=== PATIENT | female | born 1975 | race Hispanic/Latino ===

== ENCOUNTER 2017-10-28 12:42 | Emergency (ER) | payer OTHER ==
--- NOTE | 2017-10-28 13:47 | RAD REPORT ---
EXAM DESCRIPTION: Katya Danielle (2 Views)10/28/2017 1:35 pm CLINICAL HISTORY: Cough COMPARISON: February 2017 FINDINGS: The lungs appear clear of acute infiltrate. The heart is normal size IMPRESSION: No acute abnormalities displayed
[2017-10-28] MEDS ORDERED: NA CHLORIDE 0.9% 1,000 ML ONE (13:53)
[2017-10-28 13:59] LABS: Absolute Lymphocytes (CBC) 1.3 K/uL (0.7-4.9); Absolute Monocytes 0.3 K/uL (0.1-1.3); Absolute Neutrophil 7.4 K/uL (1.8-8.0); Basophils % 0.4 % (0-1.3); Eosinophils % 0.4 % (0-4.4); Hematocrit 40.1 % (36.0-45.0); Lymphocytes % 14.2 % (15.3-44.8); MCH 31.2 pg (27.0-35.0); MCV 94.2 fL (80-100); Monocytes % 2.8 % (3.3-12.3); RBC Red Blood Cell Count 4.25 M/uL (3.86-4.86)
[2017-10-28 14:06] LABS: BUN Blood Urea Nitrogen 22 mg/dL (6-20); Bicarbonate 28 mEq/L (21-31); Glucose Level 122 mg/dL (65-120); Potassium 3.5 mEq/L (3.6-5.0); Sodium Level 135 mEq/L (135-145)
--- NOTE | 2017-10-28 16:41 | ER ---
Nurse's Notes [facility] Name: Gale Villalpando Age: 42 yrs Sex: Female : 1975 Arrival Date: 10/28/2017 Time: 12:45 Bed 25 Private MD: Diagnosis: Dehydration;Viral infection, unspecified Presentation: 10/28 12:49 Presenting complaint: Patient states: Sore throat, cough, congestion since Thursday. Seen aj by PCP and tested negative for flu and strep on Thursday. Started on ABX. Not feeling better. Transition of care: patient was not received from another setting of care. Onset of symptoms was October 25, 2017. Care prior to arrival: None. 12:49 Method Of Arrival: Ambulatory aj 12:49 Acuity: KAR 4 aj 13:57 Initial Sepsis Screen: Does the patient meet any 2 criteria? No. Patient's initial tl3 sepsis screen is negative. Does the patient have a suspected source of infection? No. Patient's initial sepsis screen is negative. Triage Assessment: 12:51 General: Appears in no apparent distress. ill, Behavior is calm, cooperative, aj appropriate for age. Pain: Complains of pain in back. EENT: Reports nasal congestion nasal discharge. Neuro: Level of Consciousness is awake, alert, obeys commands, Oriented to person, place, time, situation. Respiratory: Reports cough that is Airway is patent Respiratory effort is even, unlabored, Respiratory pattern is regular, symmetrical. Derm: Skin is intact, is healthy with good turgor, Skin is pink, warm \T\ dry. normal. 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 aj Historical: - Allergies: 12:51 Dilaudid; aj 12:51 Tramadol HCl; aj - Home Meds: 12:51 Cosentyx 300 mg subcutaneous once a month [Active]; hydrocodone-acetaminophen 10-325 mg aj Oral tab 1 tab PRN [Active]; Fentanyl Patch Topical 1 patch every 72 hours [Active]; Methotrexate (Anti-Rheumatic) Oral 25 mg WEEKLY [Active]; tizanidine oral oral [Active]; Celebrex Oral [Active]; 13:09 doxycycline hyclate 100 mg Oral cap [Active]; tl3 - PMHx: 12:51 Arthritis; spondylosis; aj - PSHx: 12:51 Cholecystectomy; Appendectomy; Hysterectomy; left knee; left foot; aj - Immunization history:: Adult Immunizations up to date. - Social history:: Smoking status: Patient/guardian denies using tobacco. Screenin:55 Abuse screen: Denies threats or abuse. Nutritional screening: No deficits noted. tl3 Tuberculosis screening: No symptoms or risk factors identified. Fall Risk None identified. Assessment: 13:05 General: Appears uncomfortable, well groomed, well developed, well nourished, Behavior tl3 is calm, cooperative, appropriate for age. Pain: Complains of pain in throat, back. Neuro: Level of Consciousness is awake, alert, obeys commands, Oriented to person, place, time, situation, Appropriate for age. Cardiovascular: Heart tones S1 S2 Patient's skin is warm and dry. Respiratory: Airway is patent Trachea midline Respiratory effort is even, unlabored, Respiratory pattern is regular, symmetrical, Breath sounds are clear bilaterally. GI: Bowel sounds present X 4 quads. GI: Reports anorexia. : No signs and/or symptoms were reported regarding the genitourinary system. EENT: Throat is reddened. Derm: No signs and/or symptoms reported regarding the dermatologic system. Musculoskeletal: No signs and/or symptoms reported regarding the musculoskeletal system. 13:09 Reassessment: seen by PCP and put of Doxycycline 100mg tabs to prevent pneumonia, strep tl3 and flu negative on Thursday. 13:57 Reassessment: Patient appears in no apparent distress at this time. No changes from tl3 previously documented assessment. Patient and/or family updated on plan of care and expected duration. Pain level reassessed. Patient is alert, oriented x 3, equal unlabored respirations, skin warm/dry/pink. pt resting, CT complete. 15:06 Reassessment: Patient appears in no apparent distress at this time. No changes from tl3 previously documented assessment. Patient and/or family updated on plan of care and expected duration. Pain level reassessed. Patient is alert, oriented x 3, equal unlabored respirations, skin warm/dry/pink. sleeping. 16:39 Reassessment: Patient appears in no apparent distress at this time. No changes from tl3 previously documented assessment. Patient and/or family updated on plan of care and expected duration. Pain level reassessed. Patient is alert, oriented x 3, equal unlabored respirations, skin warm/dry/pink. Jhoan at bedside discussing POC with pt and family. Vital Signs: 12:51 BP 117 / 88; Pulse 88; Resp 17; Temp 97.4; Pulse Ox 98% on R/A; Weight 72.57 kg; Height aj 5 ft. 4 in. (162.56 cm); 13:07 BP 124 / 91; Pulse 56; Resp 18; Pulse Ox 96% on R/A; tl3 15:06 BP 140 / 78; Pulse 56; Resp 18; Pulse Ox 100% on R/A; tl3 16:39 BP 123 / 77; Pulse 78; Resp 16; Temp 98.6; Pulse Ox 98% on R/A; tl3 12:51 Body Mass Index 27.46 (72.57 kg, 162.56 cm) ED Course: 12:45 Patient arrived in ED. mr 12:50 Triage completed. aj 12:51 Arm band placed on left wrist. Patient placed in an exam room. aj 13:00 Dianne Todd RN is Primary Nurse. tl3 13:01 Jhoan Coyle PA is PHCP. jr8 13:01 Florentin Bush MD is Attending Physician. jr8 13:25 Patient moved to radiology via wheelchair. sw 13:32 X-ray completed. Patient tolerated procedure well. sw 13:33 Patient moved back from radiology. sw 13:34 XRAY Chest Pa And Lat (2 Views) In Process Unspecified. EDMS 13:55 Patient has correct armband on for positive identification. Bed in low position. Call tl3 light in reach. Side rails up X2. Pulse ox on. NIBP on. Door closed. Lights dimmed. Warm blanket given. 13:55 Basic Metabolic Panel Sent. tl3 13:55 CBC with Diff Sent. tl3 13:55 No provider procedures requiring assistance completed. Inserted saline lock: 18 gauge tl3 in left antecubital area, using aseptic technique. Blood collected. 10/29 14:31 IV discontinued, intact, bleeding controlled, No redness/swelling at site. Pressure tl3 dressing applied. Administered Medications: 10/28 13:55 Drug: NS 0.9% 1000 ml Route: IV; Rate: 1000 ml; Site: left antecubital; Delivery: tl3 Primary tubing; 15:07 Follow up: IV Status: Completed infusion; IV Intake: 1000ml tl3 Intake: 15:07 IV: 1000ml; Total: 1000ml. tl3 Outcome: 16:40 Discharge ordered by MD. kim 17:17 Patient left the ED. 10/29 14:30 Discharged to home ambulatory. tl3 Condition: good Discharge instructions given to patient, Instructed on discharge instructions, follow up and referral plans. Demonstrated understanding of instructions, follow-up care. Signatures: Dispatcher [employer] Rere Kent, RN Nenita Sears Irene, RN RN iw Roszak, Josh, PA PA jr8 Warren, Shannon sw Lowrey, Tammy, RN RN tl3
--- NOTE | 2017-10-28 16:41 | EDPHYS ---
Physician Documentation [facility] Name: Gale Villalpando Age: 42 yrs Sex: Female : 1975 Arrival Date: 10/28/2017 Time: 12:45 Bed 25 Private MD: ED Physician Florentin Bush HPI: 10/28 13:34 This 42 yrs old Female presents to ER via Ambulatory with complaints of Sore jr8 Throat, Fever. 13:34 The patient presents with sore throat. The patient describes throat pain as constant. jr8 Onset: The symptoms/episode began/occurred acutely, 3 day(s) ago. Severity of symptoms: At their worst the symptoms were moderate, in the emergency department the symptoms are unchanged. Modifying factors: The symptoms are alleviated by nothing, the symptoms are aggravated by nothing, Patient's oral intake status: good. Associated signs and symptoms: Pertinent positives: cough, fever. The patient has not experienced similar symptoms in the past. The patient has been recently seen by a physician:. Patient seen by PCP. Given doxycycline for fevers and URI symptoms because she is on biologic for psoriatic arthritis. Still not getting better. 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 aj Historical: - Allergies: 12:51 Dilaudid; aj 12:51 Tramadol HCl; aj - Home Meds: 12:51 Cosentyx 300 mg subcutaneous once a month [Active]; hydrocodone-acetaminophen 10-325 mg aj Oral tab 1 tab PRN [Active]; Fentanyl Patch Topical 1 patch every 72 hours [Active]; Methotrexate (Anti-Rheumatic) Oral 25 mg WEEKLY [Active]; tizanidine oral oral [Active]; Celebrex Oral [Active]; 13:09 doxycycline hyclate 100 mg Oral cap [Active]; tl3 - PMHx: 12:51 Arthritis; spondylosis; aj - PSHx: 12:51 Cholecystectomy; Appendectomy; Hysterectomy; left knee; left foot; aj - Immunization history:: Adult Immunizations up to date. - Social history:: Smoking status: Patient/guardian denies using tobacco. ROS: 13:34 Eyes: Negative for injury, pain, redness, and discharge, Neck: Negative for injury, jr8 pain, and swelling, Abdomen/GI: Negative for abdominal pain, nausea, vomiting, diarrhea, and constipation, Back: Negative for injury and pain, MS/Extremity: Negative for injury and deformity, Skin: Negative for injury, rash, and discoloration, Neuro: Negative for headache, weakness, numbness, tingling, and seizure. 13:34 Constitutional: Positive for body aches, chills, fever, malaise. 13:34 ENT: Positive for rhinorrhea, sinus congestion, sore throat, Negative for drainage from ear(s), ear pain, sinus congestion, difficulty swallowing, difficulty handling secretions, hoarseness. 13:34 Respiratory: Positive for cough, brown and green, shortness of breath, Negative for dyspnea on exertion, wheezing. Exam: 13:34 Eyes: Pupils equal round and reactive to light, extra-ocular motions intact. Lids and jr8 lashes normal. Conjunctiva and sclera are non-icteric and not injected. Cornea within normal limits. Periorbital areas with no swelling, redness, or edema. ENT: Nares patent. No nasal discharge, no septal abnormalities noted. Tympanic membranes are normal and external auditory canals are clear. Oropharynx with no redness, swelling, or masses, exudates, or evidence of obstruction, uvula midline. Mucous membranes moist. Neck: Trachea midline, no thyromegaly or masses palpated, and no cervical lymphadenopathy. Supple, full range of motion without nuchal rigidity, or vertebral point tenderness. No Meningismus. Cardiovascular: Regular rate and rhythm with a normal S1 and S2. No gallops, murmurs, or rubs. Normal PMI, no JVD. No pulse deficits. Respiratory: Lungs have equal breath sounds bilaterally, clear to auscultation and percussion. No rales, rhonchi or wheezes noted. No increased work of breathing, no retractions or nasal flaring. Abdomen/GI: Soft, non-tender, with normal bowel sounds. No distension or tympany. No guarding or rebound. No evidence of tenderness throughout. Back: No spinal tenderness. No costovertebral tenderness. Full range of motion. Skin: Warm, dry with normal turgor. Normal color with no rashes, no lesions, and no evidence of cellulitis. MS/ Extremity: Pulses equal, no cyanosis. Neurovascular intact. Full, normal range of motion. Neuro: Awake and alert, GCS 15, oriented to person, place, time, and situation. Cranial nerves II-XII grossly intact. Motor strength 5/5 in all extremities. Sensory grossly intact. Cerebellar exam normal. Normal gait. Vital Signs: 12:51 BP 117 / 88; Pulse 88; Resp 17; Temp 97.4; Pulse Ox 98% on R/A; Weight 72.57 kg; Height aj 5 ft. 4 in. (162.56 cm); 13:07 BP 124 / 91; Pulse 56; Resp 18; Pulse Ox 96% on R/A; tl3 15:06 BP 140 / 78; Pulse 56; Resp 18; Pulse Ox 100% on R/A; tl3 16:39 BP 123 / 77; Pulse 78; Resp 16; Temp 98.6; Pulse Ox 98% on R/A; tl3 12:51 Body Mass Index 27.46 (72.57 kg, 162.56 cm) aj MDM: 13:01 Patient medically screened. [facility] 16:39 Data reviewed: vital signs, nurses notes, lab test result(s), radiologic studies, plain jr8 films, and as a result, I will discharge patient. Data interpreted: Pulse oximetry: on room air is 100 %. Interpretation: normal. Counseling: I had a detailed discussion with the patient and/or guardian regarding: the historical points, exam findings, and any diagnostic results supporting the discharge/admit diagnosis, lab results, radiology results, the need for outpatient follow up, a family practitioner, to return to the emergency department if symptoms worsen or persist or if there are any questions or concerns that arise at home. Response to treatment: the patient's symptoms have mildly improved after treatment, patient is well hydrated. 10/28 13:17 Order name: CBC with Diff [facility] 10/28 13:17 Order name: Basic Metabolic Panel [facility] 10/28 13:17 Order name: XRAY Chest Pa And Lat (2 Views); Complete Time: 13:50 [facility] 10/28 13:18 Order name: CBC with Automated Diff; Complete Time: 14:07 [facility] 10/28 13:18 Order name: Basic Metabolic Panel; Complete Time: 14:07 [facility] 10/28 16:07 Order name: Urine Dipstick--Ancillary (enter results); Complete Time: 16:49 [facility] 10/28 13:17 Order name: IV; Complete Time: 13:55 [facility] 10/28 13:17 Order name: Urine Dipstick-Ancillary (obtain specimen); Complete Time: 16:06 jr8 Administered Medications: 13:55 Drug: NS 0.9% 1000 ml Route: IV; Rate: 1000 ml; Site: left antecubital; Delivery: tl3 Primary tubing; 15:07 Follow up: IV Status: Completed infusion; IV Intake: 1000ml tl3 Disposition: 18:05 Co-signature as Attending Physician, Florentin Bush MD I agree with the assessment and kdr plan of care. Disposition: 10/28/17 16:40 Discharged to Home. Impression: Dehydration, Viral infection, unspecified. - Condition is Stable. - Discharge Instructions: Dehydration, Adult, Viral Infections. - Medication Reconciliation Form, Thank You Letter, Antibiotic Education, Prescription Opioid Use form. - Follow up: Private Physician; When: 2 - 3 days; Reason: Recheck today's complaints, Continuance of care, Re-evaluation by your physician. - Problem is new. - Symptoms have improved. Signatures: Dispatcher [employer] EDRere Talley RN Florentin Claudio MD MD [facility] Emelia Nj RN RN iw Jhoan Coyle, RICHARD PA jr8 Dianne Todd RN RN tl3 Corrections: (The following items were deleted from the chart) 17:17 16:40 10/28/2017 16:40 Discharged to Home. Impression: Dehydration; Viral infection, iw unspecified. Condition is Stable. Forms are Medication Reconciliation Form, Thank You Letter, Antibiotic Education, Prescription Opioid Use. Follow up: Private Physician; When: 2 - 3 days; Reason: Recheck today's complaints, Continuance of care, Re-evaluation by your physician. Problem is new. Symptoms have improved. jr8
[2017-10-28 16:44] LABS: Urine Blood 2+ (NEG); Urine Glucose NEGATIVE (NEG); Urine Protein NEGATIVE (NEG); Urine Specific Gravity 1.015 (1.005-1.030)
[2017-10-28 17:28] VITALS: BP 123/77; TEMP 98.6; O2SAT 98
== END 2017-10-28 17:17 | disposition home or self-care (01) ==
LOC: ER 12:42
DX: B34.9 Viral infection, unspecified (principal); E86.0 Dehydration; M19.90 Unspecified osteoarthritis, unspecified site; Z88.6 Allergy status to analgesic agent
CPT/HCPCS: 36415; 71046; 80048; 81003; 85025; 96360; 99284; J7030

== ENCOUNTER 2020-03-09 12:51 | Observation (INO) | payer OTHER ==
--- OUTSIDE RECORDS SUMMARY | 2020-03-09 12:53 | XMS REPORT | Clinical Summary ---
:1975 Author Organization [facility] Address [address] [place] [id number] Care Team Providers Name Role Phone Alberkanu Delia Primary Care Provider Allergies Active Allergy Reactions Severity Noted Date Comments Hydromorphone GI Intolerance Medium 12/02/2018 Methotrexate Rash Low 12/02/2018 Medications Medication Sig Dispensed Refills Start Date End Date Status celecoxib (CeleBREX) 0 11/07/2018 Active 200 MG capsule gabapentin (NEURONTIN) Take 300 mg by 0 11/15/2018 Active 300 mg capsule mouth 4 (four) times a day. estradiol (VIVELLE-DOT) 0 11/18/2018 Active 0.1 mg/24 hr secukinumab (COSENTYX) Inject 300 mg 0 Active 150 mg/mL syringe under the skin every 14 (fourteen) days. trazodone HCl Take 1 tablet by 0 Active (TRAZODONE ORAL) mouth nightly. dexlansoprazole Take 60 mg by 0 Active (DEXILANT) 60 mg mouth daily. capsule HYDROcodone-acetaminoph 0 05/08/2015 Active en (NORCO) 10-325 mg per tablet hydrOXYzine (ATARAX) 50 Take 50 mg by 0 04/19/2019 Active MG tablet mouth Every 6 hours while awake as needed (RT). ipratropium (ATROVENT) ipratropium 0 Active 0.03 % nasal spray bromide 0.03 % nasal spray methocarbamol (ROBAXIN) methocarbamol 500 0 Active 500 MG tablet mg tablet lubiprostone (AMITIZA) AMITIZA 24 MCG 0 01/28/2019 Active 24 MCG capsule CAPS LORAZepam (ATIVAN) 1 MG lorazepam 1 mg 0 Active tablet tablet methotrexate 2.5 MG methotrexate 0 Active tablet sodium 2.5 mg tablet naloxegol (MOVANTIK) 25 Movantik 25 mg 0 Active mg tablet tablet tablet omeprazole (PriLOSEC) omeprazole 40 mg 0 Active 40 MG capsule capsule,delayed release predniSONE (DELTASONE) prednisone 10 mg 0 Active 10 mg tablet tablet promethazine promethazine 25 mg 0 Active (PHENERGAN) 25 MG tablet tablet temazepam (RESTORIL) 15 temazepam 15 mg 0 Active mg capsule capsule triazolam (HALCION) triazolam 0.25 mg 0 Active 0.25 MG tablet tablet morphine (MORPHABOND every 12 (twelve) 0 02/10/2019 Active ER) 15 mg tablet,oral hours. only,ext.rel.12 hr leflunomide (ARAVA) 20 1 (one) time each 0 9 Active MG tablet day at the same time. methylPREDNISolone follow package 1 tablet 0 05/04/201905/09 (MEDROL, NILSA,) 4 mg directions 19 tablet Active Problems No known active problems Encounters Date Type Specialty Care Team Description 05/26/2019 Hospital Encounter Radiology Jason Curtis Cervica l radiculopathy 05/04/2019 Office Visit Orthopedic Surgery Jason Curtis Cervмарина l radiculopathy (Primary Dx); Tear of left ro tator cuff, unspecified tear extent, unspecified whether traumatic 05/04/2019 Abstract Orthopedic Surgery Jason Curtis MD 04/26/2019 Telephone Radiology Jason Curtis MD 04/20/2019 Office Visit Orthopedic Surgery Jason Curtis, Tear of left rotator cuff, unspecified tear extent, unspecified whether traumatic (Primary Dx); Cervical radicu lopathy 04/19/2019 Abstract Orthopedic Surgery Jason Cutris MD after 03/09/2019 Social History Tobacco Use Types Packs/Day Years Used Date Never Smoker Smokeless Tobacco: Never Used Alcohol Use Drinks/Week oz/Week Comments Not Currently Sex Assigned at Date Recorded Not on file Last Filed Vital Signs Not on file Plan of Treatment Health Maintenance Due Date Last Done Comments CERVICAL CANCER SCREENING 1995 INFLUENZA VACCINE 01/14/2020 Implants Implanted Type Area Zone Manager Device Shelf Model / Identifier Expiration Serial / Date Lot Bipolar Forceps [id number] Accessories N/A: N/A 05/14/2023 [id number] / Implanted: Qty: 1 on 12/09/2018 by Rashi Cardona MD at [facility] / [id number] Procedures Procedure Name Priority Date/Time Associated Diagnosis Comme nts MRI CERVICAL SPINE Routine 05/26/2019 2:28 Cervical radiculop athy Results for this WO CONTRAST PM NEUROLOGY TEACHER procedure are i n the results section. MRI SHOULDER WO Routine 04/27/2019 2:14 Tear of left rotator Results for this CONTRAST LEFT PM NEUROLOGY TEACHER cuff, unspecified tear proc edure are in extent, unspecified the resu lts whether traumatic section. XR SHOULDER 2+ VW Routine 04/20/2019 1:22 Acute pain of left Results for this LEFT PM NEUROLOGY TEACHER shoulder procedure are i n the results section. after 03/09/2019 Results MRI Cervical Spine Wo Contrast (05/26/2019 2:28 PM NEUROLOGY TEACHER) Specimen Narrative Performed At This result has an attachment that is no t available. EXAMINATION: MRI CERVICAL SPINE WO CONTRAST [facility] CLINICAL HISTORY: M54.12 Radiculopathy cervical region, Neck pain chronic normal neuro exam neg xray COMPARISON: None TECHNIQUE: Multiplanar multisequence non contrast enhanced examination was performed of the cervical spine. FINDINGS: Vertebral body heights are maintained. The cervicomedullary junction is unremarkable. No cord signal abnormality identified. No focal marrow lesions. No masses are present in the visualized prevertebral soft tissues. Cervical alignment is preserved with nor mal lordosis. There is no significant spondylolisthesis. Axial images through the disc spaces demonstrate the f ollowing: C1-C2: There is narrowing of the atlanto axial interval with spurring. There is no significant stenosis. C2-C3: No significant posterior disc dis ease, spinal canal or neural foraminal stenosis. C3-C4: No significant posterior disc dis ease, spinal canal or neural foraminal stenosis. C4-C5: There is minimal posterior spondy losis. There is no stenosis. There is mild disc desiccation. C5-C6: There is mild disc desiccation an d posterior spondylosis without stenosis. The foramina are patent. C6-C7: No significant posterior disc dis ease, spinal canal or neural foraminal stenosis. C7-T1: No significant posterior disc dis ease, spinal canal or neural foraminal stenosis. No significant posterior disc disease, s chandler canal or neural foraminal stenosis at other visualized levels. IMPRESSION: There is minimal spondylosis at C4-5 and C5-6 with disc desiccation and minimal bulges without stenosis. [facility]-[id number] Procedure Note Hm Interface, Radiology Results - 05/26/2019 2:50 PM NEUROLOGY TEACHER EXAMINATION: MRI CERVICAL SPINE WO CONTRAST CLINICAL HISTORY: M54.12 Radiculopathy cervical region, Neck pain chronic normal neuro exam neg xray COMPARISON: None TECHNIQUE: Multiplanar multisequence non contrast enhanced examination was performed of the cervical spine. FINDINGS: Vertebral body heights are maintained. The cervicomedullary junction is unremarkable. No cord signal abnormality identified. No focal marrow lesions. No masses are present in the visualized prevertebral soft tissues. Cervical alignment is preserved with nor mal lordosis. There is no significant spondylolisthesis. Axial images through the disc spaces dem onstrate the following: C1-C2: There is narrowing of the atlanto axial interval with spurring. There is no significant stenosis. C2-C3: No significant posterior disc dis ease, spinal canal or neural foraminal stenosis. C3-C4: No significant posterior disc dis ease, spinal canal or neural foraminal stenosis. C4-C5: There is minimal posterior spondy losis. There is no stenosis. There is mild disc desiccation. C5-C6: There is mild disc desiccation an d posterior spondylosis without stenosis. The foramina are patent. C6-C7: No significant posterior disc dis ease, spinal canal or neural foraminal stenosis. C7-T1: No significant posterior disc dis ease, spinal canal or neural foraminal stenosis. No significant posterior disc disease, s chandler canal or neural foraminal stenosis at other visualized levels. IMPRESSION: There is minimal spondylosis at C4-5 and C5-6 with disc desiccation and minimal bulges without stenosis. [facility]-[id number] Performing Organization Address City/State/ZIP Code Phon e Number [facility] [id number] [place] [address] MRI Shoulder Wo Contrast Left (04/27/2019 2:14 PM NEUROLOGY TEACHER) Specimen Narrative Performed At This result has an attachment that is no t available. MRI SHOULDER WO CONTRAST LEFT [facility] CLINICAL INDICATION: M75.102 Unspecifi ed rotator cuff tear or rupture of left shoulder not specified as traumatic, Shoulder pain rotator cuff tear impingement suspected TECHNIQUE: Multiplanar multisequence M R imaging of the left shoulder was performed without gadolinium contrast. COMPARISON: None. FINDINGS: ROTATOR CUFF: Tendinopathy and low-grade partial insertional tearing is present in the anterior supraspinatus at its insertion, the tear about 6 mm in greatest anterior posterior extent and less than 3 mm in length. This appears less than 50% of tendon fibers reflecting a low-grade partial te ar. No high-grade component tear is identified. LABRUM: Intact. AC JOINT: Mild arthrosis. Type 2 acrom ion noted. Lateral downsloping acromion is present with mild encroachment upon the acromiohumeral interval at 7 mm. BONES: No focal osseous abnormality. GLENOHUMERAL JOINT: No effusion or significant osteoar thritis. BICEPS TENDONS: Long and short head tend ons are intact. No subluxation of the long head from the bicipital groove. SOFT TISSUES: No muscle strain, atrophy or findings fo r bursitis. IMPRESSION: Low-grade partial insertional tear of the anterior sup raspinatus as described. No high-grade rotator cuff tear. *[id number] Procedure Note Hm Interface, Radiology Results Incoming - 04/27/2019 2:29 PM NEUROLOGY TEACHER MRI SHOULDER WO CONTRAST LEFT CLINICAL INDICATION: M75.102 Unspecifie d rotator cuff tear or rupture of left shoulder not specified as traumatic, Shoulder pain rotator cuff tear impingement suspected TECHNIQUE: Multiplanar multisequence MR imaging of the left shoulder was performed without gadolinium contrast. COMPARISON: None. FINDINGS: ROTATOR CUFF: Tendinopathy and low-grade partial insertional tearing is present in the anterior supraspinatus at its insertion, the tear about 6 mm in greatest anterior posterior extent and less than 3 mm in length. This appears less than 50% of tendon fibers reflecting a low-grade partial te ar. No high-grade component tear is identified. LABRUM: Intact. AC JOINT: Mild arthrosis. Type 2 acromi on noted. Lateral downsloping acromion is present with mild encroachment upon the acromiohumeral interval at 7 mm. BONES: No focal osseous abnormality. GLENOHUMERAL JOINT: No effusion or signi ficant osteoarthritis. BICEPS TENDONS: Long and short head tend ons are intact. No subluxation of the long head from the bicipital groove. SOFT TISSUES: No muscle strain, atrophy or findings for bursitis. IMPRESSION: Low-grade partial insertional tear of th e anterior supraspinatus as described. No high-grade rotator cuff tear. *[id number] Performing Organization Address City/[facility]/ZIP Code Phon e Number [facility] [address] [place] [address] XR Shoulder 2+ Vw Left (04/20/2019 1:22 PM NEUROLOGY TEACHER) Specimen Narrative Performed At This result has an attachment that is no t available. 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
--- OUTSIDE RECORDS SUMMARY | 2020-03-09 12:54 | XMS REPORT | Continuity of Care Document ---
:1975 Author Organization Player [employer] Care Team Providers Name Role Phone [employer] Unavailable Un available Problems Problem Status Onset Classification Date Comments Sourc e Date Reported L40.50 - Active 05/29/20 OP[facility] "ARTHROPATHIC [address] [place] PSORIASIS, UNSPEC Bradycardia Active 07/14/19 Problem 02/08/2019 Data Medi glenn (disorder) 15 migrated Group,2.1 6. from GE 840.1.1138 8 Centricity 3.3.615.1 35 on 11/11/14. , MARSHALL Meneses, [facility] [place] Carpal tunnel Active 07/14/19 Problem 02/08/2019 Data Me dical syndrome 15 migrated Group,2.16 . (disorder) from GE 840.1.113 88 Cent[facility] 3.3.615.1 35 on 11/11/14. , MARSHALL Meneses, [facility] [place] Discharge 02/22/20 02/24/2014 Diagnosis: Cyst, 14 Sirena theast ovarian LEFT LOWER Active 02/22/20 ABDOMINAL PAIN 14 [place] 616.0 - Active 01/28/20 [facility] CERVICITIS 723.4 14 [place] - BRACHIAL NEUR Allergic rhinitis Active 12/16/19 Problem 02/08/2019 Data [facility] (disorder) 14 migrated Group,2.1 6. from GE [id number] 8 [place] 3.3.615.1 35 on 11/11/14. , MARSHALL Meneses, [facility] [place] Elevated Active 12/16/19 Problem 02/08/2019 Data Medica l blood-pressure 14 migrated Group ,2.16. reading without from GE 840. [id number] diagnosis of Centricity 3.3.61 5.135 hypertension on 11/11/14. , O PID (finding) Gideon [facility] [place] PSORIATIC Active 11/10/19 ARTHRITIS FLARE 14 [place] CHEST PAIN Active 11/10/19 14 [place] ATYPICAL CHEST Active 11/10/19 PAIN 14 [place] Muscle pain Active 05/16/20 Problem 02/08/2019 Data Medi glenn (finding) 13 migrated Group,2.16 . from GE [id number] 8 [place] 3.3.615.1 35 on 11/11/14. , MARSHALL Meneses, [facility] [place] Hyperlipidemia Active 02/10/20 Problem 02/08/2019 Data M edical (disorder) 13 migrated Group,2.1 6. from GE [id number] 8 [place] 3.3.615.1 35 on 11/11/14. , MARSHALL Meneses, [facility] [place] Peripheral edema Active 11/19/19 Problem 02/08/2019 Data Medical (disorder) 13 migrated Group,2.1 6. from GE [id number] 8 [place] 3.3.615.1 35 on 11/11/14. , MARSHALL Meneses, [facility] [place] Cobalamin Active 10/28/19 Problem 02/08/2019 Data Medica l deficiency 13 migrated Group,2.1 6. (disorder) from GE 840.1.113 88 Cent[facility] 3.3.615.1 35 on 11/11/14. , MARSHALL Meneses, [facility] [place] Vitamin D Active 10/28/19 Problem 02/08/2019 Data Medica l deficiency 13 migrated Group,2.1 6. (disorder) from GE 840.1.113 88 Cent[facility] 3.3.615.1 35 on 11/11/14. , MARSHALL Meneses, [facility] [place] Anxiety disorder Active 10/27/19 Problem 02/08/2019 Data Medical (disorder) 13 migrated Group,2.1 6. from GE 840.1.1138 8 [place] 3.3.615.1 35 on 11/11/14. , MARSHALL Meneses, [facility] [place] Chronic pain Active 10/27/19 Problem 02/08/2019 Data Med ical syndrome 13 migrated Group,2.16 . (disorder) from GE 840.1.113 88 Cent[place] 3.3.615.1 35 on 11/11/14. , MARSHALL Meneses, [facility] [place] Elevated levels Active 10/27/19 Problem 02/08/2019 Data [facility] of transaminase & 13 migrated Gr oup,2.16. lactic acid from GE 840.1.11 388 dehydrogenase Centricity 3.3.6 15.135 (finding) on 11/11/14. , MARSHALL Meneses, [facility] [place] Fatigue (finding) Active 10/27/19 Problem 02/08/2019 Data H Medical 13 migrated Group,2.16 . from GE 840.1.1138 8 Cent[place] 3.3.615.1 35 on 11/11/14. , MARSHALL Meneses, [facility] [place] Insomnia Active 10/27/19 Problem 02/08/2019 Data Medica l (disorder) 13 migrated Group,2.1 6. from GE 840.1.1138 8 [place] 3.3.615.1 35 on 11/11/14. , MARSHALL Meneses, [facility] [place] Migraine Active 10/27/19 Problem 02/08/2019 Data Medica l (disorder) 13 migrated Group,2.1 6. from GE 840.1.1138 8 Cent[place] 3.3.615.1 35 on 11/11/14. , MARSHALL Meneses, [facility] [place] Psoriasis with Active 10/27/19 Problem 02/08/2019 Data [facility] edical arthropathy 13 migrated Group,2. 16. (disorder) from GE 840.1.113 88 [place] 3.3.615.1 35 on 11/11/14. 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 16. (disorder) 840.1.113 88 3.3.615.13 5 , MARSHALL Meneses, [place], M H [facility] [place] Cyst of ovary Resolved Problem 02/08/2019 MH Me dical (disorder) Group,2.1 6. 840.1.1138 8 3.3.615.13 5 , MARSHALL Meneses, [place], M H MARSHALL [place] Rheumatoid Active Problem 11/13/2013 arthritis [place] (disorder) PSORIATIC Active ARTHROPATHY [place] CHEST PAIN NOS Active [facility] Medications Medication Details Route Status Patient Ordering Order Source Instructions Provider Date Acetaminophen 300 MG 1 - 2 tab, Active / Codeine Phosphate PO, Q4H, 2013 Sirena theast 30 MG Oral Tablet Pain, # 20 [Tylenol with tab, 0 Codeine #3] Refill(s) Ondansetron 8 MG 8 mg = 1 Active Oral Tablet [Zofran] tab, PO, 2013 [place] TID, # 10 tab, 0 Refill(s) Ondansetron 4 mg, Route: Inactive IVP, Drug 2013 [facility] form: INJ, ONCE, Dosing Weight 75, kg, Priority: STAT, Start date: 02/21/14 11:45:00, Stop date: 02/21/14 11:45:00 Acetaminophen 325 MG 1 tab, Inactive / Hydrocodone Route: PO, [address] [facility] [address] Bitartrate 5 MG Oral Dosing Tablet Weight 75, kg, ONCE, STAT, Start date: 02/21/14 11:45:00, Stop date: 02/21/14 11:45:00 Morphine 4 mg, Route: Inactive IVP, Drug 2013 [facility] form: INJ, ONCE, Dosing Weight 75, kg, Priority: STAT, Start date: 02/21/14 10:11:00, Stop date: 02/21/14 10:11:00 Morphine 4 mg, Route: Inactive IVP, Drug 2013 [facility] form: INJ, ONCE, Dosing Weight 75, kg, Priority: STAT, Start date: 02/21/14 9:00:00, Stop date: 02/21/14 9:00:00 Zofran 4 mg, Route: Inactive IVP, Drug 2013 [facility] form: INJ, ONCE, Dosing Weight 75, kg, Priority: STAT, Start date: 02/21/14 8:52:00, Stop date: 02/21/14 8:52:00 Sodium Chloride 1,000 mL, Inactive 0.154 MEQ/ML 1,000 ml/hr, 2013 [facility] Injectable Solution Infuse Over: 1 hr, Route: IV, ONCE, Priority: STAT, Dosing Weight 75 kg, Start date: 02/21/14 8:52:00, Duration: 1 doses or times, Stop date: 02/21/14 8:52:00 Lyrica Notes: (Same No Longer as: Lyrica) Active 2013 [facility] Methylprednisolone Notes: (Same Inactive as:Solu-MEDR 2013 [facility] OL, A-Methapred) Demerol HCl Notes: (Same No Longer As: Demerol) Active 2013 [facility] Flexeril Notes: (Same No Longer As: Active 2013 [facility] Flexeril) Zanaflex Notes: (Same Inactive As: 2013 [facility] Zanaflex) Celebrex Notes: No Longer NSAID. Active 2013 [facility] Please check indication. Not for seizure. (Same As: CeleBREX) Enoxaparin Notes: (Same No Longer as: Lovenox) Active 2013 [facility] Demerol HCl Notes: (Same No Longer As: Demerol) Active 2013 [facility] Acetaminophen 325 MG Notes: Do No Longer / Hydrocodone not exceed Active 2013 [facility] Bitartrate 10 MG 4gm/day of Oral Tablet acetaminophe n. (Same as: [place] 325/10) Zanaflex 4 mg, PO, On Hold BID, 0 2013 [facility] Refill(s) Celebrex Daily, 0 On Hold Refill(s) 2013 [facility] Acetaminophen 325 MG 1 tab, PO, On Hold / Hydrocodone Q6H, as 2013 [facility] Bitartrate 10 MG needed for Oral Tablet pain, 0 Refill(s) Methotrexate 17.5 mg, PO, On Hold qWeek, 0 2013 [facility] Refill(s) nitroglycerin 0.4 mg Notes: (Same No Longer 10/14 sublingual tablet as:Nitroquic Active 2013 [place], Nitrostat) "Do Not Crush" Sublingual tablet atropine 0.5 mg, 5 No Longer mL, Route: Active 2013 [facility] IVP, Drug form: INJ, PRN, PRN Bradycardia, Start date: 11/09/13 20:46:00, Duration: 30 day, Stop date: 12/09/13 20:45:00 Cirpiano Notes: (Same No Longer As: Ambien) Active 2013 [facility] Morphine Notes: (Same No Longer as:MORPhine Active 2013 [facility] Sulfate) Allergies, Adverse Reactions, Alerts Substance Category Reaction Severity Reaction Status Date Comments S ource type Reported HYDROmorpho Assertion Drug Active Data 2.16.84 ne<sup>1</s allergy 3 migrated 0.1 .113 up> from [employer] 883.3.6 [place] 15.13 5 on 10/12/14. Originally documented as DILAUDID. severe headache, vomiting Toradol Assertion Drug Active 2.16.8 4 allergy 0.1.113 883.3.6 15.135 Dilaudid Assertion Drug Active 2.16. 84 allergy 0.1.113 883.3.6 15.135 Immunizations Immunization Date Given Site Status Last Comments Source Updated Hx influenza 03/02/2013 completed GE Result Med ica vaccine-unspecifi Comment: Gr oup,2.16. ed<sup>1</sup> received. 840.1 .35966 Migrated from 3.3.61 5.135 OBS ; Data , OPI D migrated from Jac n [employer] Centricity on 07/17/2015. Results Order Name Results Value Reference Date Interpretation Comments Sirena rce Range CHEM PANEL Lipase Lvl 50 73 - 393 02/21 [facility] CHEM PANEL A/G Ratio 1.2 0.7 - 1.6 02/21 [facility] CHEM PANEL Globulin 3.5 2.0 - 4.0 02/21 [facility] CHEM PANEL B/C Ratio 16 6 - 25 02/21 [facility] CHEM PANEL AGAP 13.4 10.0 - 02/21 MH 20.0 /2013 [facility] CHEM PANEL eGFR 108 02/21 <sup>1</sup>R esult [place] Comment: The eGFR is calculated using the CKD-EPI formula. In most young, healthy individuals the eGFR will be >90 mL/min/1.73m2 . The eGFR declines with age. An eGFR of 60-89 may be normal in some populations, particularly the elderly, for whom the CKD-EPI formula has not been extensively validated. Use of the eGFR is not recommended in the following populations:& lt;br/>
I ndividuals with unstable creatinine concentration s, including patients and those with serious co-morbid conditions.<b r/>
Patie nts with extremes in muscle mass or diet.

The data above are obtained from the National Kidney Disease Education Program (NKDEP) which additionally recommends that when the eGFR is used in patients with extremes of body mass index for purposes of drug dosing, the eGFR should be multiplied by the estimated BMI. CHEM PANEL Total 7.8 6.4 - 8.4 02/21 [facility] CHEM PANEL Bili Total 0.3 0.2 - 1.3 02/21 [facility] CHEM PANEL AST 15 0 - 37 02/21 [facility] CHEM PANEL Calcium Lvl 8.8 8.5 - 10.5 02/21 [facility] CHEM PANEL Sodium Lvl 137 135 - 145 02/21 [facility] CHEM PANEL Chloride Lvl 103 95 - 109 02/21 [facility] CHEM PANEL Potassium 3.4 3.5 - 5.1 02/21 Lvl [facility] CHEM PANEL CO2 24 24 - 32 02/21 [facility] CHEM PANEL Creatinine 0.7 0.5 - 1.4 02/21 [facility] CHEM PANEL Glucose Lvl 107 70 - 99 02/21 <sup>2</sup>I nterpretive [facility] Data: Adult reference range values reflect the clinical guidelines
of the [place] [employer]. CHEM PANEL Alk Phos 85 39 - 136 02/21 [facility] CHEM PANEL BUN 11 7 - 22 02/21 [facility] CHEM PANEL Albumin Lvl 4.3 3.5 - 5.0 02/21 [facility] CHEM PANEL ALT 15 0 - 65 02/21 [facility] HEMATOLOGY PT 12.9 12.0 - 02/21 14.7 /2013 [facility] HEMATOLOGY PTT 38.8 22.9 - 02/21 <sup>4</sup>I 35.8 /2013 nterpretive [facility] Data: Heparin Therapeutic Range: 57 - 92 Seconds HEMATOLOGY INR 0.97 0.85 - 02/21 <sup>3</sup>I MH 1.17 nterpretive [facility] Data: RECOMMENDED RANGES FOR PROTIME INR:
2.0-3.0 for most medical and surgical thromboemboli c states.
2.5-3.5 for artificial heart valves and recurrent embolism.<br/ >
INR SHOULD BE USED ONLY FOR PATIENTS ON STABLE ANTICOAGULANT THERAPY. HEMATOLOGY MPV 8.8 7.4 - 10.4 02/21 [facility] HEMATOLOGY MCHC 33.0 32.0 - 02/21 MH 36.0 /2013 [facility] HEMATOLOGY RDW 13.6 11.5 - 02/21 14.5 /2013 [facility] HEMATOLOGY Platelet 216 133 - 450 02/21 [facility] HEMATOLOGY MCH 29.8 27.0 - 02/21 31.0 /2013 [facility] HEMATOLOGY MCV 90.1 80.0 - 02/21 98.0 /2013 [facility] HEMATOLOGY Hgb 13.0 12.0 - 02/21 16.0 /2013 [facility] HEMATOLOGY Hct 39.4 36.0 - 02/21 48.0 /2013 [facility] HEMATOLOGY RBC 4.37 4.20 - 02/21 MH 5.40 /2013 [facility] HEMATOLOGY WBC 6.5 3.7 - 10.4 02/21 [facility] HEMATOLOGY Lymphocytes 1.4 1.0 - 5.5 02/21 # /2013 [facility] HEMATOLOGY Segs-Bands # 4.5 1.5 - 8.1 02/21 [facility] HEMATOLOGY Monocytes 7.9 2.0 - 12.0 02/21 [facility] HEMATOLOGY Eosinophils 0.7 0.0 - 4.0 02/21 [facility] HEMATOLOGY Segs 69.3 45.0 - 02/21 MH 75.0 /2013 [facility] HEMATOLOGY Lymphocytes 21.4 20.0 - 02/21 MH 40.0 /2013 [facility] HEMATOLOGY Basophils 0.7 0.0 - 1.0 02/21 [facility] HEMATOLOGY Monocytes # 0.5 0.0 - 0.8 02/21 [facility] URINE AND UA WBC 0-2 /HPF None Seen 02/21 STOOL /HPF /2013 [facility] URINE AND UA RBC 3-5 /HPF 0 - 2 02/21 STOOL /2013 [place] URINE AND UA Bacteria Few /HPF None Seen 02/21 STOOL /HPF /2013 [facility] URINE AND UA Mucus None Seen None Seen 02/21 STOOL (02/21/14 8:50 AM) [facility] st URINE AND UA Sq Epi Occasional Few /LPF 02/21 STOOL /LPF /2013 [facility] URINE AND Micro? Performed 02/21 STOOL (02/21/14 8:50 AM) [facility] st URINE AND UA Leuk Est Negative Negative 02/21 STOOL (02/21/14 8:50 AM) [facility] st URINE AND UA Nitrite Negative Negative 02/21 STOOL (02/21/14 8:50 AM) [facility] st URINE AND UA Ketones Negative Negative 02/21 STOOL *NA* /2013 [facility] (02/21/14 8:50 AM) URINE AND UA Color Yellow Yellow 02/21 STOOL *NA* /2013 [facility] (02/21/14 8:50 AM) URINE AND UA Spec Grav 1.010 <=1.030 02/21 STOOL [facility] URINE AND UA pH 6.0 5.0 - 8.0 02/21 STOOL [facility] URINE AND UA Glucose Negative Negative 02/21 STOOL (02/21/14 8:50 AM) [facility] URINE AND UA Protein Negative Negative 02/21 STOOL (02/21/14 8:50 AM) [facility] URINE AND UA Bili Negative Negative 02/21 STOOL *NA* /2013 [facility] (02/21/14 8:50 AM) URINE AND UA Blood Trace Negative 02/21 STOOL *ABN* /2013 [facility] (02/21/14 8:50 AM) URINE AND UA 0.2 0.1 - 1.0 02/21 STOOL Urobilinogen [facility] URINE AND UA Turbidity Clear Clear 02/21 STOOL (02/21/14 8:50 AM) [facility] URINE CHEM U Preg Negative Negative 02/21 (02/21/14 8:50 AM) [facility] CHEM PANEL eGFR 109 11/10 <sup>1</sup>R esult [facility] Comment: The eGFR is calculated using the CKD-EPI formula. In most young, healthy individuals the eGFR will be >90 mL/min/1.73m2 . The eGFR declines with age. An eGFR of 60-89 may be normal in some populations, particularly the elderly, for whom the CKD-EPI formula has not been extensively validated. Use of the eGFR is not recommended in the following populations:& lt;br/>
I ndividuals with unstable creatinine concentration s, including patients and those with serious co-morbid conditions.<b r/>
Patie nts with extremes in muscle mass or diet.

The data above are obtained from the National Kidney Disease Education Program (NKDEP) which additionally recommends that when the eGFR is used in patients with extremes of body mass index for purposes of drug dosing, the eGFR should be multiplied by the estimated BMI. CHEM PANEL Creatinine 0.7 0.5 - 1.4 11/10 Lvl [facility] HEMATOLOGY Sed Rate 13 0 - 20 11/10 [facility] HEMATOLOGY Platelet 231 133 - 450 11/10 [facility] HEMATOLOGY PTT 38.9 22.9 - 11/10 <sup>3</sup>I 35.8 nterpretive [facility] Data: Heparin Therapeutic Range: 57 - 92 Seconds HEMATOLOGY D-Dimer 0.22 11/10 <sup>2</sup>I nterpretive [facility] Data: In DIC, quantitative D-Dimer is generally greater than
0.66 ug/mL FEU. Values of quantitative D-Dimer less than
0.40 ug/mL FEU have been reported to be associated with a low
proba bility of deep vein thrombosis/pu lmonary embolism.<br/ >This test alone should not be used to rule out DVT/PE. CARDIAC CK MB 0.6 0.5 - 3.6 11/10 ENZYMES /2013 [facility] CARDIAC Troponin-I 0.02 0.00 - 11/10 ENZYMES 0.40 /2013 [facility] Pathology Reports No Data Provided for This Section Diagnostic Reports Report Value Date Source Spine cervical comp w EXAM: XR CERVICAL SPINE 7 VIEWS 09/12/2016 MARSHALL [place] obl-flx/ext DX DATE: 09/12/2016 12:37 PM CDT INDICATION: M54.12 Radiculopathy, cervical reg ion COMPARISON: None TECHNIQUE: AP, lateral, ope n-mouth odontoid, RPO and LPO, flexion, extension radiographs of the cervical spine show from the skull base through T1. FINDINGS: Vertebral body hei ghts and alignment are preserved. There is no disk height loss or neuroforaminal narrowing. There is no abnormal motion upon flexion or extension. No prevertebral or paraspinous soft tissue abnormality is identified. IMPRESSION: Normal cervical spine. No instability on the dyn amic views. Hand 2 views EXAM: XR BILATERAL HAND 2 VIEWS 09/12/2016 OPID [place] Bilateral DX DATE: 09/12/2016 12:38 PM CDT INDICATION: L40.50 Arthropathic psoriasis, uns pecified COMPARISON: 05/30/2015 TECHNIQUE: PA and lateral radiographs of the gareth ateral hands. FINDINGS: No fracture or dislocation. No osseous lesions. No significant joint abnormality. No soft tissue abnormality is identified. IMPRESSION: No significant osseous or joint abn ormality. Spine lumbar 2 or 3 EXAM: XR LUMBAR SPINE 2 VIEWS 09/12/2016 OPID [place] views DX DATE: 09/12/2016 12:37 PM CDT INDICATION: M54.16 Radiculopathy, lumbar regio n COMPARISON: CT dated 02/21/2014 and radiograph d ated 05/30/2015 TECHNIQUE: AP and lateral radiographs of the lum bar spine FINDINGS: 5 lumbar type, non-rib bearing vertebr al bodies are present. Redemonstration of the conge nital partial fusion of L1 and L2 posterior elements and narrowing of L1-L2 disc space. Disc spaces are otherwise unremarkable. Alignment and vertebral body heights are raquel l. No osseous lesions. No fr acture. Note is made of spina bifida occulta T11 and L5. No soft tissue abnormality is identified. IMPRESSION: 1. No significant change compared to lynette or study. 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 Shoulder 2+ Views Bilateral shoulder, 3 views. 05/30/2015 H OPID [place] Bilateral DX HISTORY: Arthritis. COMPARISON: Right shoulder radiography dated . RIGHT SHOULDER: No fracture or dislocation. No arthritic change is seen. Osseous and soft tissue structures appear normal. LEFT SHOULDER: No fracture or dislocation. No arthritic change is seen. Osseous and soft tissue structures appear normal. SL: 15 Spine lumbar 2 or 3 Lumbar spine, 3 views. 05/30/2015 OP ID [place] views DX HISTORY: Arthritis. COMPARISON: CT abdomen/pelvis dated 02/21/2014. FINDINGS: No fracture is seen. Vertebr al body heights are grossly maintained. No spondylolisthesis. 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 Congenital spina bifida occulta is noted at T11 and L5. SL: 15 Hand 3 views Bilateral hands, 3 views. 05/30/2015 [facility] D [place] Bilateral DX HISTORY: Arthritis. COMPARISON: Bilateral wrist radiography dated . RIGHT HAND: Normal bone mineral density. No soft tissue swelling. No joint space narrowing. No arthritic change is seen. LEFT HAND: Osseous and soft tissue stru ctures appear normal. No arthritic change or joint space narrowing. No soft tissue swelling. Normal alignment. SL: 15 Spine cervical 2 or 3 CERVICAL SPINE, 3 VIEWS 05/30/[facility] [place] [facility] DX HISTORY: Arthritis. COMPARISON: None available. FINDINGS: No fracture is seen. Vertebral body and disc spa ce heights maintained. Normal alignment. No prevertebral soft tissue sw elling. SL: 15 Pelvis w pelvis PELVIC ULTRASOUND: 02/21/2014 [facility] doppler US Transabdominal evaluation of the pelvis was done. The patient declined the transvaginal exam. The uterus is not visualized consistent with interval hysterectomy since the previous pelvic ultrasound on 08/03/2007. No significant abnormality of the bladder is demonstrated. The right ovary is 3.6 x 2.0 x 1.3 cm in size. The left ovary is 5.4 x 4.2 x 2.6 cm in size. There is satisfactory color flow and arterial Doppler signal demonstrated in both ovaries, with a decrease in venous congestion in both a dnexal regions since the previous ultrasound. A 1.7 cm cyst in the right ovary is seen. There is no evidence of other cysts, masses or free fluid. IMPRESSION: 1. No evidence of ovarian torsion. 2. Small right ovarian cyst. 3. No other significant ultrasound abnormalities in the pelvis. SL:13 Abdomen/Pelvis w IV CT ABDOMEN PELVIS WITH CONTRAST: 02/21/2014 [facility] contrast CT TECHNIQUE: Helical images were done with IV cont rast only. FINDINGS: The sigmoid colon is redundant. There is no significant diverticulosis or evidence of diverticulitis. The appendix is not visualized. The remainder of the GI tract is unremarkable. The uterus is absent. There is dilatation of the b oth ureters to the UVJs, left greater than right, without evidence of urinary tract calculus. This appears pre-existing, but slightly more prominent compared to the previous noncontrast CT on 02/01/2013 . There is normal enhancement of the kidneys and normal excretion of contrast into the collecting systems and ureters suggesting no significant obstruction. There is moderate urine in the bladder which is otherwise unremar kable. The liver, spleen, pancreas and adrenal glands show no significant abnormalities the gallbladder has been removed. There is no evidence of biliary dilatation. There is no other significant change from the pr evious exam. IMPRESSION: 1. No evidence of significant diverticular disea se. 2. Bilateral hydroureter, probably physiologic. 3. No other acute CT abnormalities in the abdome n or pelvis. SL:13 Shoulder series Examination: Right shoulder, 3 views 11/10/2013 [facility] History: Pain of unknown origin Comparison: None. Findings: Multiple views of the right shoulder show no acute bony fracture, joint dislocation, or suspicious osseous lesion. The soft tissues are unremarkable. IMPRESSION: No significant abnormality of the ri t shoulder. SL: 16 Chest 2 views Examination: Chest x-ray, 2 views 11/10/2013 [facility] History: Chest pain Comparison: None. Findings: The lungs are flex r and without focal consolidation. The cardiomediastinal silhouette is within normal limits. No pleural effusion or pneumothorax is seen. The osseous structures are without focal abnormality. IMPRESSION: No acute cardiopulmonary disease. SL: 16 Ext Upper Venous Right upper extremity venous Doppler ultrasound, November 09, 2013 09:02:00 PM 11/09/2013 [facility] [facility] Un[facility] US CLINICAL HISTORY: r/o DVT ; Pain, Limb TECHNIQUE: Real-time, graysc lorene and color Doppler sonographic examination was performed of the right upper extremity deep venous system. No previous study is available for comparison. FINDINGS: The interrogated right jugul ar, subclavian, axillary, brachial, and basilic veins, demonstrate normal compressibility and color-flow consistent with patency. Cephalic vein is not visualized. IMPRESSION: Negative for deep venous thrombosis of the right upper extremity. SL: 14 Abdomen/Pelvis wo 02/09/2013 [address] nd contrast CT REASON FOR EXAM: 724.5. COMPARISON: Reports of an ab domen ultrasound 09/24/2012 and pelvic ultrasound 08/03/2007 were reviewed. TECHNIQUE: Unenhanced axial helical CT images of the abdomen and pelvis were reviewed at 5 mm intervals. Reformatted coronal and sagittal images were also reviewed. Please note that lack of IV contrast limits evaluation of the solid organs and vasculature. Lack of oral contrast limits evaluation of the bowel. ABDOMEN / PELVIC CT FINDINGS: The visualized sussy g bases are remarkable for dependent subsegmental atelectasis. Normal heart size. The gallbladder is surgically absent. The kidneys are unremarkable . There is mild segmental dilatation of both ureters. There is no demonstrable renal or ureteral calculus. No hydronephrosis. The liver, pancreas, spleen and adrenal glands a re unremarkable. There is a nonobstructive randi wel gas pattern. Fluid is noted in nondistended segments of the small and large intestine in a nonspecific pattern. A small diverticulum is suspected involving the splenic fl exure without demonstrable a cute diverticulitis. The appendix is not seen. No free intraperitoneal air or ascites. The uterus is surgically abs ent. The partially distended urinary bladder is unremarkable. No demonstrable pelvic mass. The caliber of the abdominal aorta is within normal limits. There is no pathologic retroperitoneal lymphadenopathy. There is no significant abnormality of the subcu taneous soft tissues. There are incomplete fusion of the mid posterior bony elements at T12-L1, right posterior bony elements at L2 and the left posterior bony elements at L5-S1. There is likely partial bony fusion at L1-L2. The L1-L2 disc is hypoplast ic. The left iliac wing demonstrates a more AP orientation than noted on the right likely a developmental variation. IMPRESSION: 1. Post cholecystectomy and hysterectomy. 2. There is bilateral segmental ureterectasis. 3. No demonstrable urinary tract calculus. No hy dronephrosis. 4. Nonspecific nonobstructive bowel gas pattern. 5. Colonic diverticulum. 6. Osseous findings as described above. Please correlate clinically and consider follow- up imaging as indicated. Dictation code: 15 Consultation Notes No Data Provided for This Section Discharge Summaries No Data Provided for This Section History and Physicals No Data Provided for This Section Vital Signs Vital Sign Value Date Comments Source Diastolic (mm Hg) 125 02/21/[address] Systolic (mm Hg) 158 02/21/2014 [facility] Temperature Oral (F) 98.2 F 02/21/2014 [place] [facility] [facility] Rate 16 02/21/2014 [place] Systolic (mm Hg) 136 02/21/[place] [facility] Diastolic (mm Hg) 101 02/21/[address] Temperature Oral (F) 98.3 F 02/21/2014 [place] [facility] [facility] Rate 16 02/21/2014 [facility] Temperature Oral (F) 98.5 F 02/21/2014 [place] [facility] [facility] Rate 20 02/21/2014 [facility] Systolic (mm Hg) 151 02/21/2014 [place] Diastolic (mm Hg) 95 02/21/[address] Heart Rate 75 02/21/2014 [facility] Height 162.56 cm 02/21/2014 [facility] BMI Calculated 28.38 02/21/2014 [facility] Weight 75 02/21/2014 [facility] Heart Rate 87 11/11/2013 [facility] Temperature Oral (F) 98.1 F 11/11/2013 [place] [facility] [facility] Rate 21 11/11/2013 [facility] Systolic (mm Hg) 130 11/11/2013 [place] [facility] Diastolic (mm Hg) 94 11/11/[address] Systolic (mm Hg) 129 11/10/2013 [place] Diastolic (mm Hg) 86 11/10/[address] Heart Rate 74 11/10/2013 [facility] Respitory Rate 18 11/10/2013 [facility] Temperature Oral (F) 98.3 F 11/10/2013 [facility] [facility] Rate 18 11/10/2013 [facility] Diastolic (mm Hg) 86 11/10/[address] Systolic (mm Hg) 124 11/10/2013 [place] [facility] Heart Rate 76 11/10/2013 [facility] Temperature Oral (F) 98.0 F 11/10/2013 [facility] BMI Calculated 29.24 11/10/2013 [facility] Height 162.56 cm 11/10/2013 [facility] Weight 77.273 11/10/2013 [facility] Encounters Location Location Encounter Encounter Reason Attending ADM NH Stat us Source Details Type Number For Provider Date Date Visit OD [id number] 714.9 - JORY 10/21 Active O PID 0 INFLAMM MURO [place] [facility] [id number] SYMMETRI JORY 11/23 Active [place] 0 C MURO /2012 [facility] Inpatient [id number] Mendez 11/10 11/11 Gideon 8 Grant /2013 [facility] [place] [id number] [place] 02/21 02/21 [facility] 2 [facility] /2013 [facility] Outpatient [id number] YONY 02/20 [facility] Outpt Diag [id number] Chen 05/30 05/31 [facility] Out[facility] 4 [facility] [place] Outpatient [id number] AKUVI 05/27 Active [facility] 1 [place] [facility] Outpatient [id number] AKUVI 05/27 Active [facility] 2 EL Gideon [facility] Outpatient [id number] SAV 06/18 Active [facility] 3 RICHARD [facility] Outpt Diag [id number] Chen 09/12 09/13 [facility] 5 [facility] [place] Outpatient [id number] SAV 06/21 Active [facility] 4 RICHARD [facility] Ambulatory [id number] Sav 06/21 06/21 [facility] Primary Pre-Reg 4 [facility] Specialty [id number] 07/21 07/22 2.16.840 [place] [facility] .1.1138 8 Specialty 3.3.615 . Pharmacy [address] [facility] Outpatient [id number] HIGH JORY Cancel [place] [address] LIVER [facility] [place] [place] Procedures Procedure Code Date Perfomer Comments Source Appendectomy [id number] Medical Group,07.31.83 0.1..3. 615.135, MARSAHLL Meneses,[facility] [place] Cholecystectomy [id number] Medica l Group,07.31.83 [id number] 615.135, MARSHALL Meneses,[facility], [facility] [place] Hysterectomy [id number] Medical Group,07.31.83 [id number] 615.135, MARSHALL Meneses,[facility], MARSHALL Lina[place] Operative procedure [id number] [facility] dical on knee Group,2.16.84 [id number]. 615.135, MARSHALL Meneses,[facility], MARSHALL Linares Assessment and Plan No Data Provided for This Section Plan of Care No Data Provided for This Section Social History Social History Date Source Social History TypeResponse 11/10/2013 [id number] Alcohol Past Smoking Status Former smoker; Exposure to Tobacco Smoke None; Cigarette Smoking Last 365 Days No; Reg Smoking Cessation Counseling Yes entered on: 05/27/16 Social History TypeResponse 11/10/2013 [place] Fofana rougold Alcohol Past Smoking Status Former smoker; Exposure to Tobacco Smoke None; Cigarette Smoking Last 365 Days No; Reg Smoking Cessation Counseling Yes entered on: 05/27/16 Social History TypeResponse 11/10/2013 [facility] Alcohol Use: Past Smoking Status Former smoker, Exposure to Tobacco Smoke None, Cigarette Smoking Last 365 Days No, Reg Smoking Cessation Counseling Yes Social History TypeResponse 11/10/2013 MARSHALL sanchez Alcohol Past Smoking Status Former smoker; Exposure to Tobacco Smoke None; Cigarette Smoking Last 365 Days No; Reg Smoking Cessation Counseling Yes Social History TypeResponse 11/10/2013 [facility] romero Alcohol Past Smoking Status Former smoker; Exposure to Tobacco Smoke None; Cigarette Smoking Last 365 Days No; Reg Smoking Cessation Counseling Yes Family History No Data Provided for This Section Advance Directives No Data Provided for This Section Functional Status No Data Provided for This Section
--- OUTSIDE RECORDS SUMMARY | 2020-03-09 12:56 | XMS REPORT | Continuity of Care Document ---
:1975 Author Organization [facility] t Address [address] [place] [address] Care Team Providers Name Role Phone Kerrie Primary Care Physician Ever LUNDY Attending Clinician TAIWO Attending Clinician Unavailable HAROON Attending Clinician Unavailable Karen Aquino Attending Clinician EH Attending Clinician Unavailable Daja Hoang Attending Clinician JOSE Attending Clinician Unavailable ISI Attending Clinician Unavailable Kaleb Attending Clinician Narayan Burns Attending Clinician Narayan Burns Admitting Clinician Payers Payer Name Policy Type Policy Effective Date Expiration Date Sour ce Number AETNAAETNA [id number] [facility] Lissa CISNEROS/[id number] /16/2006-Present O Problems Condition Condition Condition Status Onset Resolution Last Treating Co mments Source Name Details Category Date Date Treatment Clinician Date L40.50 - Diagnosis Active 2014-062015-05-30 M emoria "ARTHROPAT 2-15 09:59:00 l HIC L40.50 - 00:01: Jac garcia PSORIASIS, "ARTHROPAT 00 UNSPEC HIC PSORIASIS, UNSPEC Active 05/29/2015 OPID Milagros Bradycardi Problem Active 2019-02-08 M emoria a 07-14 14:45:28 l (disorder) 00:00: Jac garcia Bradycardi 00 a (disorder) Active 07/14/2014 Problem 02/08/2019 Data migrated from [facility] on 11/11/14. Medical Group,[id number], MARSHALL Meneses, ADYAmy Linares Carpal Problem Active 2019-02-08 Memor ia tunnel - 14:45:28 l syndrome Carpal 00:00: Jac garcia (disorder) tunnel 00 syndrome (disorder) Active 07/14/2014 Problem 02/08/2019 Data migrated from [employer] on 11/11/14. Medical Group,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 Medical Group,[id number], MARSHALL Meneses, ADYAmy [place] Elevated Problem Active 2019-02-08 Mem oria blood-pres 7-03 14:45:28 l sure Elevated 00:00: Jac garcia reading blood-pres 00 without sure diagnosis reading of without hypertensi diagnosis on of (finding) hypertensi on (finding) Active 12/15/2013 Problem 02/08/2019 Data migrated from [employer] on 11/11/14. Medical Group,[id number], MARSHALL Meneses, MARSHALL Linares PSORIATIC Diagnosis Active 2013-11-14 Memoria ARTHRITIS 11-09 21:48:00 l FLARE 00:00: [place] PSORIATIC 00 ARTHRITIS FLARE Active 11/09/2013 [facility] CHEST PAIN Diagnosis Active 2013-11-10 Memoria 11-09 07:19:00 l CHEST 00:00: Gideon PAIN 00 Active 11/09/2013 [facility] ATYPICAL Diagnosis Active 2013-11-09 M emoria CHEST PAIN 11-09 19:48:00 l ATYPICAL 00:00: Jac n CHEST PAIN 00 Active 11/09/2013 [facility] Muscle Problem Active 2012-062019-02-08 Memor ia pain 07-17 14:45:28 l (finding) Muscle 00:00: Abigail nn pain 00 (finding) Active 05/16/2013 Problem 02/08/2019 Data migrated from [employer] on 11/11/14. Medical Group,[id number], MARSHALL Meneses,[facility] Hyperlipid Problem Active 2019-02-08 M emoria emia 02-09 14:45:28 l (disorder) 00:00: Jac n Hyperlipid 00 emia (disorder) Active 02/09/2013 Problem 02/08/2019 Data migrated from [employer] on 11/11/14. Medical Group,[id number], MAR[facility]ALL Meneses,[facility] [place] Peripheral Problem Active 2019-02-08 M emoria edema 6-06 14:45:28 l (disorder) 00:00: Jac n Peripheral 00 edema (disorder) Active 11/18/2012 Problem 02/08/2019 Data migrated from [employer] on 11/11/14. Medical Group,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 Medical Group,[id number], MARSHALL Meneses, ADYD [place] Anxiety Problem Active 2019-02-08 Michael shelli disorder 5-14 14:45:28 l (disorder) Anxiety 00:00: Her esparza disorder 00 (disorder) Active 10/26/2012 Problem 02/08/2019 Data migrated from [employer] on 11/11/14. Medical Group,[id number], MARSHALL Meneses, OPIAmy [place] Chronic Problem Active 2019-02-08 Michael shelli pain -14 14:45:28 l syndrome Chronic 00:00: Abigail nn (disorder) pain 00 syndrome (disorder) Active 10/26/2012 Problem 02/08/2019 Data migrated from [employer] on 11/11/14. Medical Group,[id number], MARSHALL Meneses, MARSHALL [place] Fatigue Problem Active 2019-02-08 Michael shelli (finding) - 14:45:28 l Fatigue 00:00: Gideon (finding) 00 Active 10/26/2012 Problem 02/08/2019 Data migrated from [employer] on 11/11/14. Medical Group,[id number], MARSHALL Meneses,[facility] [place] HIGH LIVER Diagnosis Active 2013-01-08 Memoria ENZYMES 10-04 15:38:00 l HIGH 00:00: Gideon LIVER 00 ENZYMES Active 10/04/2012 [facility] SYMMETRIC Diagnosis Active 2011-11-24 Memoria POLYARTICU 11-16 07:10:00 l LAR 00:00: Gideon INFLAMMATI SYMMETRIC 00 ON POLYARTICU LAR INFLAMMATI ON Active 2 [place] 714.9 - Diagnosis Active 2011-10-22 Me moria INFLAMM 10-19 09:45:00 l POLYART 714.9 - 00:01: Jac n INFLAMM 00 POLYART Active 10/20/2011 [facility] MARSHALL Linares History of History of Problem Resolve Univers Inflammato Inflammato d it y of ry ry [place] polyarthro polyarthro Ph ysici gloria gloria ans History of History of Problem Resolve Univers Rheumatoid Rheumatoid d it y of arthritis [place] Phys[place] Abnormal Abnormal Problem Active Unive rs levels of levels of ity of other other [place] serum serum Physici enzymes enzymes ans Cervicalgi Cervicalgi Problem Active U nivers a a ity of [place] Physici ans Lumbosacra Lumbosacra Problem Active U nivers l neuritis l neuritis it y of [place] Physici ans Elevation Elevation Problem Active Uni vers of level of level ity of of of [place] transamina transamina Ph ysici se and se and ans lactic lactic acid acid dehydrogen dehydrogen ase (LDH) ase (LDH) Vitamin D Vitamin D Problem Active Uni vers deficiency deficiency it y of [place] Physici ans Tear of Tear of Problem Active Univers medial medial ity of meniscus meniscus [place] of left of left Physici knee knee ans Lumbar Lumbar Problem Active Univers radiculopa radiculopa it y of thy thy [place] Physici ans Cervical Cervical Problem Active Unive rs radiculopa radiculopa it y of thy thy [place] Physici ans Insomnia Insomnia Problem Active Unive rs ity of [place] Physici ans Muscle Muscle Problem Active Univers spasm spasm ity of [place] Physici ans Nausea Nausea Problem Active Univers ity of [place] [facility]ici ans Acute Acute Problem Active Univers medial medial ity of meniscal meniscal [place] tear, tear, Physici left, left, ans initial initial encounter encounter Psoriasis Psoriasis Problem Active Uni vers ity of [place] Physici ans Psoriatic Psoriatic Problem Active Uni vers arthropath arthropath it y of y y [place] Physici ans Encounter Encounter Problem Active Uni vers for for ity of long[place]term [place]term [place] (current) (current) Phys ici use of use of ans medication medication s s Rash Rash Problem Active Univers ity of [place] Physici ans Migraines Migraines Problem Active Uni vers ity of [place] Physici ans Intractabl Intractabl Problem Active U nivers e chronic e chronic ity of migraine migraine [place] without without Physici aura and aura and ans without without status status migrainosu migrainosu s s Chronic Chronic Problem Active Univers bilateral bilateral ity of low back low back [place] pain with pain with Phys ici bilateral bilateral ans sciatica sciatica Numbness Numbness Problem Active Unive rs and and ity of tingling tingling [place] Physici ans Cyst of Problem Resolve 2019-02-08 Mem oria ovary d 14:45:28 l (disorder) Cyst of Her esparza ovary (disorder) Resolved Problem 02/08/2019 Medical Group,[id number], MARSHALL Meneses,[facility], OP[facility] [place] Ankylosing Problem Active 2019-02-08 M emoria spondyliti 14:45:28 l s Gideon (disorder) Ankylosing spondyliti s (disorder) Active Problem 02/08/2019 Medical Group,[id number], MARSHALL Meneses,[facility], [facility] PSORIATIC Diagnosis Active 2013-11-14 Memoria ARTHROPATH 21:48:00 l Y Gideon PSORIATIC ARTHROPATH Y Active [facility] CHEST PAIN Diagnosis Active 2013-11-10 Memoria NOS 07:19:00 l CHEST Gideon PAIN NOS Active [facility] Discharge Problem 2014-02-24 2014-02-24 Memoria Diagnosis: 02-21 02:44:22 02:44:22 l Cyst, 05:00: [place] ovarian Discharge 00 Diagnosis: Cyst, ovarian 02/21/2014 02/24/2014 [facility] Allergies, Adverse Reactions, Alerts Allergy Allergy Status Severity Reaction(s) Onset Inactive Treating Comm ents Source Name Type Date Date Clinician Hydromor Propensi Active GI 2018-0 [place] phone ty to Intolerance 6-20 Metho di adverse 00:00: st reaction 00 s to drug Methotre Propensi Active Rash [place] xate ty to 6-20 Methodi adverse 00:00: st reaction 00 s to drug Dilantin drug Active Univers CAPS allergy ity of [place] Physici ans Ultram drug Active Univers TABS allergy [place]y of [place] [facility]ici ans methotre drug Active Univers xate allergy ity of [place] [facility]ici ans Toradol Toradol Active Memoria l [place] Dilaudid Dilaudid Active Memori a florentino [place] Family History Family Member Diagnosis Comments Start Date Stop Date Source Mother Family history of Univers [facility] of [place] malignant neoplasm Physic ians of thyroid Father Family history of Univers [facility] [place] Graves' disease Physician s Social History Social Habit Start Date Stop Date Quantity Comments Source Sex Assigned At [facility] ethodist Tobacco use and 2019-05-04 2019-05-04 Never used [facility] ethodist exposure 00:00:00 00:00:00 Alcohol intake 2019-05-04 2019-05-04 Ex-drinker [facility] thodist 00:00:00 00:00:00 (finding) Social History 2013-11-10 2013-11-10 Lolita prado 04:07:22 04:07:22 Smoking Status Start Date Stop Date Source Current every day smoker [facility] Never smoker [place] [facility] t Medications Ordered Filled Start Stop Current Ordering Indication Dosage Frequency Signature Comments Components Source Medication Medication Date Date Medication? Clinician (SIG) Name Name secukinumab 2018-06 Yes 300mg Q14D Inject 300 [place] (COSENTYX) 1-20 mg under Metho di 150 mg/mL 14:22: the skin st syringe 44 every 14 (fourteen) days. trazodone 2018-06 Yes 1{tbl} QD Take 1 [place] HCl 1-20 tablet by Methodi (TRAZODONE 14:22: mouth st ORAL) 44 nightly. dexlansopra 2018-06 Yes 60mg QD Take 60 mg Wilson zole 1-20 by mouth Methodi (DEXILANT) 14:22: daily. st 60 mg 44 capsule ipratropium 2018-06 Yes ipratropiu [place] (ATROVENT) 1-20 m bromide Meth edgar 0.03 % 14:22: 0.03 % st nasal spray 44 nasal spray methocarbam 2018-06 Yes methocarba [place] ol 1-20 mol 500 mg Methodi (ROBAXIN) 14:22: tablet st 500 MG 44 tablet LORAZepam 2018-06 Yes lorazepam Adelina ston (ATIVAN) 1 1-20 1 mg Methodi MG tablet 14:22: tablet st 44 methotrexat 2018-06 Yes methotrexa [place]andy e 2.5 MG 1-20 te sodium Method i tablet 14:22: 2.[address] 44 tablet naloxegol 2018-06 Yes Movantik [place] (MOVANTIK) 1-20 25 mg Methodi 25 mg 14:22: tablet st tablet 44 tablet omeprazole 2018-06 Yes omeprazole [place] (PriLOSEC) 1-20 40 mg Methodi 40 MG 14:22: capsule,de st capsule 44 layed release predniSONE 2018-06 Yes prednisone [place] (DELTASONE) 1-20 10 mg Methodi 10 mg 14:22: tablet st tablet 44 promethazin 2018-06 Yes promethazi Wilson e 1-20 ne 25 mg Methodi (PHENERGAN) 14:22: tablet st 25 MG 44 tablet temazepam 2018-06 Yes temazepam Adelina ston (RESTORIL) 1-20 15 mg Methodi 15 mg 14:22: capsule st capsule 44 triazolam 2018-06 Yes triazolam Adelina ston (HALCION) 1-20 0.25 mg Methodi 0.25 MG 14:22: tablet st tablet 44 methylPREDN 2018-06 2019- No follow Adelina ston ISolone 1-20 11-25 package Methodi (MEDROL, 00:00: 23:[address] NILSA,) 4 mg 00 :00 tablet hydrOXYzine 2018-06 Yes 50mg Q6H Take 50 mg Wilson (ATARAX) 50 1-05 by mouth Meth edgar MG tablet 00:00: Every 6 st 00 hours while awake as needed (RT). morphine 2018- Yes Q12H every 12 [place] (MORPHABOND 8-29 (twelve) Meth edgar ER) 15 mg 00:00: hours. st tablet,oral 00 only,ext.re l.12 hr lubiproston 2018- Yes AMITIZA 24 Wilson e (AMITIZA) 8-16 MCG CAPS Meth edgar 24 MCG 00:00: st capsule 00 leflunomide 2018- Yes 1 (one) Adelina ston (ARAVA) 20 8-16 time each Meth edgar MG tablet 00:00: day at the st 00 same time. estradiol 2019- Yes Steve (VIVELLE-DO 6-06 Methodi T) 0.1 00:00: st mg/24 hr 00 gabapentin 2018- Yes 300mg Q.25D Take 300 [place] (NEURONTIN) 6-03 mg by Methodi 300 mg 00:00: mouth 4 st capsule 00 (four) times a day. celecoxib 2018- Yes Steve (CeleBREX) 5-26 Methodi 200 MG 00:00: st capsule 00 Magnesium Magnesium 2018- Yes ENRRIQUE 1 QD TAKE 1 Univers Gluconate Gluconate 5-15 BROWN M.D. TABLET ity of 500 MG Oral 500 MG Oral 00:00: DAILY. [place] Tablet Tablet 00 Physici ans Leflunomide Leflunomide Yes CHEN 1 QD TAKE 1 Univers 20 MG Oral 20 MG Oral 2-28 HOANG TABLET ity of Tablet Tablet 00:00: M.D. DAILY [place] 00 Physici ans predniSONE predniSONE Yes CHEN TAKE 1 Univers 10 MG Oral 10 MG Oral 2-28 HOANG TABLET BY ity of Tablet Tablet 00:00: M.D. MOUTH [place] 00 DAILY Physici ans Gabapentin Gabapentin 2016-06 Yes CHEN TAKE 1 Univers 300 MG Oral 300 MG Oral 0-11 HOANG CAPSULE AT ity of Capsule Capsule 00:00: M.D. BEDTIME. [place] as 00 Physici ans Promethazin Promethazin Yes CHEN Q6H TAKE ONE Univers e HCl - 25 e HCl - 25 4-27 HOANG TABLET BY ity of MG Oral MG Oral 00:00: M.D. MOUTH [place] Tablet Tablet 00 EVERY 6 Physici HOURS ans NEEDED FOR NAUSEA Cane Cane Yes CHEN Please Univers 3-07 HOANG give a 4 ity of 00:00: M.D. point cane [place] 00 and to use Physici as ans directed. Cosentyx Cosentyx Yes CHEN 300 mg SC Univers Sensoready Sensoready 3-17 HOANG q4 weeks. ity of 300 Dose 300 Dose 00:00: M.D. [place] 150 MG/ML 150 MG/ML 00 Physi ci Subcutaneou Subcutaneou a ns s Solution s Solution Auto-inject Auto-inject or or HYDROcodone 2014-06 Yes [place] -acetaminop 1-24 Methodi hen (NORCO) 00:00: st 10-325 mg 00 per tablet Celecoxib Celecoxib Yes CHEN TAKE ONE Univers 200 MG Oral 200 MG Oral 1-13 HOANG CAPSULE BY ity of Capsule Capsule 00:00: M.D. MOUTH [place] 00 TWICE A Physici DAY ans NEEDED Acetaminoph Yes 1 - 2 tab, Memoria en 300 MG / 9-09 PO, Q4H, l Codeine 17:09: Pain, # 20 Herm nick Phosphate 00 tab, 0 30 MG Oral Refill(s) Tablet [Tylenol with Codeine #3] Ondansetron 2014-0 Yes 8 mg = 1 Me moria 8 MG Oral 02-21 tab, PO, l Tablet 17:09: TID, # 10 Jac n [Zofran] 00 tab, 0 Refill(s) Ondansetron 2013-0 No 4 mg, Memor ia 02-21 Route: l 16:45: IVP, Drug Gideon 00 form: INJ, ONCE, Dosing Weight 75, kg, Priority: STAT, Start date: 02/21/14 11:45:00, Stop date: 02/21/14 11:45:00 Acetaminoph 2013-0 No 1 tab, Michael shelli en 325 MG / 02-21 Route: PO, l Hydrocodone 16:45: Dosing Herm nick Bitartrate 00 Weight 75, 5 MG Oral kg, ONCE, Tablet STAT, Start date: 02/21/14 11:45:00, Stop date: 02/21/14 11:45:00 Morphine 2013-0 No 4 mg, Memoria 02-21 Route: l 15:11: IVP, Drug [place] 00 form: INJ, ONCE, Dosing Weight 75, kg, Priority: STAT, Start date: 02/21/14 10:11:00, Stop date: 02/21/14 10:11:00 Morphine 2013-0 No 4 mg, Memoria 02-21 Route: l 14:00: IVP, Drug Gideon 00 form: INJ, ONCE, Dosing Weight 75, kg, Priority: STAT, Start date: 02/21/14 9:00:00, Stop date: 02/21/14 9:00:00 Zofran 2013-0 No 4 mg, Memoria 02-21 Route: l 13:52: IVP, Drug Gideon 00 form: INJ, ONCE, Dosing Weight 75, kg, Priority: STAT, Start date: 02/21/14 8:52:00, Stop date: 02/21/14 8:52:00 Sodium 2013-0 No 1,000 mL, Memori a Chloride 02-21 1,000 l 0.154 13:52: ml/hr, Gideon MEQ/ML 00 Infuse Injectable Over: 1 Solution hr, Route: IV, ONCE, Priority: STAT, Dosing Weight 75 kg, Start date: 02/21/14 8:52:00, Duration: 1 doses or times, Stop date: 02/21/14 8:52:00 Lyrica No Notes: Memoria 5-30 (Same as: l 02:00: Lyrica) traZODone traZODone Yes CHEN 1 TAKE 1 Univers HCl - 150 HCl - 150 5-30 HOANG TABLET AT ity of MG Oral MG Oral 00:00: M.D. BEDTIME. [place] as Tablet Tablet 00 Physici ans Methylpredn No Notes: Michael shelli isolone 5-29 (Same l 21:00: as:Solu-ME DROL, A-Methapre d) Demerol HCl No Notes: Michael shelli 5-29 (Same As: l 19:36: Demerol) Flexeril No Notes: Memoria 5-29 (Same As: l 18:54: Flexeril) Zanaflex No Notes: Memoria 5-29 (Same As: l 14:00: Zanaflex) Celebrex No Notes: Memoria 5-29 NSAID. l 14:00: Please check indication . Not for seizure. (Same As: CeleBREX) Enoxaparin No Notes: Memor ia 5-29 (Same as: l 14:00: Lovenox) Demerol HCl No Notes: Michael shelli 5-29 (Same As: l 13:25: Demerol) Acetaminoph No Notes: Do M emoria en 325 MG / 5-29 not exceed l Hydrocodone 13:24: 4gm/day of artrate acetaminop 10 MG Oral hen. Tablet (Same as: Lewis 325/10) Zanaflex Yes 4 mg, PO, Michael shelli 5-29 BID, 0 l 05:46: Refill(s) Celebrex Yes Daily, 0 Memor ia 5-29 Refill(s) l 05:46: Acetaminoph Yes 1 tab, PO, Memoria en 325 MG / 5-29 Q6H, as l Hydrocodone 05:46: needed for [place] Bitartrate 00 pain, 0 10 MG Oral Refill(s) Tablet Methotrexat Yes 17.5 mg, Me moria e 5-29 PO, qWeek, l 05:46: 0 Gideon 00 Refill(s) nitroglycer No Notes: Michael shelli in 0.4 mg 5-29 (Same l sublingual 01:46: as:Nitroqu H ermann tablet 00 ick, Nitrostat) "Do Not Crush" Sublingual tablet atropine No 0.5 mg, 5 Michael shelli 5-29 mL, Route: l 01:46: IVP, Drug form: INJ, PRN, PRN Bradycardi a, Start date: 11/09/13 20:46:00, Duration: 30 day, Stop date: 12/09/13 20:45:00 Ambien No Notes: Memoria 5-29 (Same As: l 01:31: Ambien) [place] 00 Morphine No Notes: Memoria 5-29 (Same l 01:31: as:MORPhin [place] 00 e Sulfate) tiZANidine tiZANidine Yes CHEN 1 Q0.3333D TAKE 1 Univers HCl - 4 MG HCl - 4 MG 7-18 HOANG TABLET 3 ity of Oral Tablet Oral Tablet 00:00: M.D. TIMES [place] 00 DAILY Physici ans [place] TABS [place] TABS Yes Uni vers ity of [place] Physici ans Dexilant 30 Dexilant 30 Yes QD TAKE 1 Univers MG Oral MG Oral CAPSULE ity of Capsule Capsule DAILY [place] Delayed Delayed EVERY Physici Release Release MORNING ans BEFORE BREAKFAST. Topiramate Topiramate Yes ENRRIQUE Take 1 Univers 25 MG Oral 25 MG Oral BROWN M.D. 25mg ity of Tablet Tablet tablet po [place] qhs x1 wk, Physici then 25mg ans BID x1 wk, then take 1 25 mg tablet po QAM & 50 mg QPM, then 50 mg BID Immunizations Ordered Filled Immunization Date Status Comments Sourc e Immunization Name Name PPD 2014-04-11 Completed [facility] 00:00:00 [place] [facility] PPD 2013-03-31 Completed [facility] 00:00:00 [place] [facility] ns PPD 2012-02-25 Completed [facility] 00:00:00 [place] Physicia ns Vital Signs Vital Name Observation Time Observation Value Comments Source BP Systolic 2018-08-12 129 mm[Hg] Location: [facility] 10:54:00 Position: [place] Physician s Sitting BP Diastolic 2018-08-12 97 mm[Hg] Location: [facility] 10:54:00 Position: [place] Physician s Sitting Height 2018-08-12 64 [in_us] [facility] 10:54:00 [place] Physician s Weight 2018-08-12 161.125 [lb_av] University o 10:54:00 [place] Physician s Body Mass Index 2018-08-12 27.66 kg/m2 University o Calculated 10:54:00 [place] Physician s Heart Rate 2018-08-12 99 /min Location: R [facility] 10:54:00 Radial; [place] Physician s BP Systolic 2017-11-25 135 mm[Hg] Location: [facility]; [facility] 11:34:00 Position: [place] Physician s Sitting BP Diastolic 2017-11-25 94 mm[Hg] Location: [facility] 11:34:00 Position: [place] Physician s Sitting Height 2017-11-25 64 [in_us] [facility] 11:34:00 [place] Physician s Weight 2017-11-25 161.4 [lb_av] [facility] 11:34:00 [place] Physician s Body Mass Index 2017-11-25 27.7 kg/m2 University o Calculated 11:34:00 [place] Physician s Heart Rate 2017-11-25 86 /min Location: R [facility] 11:34:00 Carotid; [place] Physician s Diastolic (mm Hg) 2014-02-21 [facility] Alanna ermann 17:21:00 Systolic (mm Hg) 2014-02-21 [facility] Jaleel rmann 17:21:00 Temperature Oral 2014-02-21 98.2 F [facility] Jaleel rmann (F) 17:21:00 Respitory Rate 2014-02-21 [facility] 17:21:00 Systolic (mm Hg) 2014-02-21 [facility] Jaleel rmann 15:50:00 Diastolic (mm Hg) 2014-02-21 [facility] H ermann 15:50:00 Temperature Oral 2014-02-21 98.3 F [facility] Jaleel rmann (F) 15:50:00 Respitory Rate 2014-02-21 [facility] Herm nick 15:50:00 Temperature Oral 2014-02-21 98.5 F [facility] Jaleel rmann (F) 13:44:00 Respitory Rate 2014-02-21 [facility] 13:44:00 Systolic (mm Hg) 2014-02-21 [facility] r[facility] 13:44:00 Diastolic (mm Hg) 2014-02-21 [facility] H ermann 13:44:00 Heart Rate 2014-02-21 [facility] n 13:44:00 Height 2014-02-21 162.56 cm [facility] n 13:44:00 BMI Calculated 2014-02-21 [facility] 13:44:00 Weight 2014-02-21 [facility] n 13:44:00 Heart Rate 2013-11-11 [facility] Jac n 00:48:00 Temperature Oral 2013-11-11 98.1 F [facility] (F) 00:48:00 Respitory Rate 2013-11-11 [facility] 00:48:00 Systolic (mm Hg) 2013-11-11 [facility] 00:48:00 Diastolic (mm Hg) 2013-11-11 [facility] H ermann 00:48:00 Systolic (mm Hg) 2013-11-10 [facility] 21:00:00 Diastolic (mm Hg) 2013-11-10 [facility] ermann 21:00:00 Heart Rate 2013-11-10 [facility] Jac n 21:00:00 Respitory Rate 2013-11-10 [facility] 21:00:00 Temperature Oral 2013-11-10 98.3 F [facility] rmann (F) 21:00:00 Respitory Rate 2013-11-10 [facility] 17:00:00 Diastolic (mm Hg) 2013-11-10 [facility] H ermann 17:00:00 Systolic (mm Hg) 2013-11-10 [facility] r[facility] 17:00:00 Heart Rate 2013-11-10 Memorial Jac n 17:00:00 Temperature Oral 2013-11-10 98.0 F [facility] He rmann (F) 17:00:00 BMI Calculated 2013-11-10 [facility] 01:17:00 Height 2013-11-10 162.56 cm [facility] Jac n 01:17:00 Weight 2013-11-10 [facility] 01:17:00 Procedures Procedure Date / Time Performing Clinician Source Performed MRI CERVICAL SPINE WO 2019-05-26 14:28:33 [facility] CONTRAST MRI SHOULDER WO CONTRAST 2019-04-27 14:14:49 [facility] LEFT XR SHOULDER 2+ VW LEFT 2019-04-20 13:22:06 Jason Curtis on [facility] [[facility]] EMG 2018-10-27 00:00:00 [facility] Physicians [QLH] CBC (INCLUDES 2018-06-17 00:00:00 Universi ty [facility] DIFF/PLT) Physicians [QLH] CMP W/EGFR 2018-06-17 00:00:00 [facility] Physicians [QL] C-REACTIVE PROTEIN 2018-06-17 00:00:00 [facility] Physicians [QLH] SED RATE BY MODIFIED 2018-06-17 00:00[facility] QUANTIFERON(R)-TB 2018-06-17 00:00[facility]QLH[facility] CBC (INCLUDES 2017-11-25 00:00:00 Universi ty [facility] DIFF/PLT) Physicians [QLH] CMP W/EGFR 2017-11-25 00:00:00 [facility] Physicians [QL] C-REACTIVE PROTEIN 2017-11-25 00:00:00 [facility] [[facility]] SED RATE BY MODIFIED 2017-11-25 00:00:00 [facility] C-REACTIVE PROTEIN 2017-10-27 00:00:00 Uni [facility]icians [[facility]] CBC (INCLUDES 2017-10-27 00:00:00 [facility] ty [facility] DIFF/PLT) Physicians [QLH] CMP W/EGFR 2017-10-27 00:00:00 [facility]icians [[facility]] SED RATE BY MODIFIED 2017-10-27 00:00:00 [facility] [facility] Hysterectomy [facility] Physicians History of Gallbladder [facility] surgery Physicians History of Appendectomy [facility] Physicians History of Knee Surgery [facility] Physicians History of Ankle surgery [facility] Physicians Appendectomy [facility] Hysterectomy [facility] Operative procedure on [facility] knee Plan of Care Planned Activity Planned Date Details Comments Source Future Scheduled 2020-01-14 INFLUENZA VACCINE [employer] Test 00:00:00 [code = INFLUENZA VACCINE] Diagnostic Test 2018-10-27 [UTP] EMG [code = [facility] [place] Pending 00:00:00 [UTP] EMG] Physicians Diagnostic Test 2018-10-27 [UTP] EMG [code = [facility] Pending 00:00:00 [UTP] EMG] Physicians Future Scheduled 1995 Screening for [facility] Test 00:00:00 malignant neoplasm of cervix (procedure) [code = 457156391] Encounters Start End Encounter Admission Attending Care Care Encounter Source Date/Time Date/Time Type Type Clinicians Facility Department ID 2018-10-27 2018-10-27 BEAU Keyes Neurology [id number] Univers 13:00:00 13:00:00 t; ENRRIQUE MARAVILLA [facility] of [place], M.D. [place] M.D. Physici ans 2018-08-12 2018-08-12 BEAU Castro Rheumatolog [id number] Univers 10:30:00 10:30:00 t; CHEN HOANG y ity of [place], M.D. [place] M.D. Physici ans 2018-08-12 2018-08-12 BEAU Castro [id number] Univers 09:30:00 09:30:00 t; CHEN HOANG [facility]y of [place], M.D. [place] M.D. Physici ans 2018-07-21 2018-07-22 Outpatient [id number] 09:16:00 09:16:00 [id number] 2018-06-21 2018-06-21 Outpatient Miles [facility] [id number] 11:30:00 11:30:00 Sav 04 Karen 2017-11-25 2017-11-25 BEAU Castro Rheumatolog [id number] Univers 10:30:00 10:30:00 t; CHEN HOANG y ity of [place], M.D. [place] M.D. Physici ans 2017-10-28 2017-10-28 BEAU Luna Rheumatolog [id number] Univers 15:00:00 15:00:00 t; AUTUMN STAUFFER y ity o f FILEMON, M.D. [place] M.D. Physici ans 2017-10-28 2017-10-28 Appointbill HOANG, BEAU UTP [id number] Univers 11:00:00 11:00:00 t; HOANGCHEN BARBA, ity of [facility].D. Physici ans 2017-06-24 2017-06-24 Appointbill HOANG, BEAU UTP [id number] Univers 09:00:00 09:00:00 t; HOANGCHEN BARBA ity of [facility].D. Physici ans 2017-03-25 2017-03-25 Appointbill HOANG, BEAU UTP [id number] Univers 09:30:00 09:30:00 t; HOANGCHEN BARBA, ity of [facility].D. Physici ans 2016-12-10 2016-12-10 Alicia HOANG, BEAU UTP [id number] Univers 09:30:00 09:30:00 t; HOANGCHEN BARBA, ity of [facility].D. Physici ans 2016-11-19 2016-11-19 Alicia HOANG, BEAU UTP [id number] Univers 15:30:00 15:30:00 t; HOANGCHEN BARBA, ity of [facility].D. Physici ans 2016-09-12 2016-09-12 [facility] [id number] 12:22:00 23:59:00 Chen Daja 05 2016-08-19 2016-08-19 Alicia HOANG, BEAU UTP [id number] Univers 09:30:00 09:30:00 t; HOANGCHEN BARBA ity of [facility].D. Physici ans 2016-08-04 2016-08-04 Alicia GARCIA, BEAU UTP [id number] Univers 08:00:00 08:00:00 t; MAIA GARCIA ity chai CARVALHO M.D. [facility].D. Physici ans 2016-04-22 2016-04-22 Appointbill HOANG, BEAU UTP [id number] Univers 08:30:00 08:30:00 t; CHEN HOANG ity of [place], M.D. [place] M.D. Physici ans 2016-01-10 2016-01-10 Appointmen ISIBEAU AHN UTP [id number] Univers 11:30:00 11:30:00 t; Jh LO [place], [place] Jh LO Physi ci ans 2015-12-20 2015-12-20 Appointmen BEAU SNOWDEN UTP [id number] Univers 14:00:00 14:00:00 t; Jh LO [place], [place] Jh LO Physi ci ans 2015-11-28 2015-11-28 Appointmen BEAU HOANG [facility] [id number] Univers 09:30:00 09:30:00 t; CHEN OHANG ity of [place], M.D. [place] M.D. Physici ans 2015-05-30 2015-05-30 Outpatient NINA Hoang [facility] [id number] 09:50:00 23:59:00 Chen Farnsworth 04 2014-02-21 2014-02-21 Outpatient AMOR Manuel [facility] [id number] 08:42:00 12:39:00 Mayura 02 2013-11-10 2013-11-10 Outpatient AMOR Burns [id number] 08:27:00 23:35:[address] [place] [address] Results Test Description Test Time Test Comments Results Result [facility] e Comments MRI Cervical 2019-05-15 [facility] Spine Wo [address] Contrast 14:47:33 05/26/2019 2:50 PM CSTEXAMINATION: MRI CERVICAL SPINE WO CONTRASTCLINICAL HISTORY: M54.12 Radiculopathy cervical region, Neck pain chronic normal neuro exam neg xrayCOMPARISON: NoneTECHNIQUE: Multiplanar multisequence noncontrast enhanced examination was performed of the cervical spine.FINDINGS: Vertebral body heights are maintained. The cervicomedullary junction is unremarkable. No cord signal abnormality identified. No focal marrow lesions. No masses are present in the visualized prevertebral soft tissues.Cervical alignment is preserved with normal lordosis. There is no significant spondylolisthesis. Axial images through the disc spaces demonstrate the following:C1-C2: There is narrowing of the atlantoaxial interval with spurring. There is no significant stenosis.C2-C3: No significant posterior disc disease, spinal canal or neural foraminal stenosis.C3-C4: No significant posterior disc disease, spinal canal or neural foraminal stenosis.C4-C5: There is minimal posterior spondylosis. There is no stenosis. There is mild disc desiccation.C5-C6: There is mild disc desiccation and posterior spondylosis without stenosis. The foramina are patent.C6-C7: No significant posterior disc disease, spinal canal or neural foraminal stenosis.C7-T1: No significant posterior disc disease, spinal canal or neural foraminal stenosis.No significant posterior disc disease, spinal canal or neural foraminal stenosis at other visualized levels.IMPRESSION: There is minimal spondylosis at C4-5 and C5-6 with disc desiccation and minimal bulges without stenosis.[facility]-[id number] YZB [[facility]] CMP W/EGFR 2018-07-06 15:39:00 Test Item Value Reference Range Interpretation Comme nts GLUCOSE; Normal (test code = 124 mg/dl 65-139 N Non-fasting reference 1547-9) interval UREA NITROGEN (BUN) (test 14 mg/dl 7-25 N code = UREA NITROGEN (BUN)) CREATININE (test code = 0.67 mg/dl 0.50-1.10 N CREATININE) eGFR NON- 107 {ML/MIN/1.7} > OR = 60 N (test code = eGFR NON-) eGFR (test 124 {ML/MIN/1.7} > OR = 60 N code = eGFR ) BUN/CREATININE RATIO (test NOT APPLICABLE 12-04 code = BUN/CREATININE RATIO) SODIUM (test code = SODIUM) 138 mmol/L 135-146 N POTASSIUM (test code = 3.7 mmol/L 3.5-5.3 N POTASSIUM) CHLORIDE (test code = 104 mmol/L 98-110 N CHLORIDE) CARBON DIOXIDE (test code = 26 mmol/L 20-32 N CARBON DIOXIDE) CALCIUM (test code = 8.3 mg/dl 8.6-10.2 CALCIUM) PROTEIN, TOTAL (test code = 6.1 g/dl 6.1-8.1 N PROTEIN, TOTAL) ALBUMIN (test code = 3.9 g/dl 3.6-5.1 N ALBUMIN) GLOBULIN (test code = 2.2 {G/DL CALC} 1.9-3.7 N GLOBULIN) ALBUMIN/GLOBULIN RATIO (test 1.8 {CALC} 1.0-2.5 N code = ALBUMIN/GLOBULIN RATIO) BILIRUBIN, TOTAL; Normal 0.2 mg/dl 0.2-1.2 N (test code = 54134-7) ALKALINE PHSPHATASE (test 94 u/l 33-115 N code = ALKALINE PHSPHATASE) AST; Normal (test code = 11 u/l 10-30 N 1916-6) ALT; Normal (test code = 8 u/l 6-29 N 1742-6) [facility]] SED RATE BY MODIFIED [id number] 15:39:00 Test Item Value Reference Range Interpretation Comments SED RATE BY MODIFIED WESTERGREN (test 6 mm/h < OR = 20 N code = SED RATE BY MODIFIED WESTERGREN) [facility]] CBC (INCLUDES DIFF/PLT)2018-07-06 15:39:00 Test Item Value Reference Range Interpretation Comments WHITE BLOOD CELL COUNT 5.1 {Thousand/u} 3.8-10.8 N (test code = WHITE BLOOD CELL COUNT) RED BLOOD CELL COUNT (test 3.37 {Million/uL} 3.80-5.10 code = RED BLOOD CELL COUNT) HEMAGLOBIN; Below Low 10.8 g/dl 11.7-15.5 Threshold (test code = 27509-1) HEMATOCRIT; Below Low 31.4 % 35.0-45.0 Threshold (test code = 4544-3) MCV; Normal (test code = 93.2 fL 80.0-100.0 N 787-2) MCHC; Normal (test code = 34.4 g/dl 32.0-36.0 N 62139-8) RDW; Normal (test code = 13.9 % 11.0-15.0 N 788-0) PLATELET COUNT; Below Low 109 {Thousand/u} 140-400 Threshold (test code = 777-3) MPV; Normal (test code = 11.5 fL 7.5-12.5 N 22376-9) ABSOLUTE NEUTROPHILS (test 3203 {cells/uL} 0445-9096 N code = ABSOLUTE NEUTROPHILS) ABSOLUTE LYMPHOCYTES (test 1535 {cells/uL} 850-3900 N code = ABSOLUTE LYMPHOCYTES) ABSOLUTE MONOCYTES (test 291 {cells/uL} 200-950 N code = ABSOLUTE MONOCYTES) ABSOLUTE EOSINOPHILS (test 61 {cells/uL} 15-500 N code = ABSOLUTE EOSINOPHILS) ABSOLUTE BASOPHILS (test 10 {cells/uL} 0-200 N code = ABSOLUTE BASOPHILS) NEUTROPHILS (test code = 62.8 % N NEUTROPHILS) LYMPHOCYTES (test code = 30.1 % N LYMPHOCYTES) MONOCYTES; Normal (test 5.7 % N code = 81445-2) EOSINOPHILS; Normal (test 1.2 % N code = 06999-6) BASOPHILS; Normal (test 0.2 % N code = 03944-7) [facility]] C-REACTIVE [id number] 15:39:00 Test Item Value Reference Range Interpretation Comments C-REACTIVE PROTEIN (test code = 5.4 mg/L <8.0 N C-REACTIVE PROTEIN) [facility][Q] QUANTIFERON( R)-TB GOLD PLUS, 1 [id number] 15:39:00 Test Item Value Reference Range Interpretation Comments QUANTIFERON( NEGATIVE NEGATIVE N Negative test r esult. M. R)-TB GOLD tuberculosis co mplex PLUS, 1 TUBE infection unlik nick. (test code = QUANTIFERON( R)-TB GOLD PLUS, 1 TUBE) NIL (test code 0.07 {IU/ml} N = NIL) MITOGEN-NIL >10.00 N (test code = MITOGEN-NIL) TB1-NIL (test <0.00 N code = TB1-NIL) TB2-NIL (test 0.01 {IU/ml} N The Nil tube v alue reflects code = the background TB2-NIL) interferongamma immune response of the patient's blood sample.Th is value has been subtracted from the patient'sdispla yed TB and Mitogen results . Lower than expected result s with the Mitogen tubepre vent false-negative Quantiferon readings bydete cting a patient with a potential immunesuppressi ve condition and/or suboptim al pre-analyticals pecimen handling. The T B1 Antigen tube is coated with theM. tuberculosis-sp ecific antigens design ed to elicitresponses from TB antigen primed CD4+ helperT-lymphoc ytes. The TB2 Antigen tub e is coated with theM. tuberculosis-sp ecific antigens design ed to elicitresponses from TB antigen primed CD4+ helper and CD8+cytotox ic T-lymphocytes. For additional info rmation, please refer [email or web address] ion.[employer]/fa q/204(This link is being p rovided for informational/e ducational purposes only.) [facility]] CMP [id number] 11:59:00 Test Item Value Reference Range Interpretation Comments GLUCOSE; Normal 97 mg/dl 65-139 N Non-fasting (test code = reference inter quita 1547-9) UREA NITROGEN (BUN) 19 mg/dl 7-25 N (test code = UREA NITROGEN (BUN)) CREATININE (test 0.63 mg/dl 0.50-1.10 N code = CREATININE) eGFR NON- 110 {ML/MIN/1.7} > OR = 60 N FAROESE (test code = eGFR NON-) eGFR 127 {ML/MIN/1.7} > OR = 60 N FAROESE (test code = eGFR ) BUN/CREATININE NOT APPLICABLE 6-22 RATIO (test code = BUN/CREATININE RATIO) SODIUM (test code = 136 mmol/L 135-146 N SODIUM) POTASSIUM (test 3.8 mmol/L 3.5-5.3 N code = POTASSIUM) CHLORIDE (test code 102 mmol/L 98-110 N = CHLORIDE) CARBON DIOXIDE 28 mmol/L 20-31 N (test code = CARBON DIOXIDE) CALCIUM (test code 8.9 mg/dl 8.6-10.2 N = CALCIUM) PROTEIN, TOTAL 7.2 g/dl 6.1-8.1 N (test code = PROTEIN, TOTAL) ALBUMIN (test code 4.2 g/dl 3.6-5.1 N = ALBUMIN) GLOBULIN (test code 3.0 {G/DL CALC} 1.9-3.7 N = GLOBULIN) ALBUMIN/GLOBULIN 1.4 {CALC} 1.0-2.5 N RATIO (test code = ALBUMIN/GLOBULIN RATIO) BILIRUBIN, TOTAL; 0.5 mg/dl 0.2-1.2 N Normal (test code = 33355-7) ALKALINE PHSPHATASE 79 u/l 33-115 N (test code = ALKALINE PHSPHATASE) AST; Normal (test 19 u/l 10-30 N code = 1916-6) ALT; Normal (test 18 u/l 6-29 N code = 1742-6) [facility]] SED RATE BY MODIFIED [id number] 11:59:00 Test Item Value Reference Range Interpretation Comments SED RATE BY MODIFIED WESTERGREN (test 19 mm/h < OR = 20 N code = SED RATE BY MODIFIED WESTERGREN) [facility]] CBC (INCLUDES DIFF/PLT)2017-11-25 11:59:00 Test Item Value Reference Range Interpretation Comments WHITE BLOOD CELL COUNT 5.8 {Thousand/u} 3.8-10.8 N (test code = WHITE BLOOD CELL COUNT) RED BLOOD CELL COUNT (test 3.90 {Million/uL} 3.80-5.10 N code = RED BLOOD CELL COUNT) HEMOGLOBIN; Normal (test 12.0 g/dl 11.7-15.5 N code = 54618-1) HEMATOCRIT; Normal (test 35.4 % 35.0-45.0 N code = 4544-3) MCV; Normal (test code = 90.8 fL 80.0-100.0 N 787-2) MCHC; Normal (test code = 33.9 g/dl 32.0-36.0 N 35228-3) RDW; Normal (test code = 14.5 % 11.0-15.0 N 788-0) PLATELET COUNT; Normal 250 {Thousand/u} 140-400 N (test code = 777-3) MPV; Normal (test code = 10.7 fL 7.5-12.5 N 52075-6) ABSOLUTE NEUTROPHILS (test 3747 {cells/uL} 9877-8705 N code = ABSOLUTE NEUTROPHILS) ABSOLUTE LYMPHOCYTES (test 1479 {cells/uL} 850-3900 N code = ABSOLUTE LYMPHOCYTES) ABSOLUTE MONOCYTES (test 476 {cells/uL} 200-950 N code = ABSOLUTE MONOCYTES) ABSOLUTE EOSINOPHILS (test 41 {cells/uL} 15-500 N code = ABSOLUTE EOSINOPHILS) ABSOLUTE BASOPHILS (test 58 {cells/uL} 0-200 N code = ABSOLUTE BASOPHILS) NEUTROPHILS (test code = 64.6 % N NEUTROPHILS) LYMPHOCYTES (test code = 25.5 % N LYMPHOCYTES) MONOCYTES; Normal (test 8.2 % N code = 07103-2) EOSINOPHILS; Normal (test 0.7 % N code = 72511-6) BASOPHILS; Normal (test 1.0 % N code = 48126-4) [facility]] C-REACTIVE [id number] 11:59:00 Test Item Value Reference Range Interpretation Comments C-REACTIVE PROTEIN (test code = 5.7 mg/L <8.0 N C-REACTIVE PROTEIN) [facility]icians[facility] [id number] 14:00:0050[facility] CHEM [id number] 14:00:001.2[facility]ann[facility] [id number] 14:00:003.5 [facility] [id number] 14:00:0016[facility]annCHEM PANEL 2014-02-21 14:00:0013.4[facility]annCHEM KBXNG8533-90-41 14:00:52597Yuqainlx HermannCHEM KXHEY6937-82-84 14:00:007.8[facility]annCHEM ARWHO7510-00-59 14:00:000.3[facility]annCHE[facility] NWLAI1180-15-63 14:00:0015[facility]annCHE[facility] NZYQF3366-23-72 14:00:008.8[facility]annCHE[facility] [id number] 14:00:05949 [facility] [id number] 14:00:48275Jsbiiblx HermannCHEM PANEL 2014-02-21 14:00:003.4[facility]annCHEM WIRYI5567-94-23 14:00:0024[facility]annCHEM YTWFJ9788-35-37 14:00:000.7[facility]annCHEM XTMKM4389-07-44 14:00:93441Oejkisuu HermannCHEM NOEKO8254-69-84 14:00:0085[facility]annCHEM ZDIAN3550-19-88 14:00:0011[facility]annCHEM CHQAM7495-10-85 14:00:004.3 [facility]annCHE[facility] [id number] 14:00:0015[facility]annHEMATOLOGY 2014-02-21 14:00:00 Test Item Value Reference Range Interpretation Comments PT (test code = PT) 12.9 s 12.0-14.7 Memorial TjgqznjGQUFPQIVLV9388-75-95 14:00:00 Test Item Value Reference Range Interpretation Comments PTT (test code = PTT) 38.8 s 22.9-35.8 Memorial IyikmkyEOUEOORJTU7285-19-03 14:00:000.97[facility]annHEMATOLOGY 2014-02-21 14:00:008.8[facility] UibhjrhCUMMAEWQTV6179-17-16 14:00:0033.0[facility]orial SxsuxbzIERCFPWZMF2804-93-35 14:00:0013.6[facility] MyajfseIFRRCCATKO8930-92-92 14:00:98065Ziaqmxdy ZvyrbcnCPPKQNAJEA3975-98-93 14:00:00 Test Item Value Reference Range Interpretation Comments MCH (test code = MCH) 29.8 pg 27.0-31.0 Memorial FxnquprNDQHATNXGX4893-23-04 14:00:0090.1[facility]annHEMATOLOGY 2014-02-21 14:00:0013.0[facility] IbdncszZSCSTICGGV9621-15-05 14:00:0039.4[facility] PvkatfbESLSGLKMCR7961-02-36 14:00:004.37[facility] KycsuipVRHYYHUIBW3943-61-36 14:00:006.5[facility]orial KtkxcozOYQWTZYCYQ8405-08-03 14:00:001.4[facility] VCGGKQLWSK7245-18-33 14:00:004.5[facility] PivrkstPGGUARPKWI1256-77-35 14:00:007.9 Memorial RwzseseWMQXNGRDAW6049-60-26 14:00:000.7[facility]annHEMATOLOGY 2014-02-21 14:00:0069.3[facility] TzylmgtIPLDELINHX9503-80-18 14:00:0021.4[facility]orial QtoalsrYRSMPQRXHB5441-66-76 14:00:000.7[facility]orial JbjrydpFMCRWSGQIK1561-60-87 14:00:000.5[facility]annURINE AND PFGEZ1242-61-24 13:50:00None Seen (02/21/14 8:50 AM)[facility] WTKXK6262-31-19 13:50:00Performed (02/21/14 8:50 AM)[facility] ONOLH6720-17-51 13:50:00Negative (02/21/14 8:50 AM) [facility] LSGCG8431-21-43 13:50:00Negative (02/21/14 8:50 AM) [facility] TAYQP1642-14-00 13:50:00Negative *NA*(02/21/14 8:50 AM) [facility] PTHWM6100-38-88 13:50:00Yellow *NA*(02/21/14 8:50 AM) [facility] [id number] 13:50:00 Test Item Value Reference Range Interpretation Comments UA Spec Grav (test code = UA Spec 1.010 1 Grav) [facility] [id number] 13:50:00 Test Item Value Reference Range Interpretation Comments UA pH (test code = UA pH) 6.0 1 5.0-8.0 [facility] [id number] 13:50:00Negative (02/21/14 8:50 AM) [facility] [id number] 13:50:00Negative (02/21/14 8:50 AM) [facility] AQZEK9520-82-38 13:50:00Negative *NA*(02/21/14 8:50 AM) [facility] ICWBC4339-21-77 13:50:00Trace *ABN*(02/21/14 8:50 AM) [facility] CLWVO1018-63-53 13:50:000.2[facility] AND QRFOU3257-98-89 13:50:00Clear (02/21/14 8:50 AM)[facility] CHEM 2014-02-21 13:50:00Negative (02/21/14 8:50 AM)[facility] HermannCHEM HBERL9242-13-18 15:22:96748Cryhaodz HermannCHEM SOTXB3561-62-03 15:22:000.7[facility] SXDTEGNWYU3788-33-02 15:22:0013[facility] TdqlhxeQPQQZZTBGO9464-97-37 15:22:93895 [facility]pCOGPQDFZWM7620-88-09 15:22:00 Test Item Value Reference Range Interpretation Comments PTT (test code = PTT) 38.9 s 22.9-35.8 [facility]ZnrbxmxLWLPPMNIAD5246-36-79 02:37:000.22[facility] HermannCARDIAC ENZYMES 2013-11-10 01:49:000.6[facility] HermannCARDIAC QPDWZVI1263-73-11 01:49:000.02 [facility]
[2020-03-09 13:29] LABS: Basophils % 0.6 % (0-1.3); Hematocrit 38.4 % (36.0-45.0); Lymphocytes % 7.2 % (15.3-44.8); MPV 8.5 fL (7.6-11.3); RBC Red Blood Cell Count 4.46 M/uL (3.86-4.86)
[2020-03-09 13:34] LABS: Protime INR 1.05
[2020-03-09 13:54] LABS: ALT/SGPT 19 U/L (12-78); Albumin 4.2 g/dL (3.4-5.0); Alkaline Phosphatase 73 U/L (45-117); BUN Blood Urea Nitrogen 23 mg/dL (7-18); Bicarbonate 27 mmol/L (21-32); Bilirubin Direct 0.2 mg/dL (0-0.2); Bilirubin Total 0.6 mg/dL (0.2-1.0); Glucose Level 123 mg/dL (74-106); Protein, Total 8.1 g/dL (6.4-8.2); Sodium Level 139 mmol/L (136-145)
--- NOTE | 2020-03-09 13:58 | RAD REPORT ---
EXAM DESCRIPTION: CT - Head Brain Wo Cont - 03/09/2020 1:48 pm CLINICAL HISTORY: MENTAL STATUS CHANGE, difficulty with speech COMPARISON: HEAD BRAIN W O CONTRAST dated 05/14/2012 TECHNIQUE: Axial 5 mm thick images of the head were obtained without IV contrast. All CT scans are performed using dose optimization technique as appropriate and may include automated exposure control or mA/KV adjustment according to patient size. FINDINGS: No intracranial hemorrhage, mass, edema or shift of mid-line structures. No acute infarcti on changes seen. No abnormal extra-axial fluid collections. Ventricles are normal. Mastoid air cells and visualized portions of the paranasal sinuses are clear. No acute bony findings. IMPRESSION: Negative non-contrast CT head examination. No significant change from 2012. If there are ongoing, unexplained neurologic findings, MR imaging ma y be helpful for further characterization.
[2020-03-09 14:03] LABS: AST/SGOT 22 U/L (15-37); Potassium 3.9 mmol/L (3.5-5.1)
[2020-03-09 14:35] LABS: Blood Morphology Comment NOT SEEN (NOT SEEN); Platelet Estimate ADEQ
--- NOTE | 2020-03-09 15:35 | RAD REPORT ---
EXAM DESCRIPTION: RAD - Chest Single View - 03/09/2020 3:12 pm CLINICAL HISTORY: DYSPNEA COMPARISON: October 2017 TECHNIQUE: AP portable chest image was obtained 03/09/2020 3:12 pm . FINDINGS: Lung volumes are low. This accentuates the baseline interstitial pattern. No peripheral ma ss or consolidation. Heart and vasculature are normal. No measurable pleural effusion and no pneumoth orax. No acute bony abnormality seen. No acute aortic findings suspected. IMPRESSION: Chronic interstitial lung pattern accentuated by shallow inspiration. No significant change seen from the 2018 study.
[2020-03-09 17:15] LABS: Urine Bacteria <20 /HPF (<20); Urine Culture Reflex Order NOT NEEDED; Urine Mucus 2+ /HPF (NONE SEEN); Urine RBC <5 /HPF (NONE SEEN)
[2020-03-09 17:15] LABS: Urine Blood NEGATIVE (NEG); Urine Glucose NEGATIVE (NEG); Urine Protein 2+ (NEG); Urine Specific Gravity >1.030 (1.005-1.030)
[2020-03-09 17:18] LABS: Barbiturates NEGATIVE (NEGATIVE); Benzodiazepines NEGATIVE (NEGATIVE); Cocaine NEGATIVE (NEGATIVE); METHAMPHETAM NEGATIVE (NEGATIVE); Methadone NEGATIVE (NEGATIVE); Opiates POSITIVE (NEGATIVE); Phencyclidine NEGATIVE (NEGATIVE); THC Cannibis NEGATIVE (NEGATIVE)
--- NOTE | 2020-03-09 21:33 | EDPHYS ---
Physician Documentation [facility] Name: Gale Villalpando Age: 45 yrs Sex: Female : 1975 Arrival Date: 03/09/2020 Time: 12:55 Bed 17 Private MD: ED Physician Florentin Bush HPI: 03/09 17:10 This 45 yrs old Female presents to ER via EMS with complaints of Altered jr8 Mental Status. 17:10 Onset: The symptoms/episode began/occurred gradually, 2 day(s) ago. Possible causes: jr8 unknown. Associated signs and symptoms: The patient has no apparent associated signs or symptoms. Current symptoms: In the emergency department the patient's symptoms are unchanged from the initial presentation. Patient's baseline: Neuro: alert and fully oriented, Motor: no deficits, Ambulation: walks without assistance, Speech: normal. The patient has not experienced similar symptoms in the past. The patient has not recently seen a physician. of patient stated that 2 days ago she came off of her pain medications abruptly for unknown reason. Stated that since then has not been responding to anyone. Dr. Rashid who is her PCP was contacted and had her sent to ED for further evaluation. Patient awake and will follow some commands upon arrival but will not speak. 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 N/A - UNknown wh Historical: - Allergies: 03/09 13:18 Dilaudid; iw 13:18 Tramadol HCl; iw - Home Meds: 13:18 morphine 15 mg Oral tab twice a day [Active]; gabapentin 300 mg oral cap four times a iw day [Active]; duloxetine 60 mg oral cpDR 1 cap once daily [Active]; trazodone 150 mg Oral tab nightly [Active]; methylphenidate 54 mg Oral tr24 1 tab once daily [Active]; celecoxib 200 mg Oral cap 1 cap 2 times per day [Active]; baclofen 10 mg Oral tab 1 tab 3 times per day [Active]; promethazine 25 mg Oral tab 1 tab every 6 hours [Active]; oxycodone-acetaminophen 10-325 mg Oral tab 1 tab every 6 hours [Active]; Estraderm TD twice a week [Active]; - PMHx: 13:18 Arthritis; spondylosis; iw - PSHx: 13:18 Cholecystectomy; Appendectomy; Hysterectomy; left knee; left foot; iw - Immunization history:: Adult Immunizations unknown. - Social history:: Smoking status: unknown. ROS: 17:10 Unable to obtain ROS due to altered mental status. jr8 Exam: 17:10 Eyes: Pupils equal round and reactive to light, extra-ocular motions intact. Lids and jr8 lashes normal. Conjunctiva and sclera are non-icteric and not injected. Cornea within normal limits. Periorbital areas with no swelling, redness, or edema. ENT: Nares patent. No nasal discharge, no septal abnormalities noted. Tympanic membranes are normal and external auditory canals are clear. Oropharynx with no redness, swelling, or masses, exudates, or evidence of obstruction, uvula midline. Mucous membranes moist. Neck: Trachea midline, no thyromegaly or masses palpated, and no cervical lymphadenopathy. Supple, full range of motion without nuchal rigidity. No Meningismus. Cardiovascular: Regular rate and rhythm with a normal S1 and S2. No gallops, murmurs, or rubs. Normal PMI, no JVD. No pulse deficits. Respiratory: Lungs have equal breath sounds bilaterally, clear to auscultation and percussion. No rales, rhonchi or wheezes noted. No increased work of breathing, no retractions or nasal flaring. Abdomen/GI: Soft, with normal bowel sounds. No distension or tympany. Skin: Warm, dry with normal turgor. Normal color with no rashes, no lesions, and no evidence of cellulitis. MS/ Extremity: Pulses equal, no cyanosis. Neurovascular intact. Full, normal range of motion. 17:10 Neuro: Orientation: to person, place, time, situation, Mentation: able to follow commands, inappropriate for stated age, Memory: unable to test, Cranial nerves: CN I not tested, extraocular movements are intact, Motor: moves all fours, strength is 5/5 in all extremities, Sensation: no obvious gross deficits, seizure activity, is not displayed by the patient, Abnormal movements: there are no abnormal movements. Vital Signs: 12:55 BP 140 / 78; Pulse 80; Resp 16; Temp 99.3(T); Pulse Ox 100% on R/A; mt 14:14 BP 152 / 88; Pulse 85; Resp 18; Pulse Ox 100% on R/A; em 15:00 BP 152 / 89; Pulse 86; Resp 18; Pulse Ox 99% on R/A; em 15:30 Temp 98.3; em 16:00 BP 157 / 88; Pulse 82; Resp 18; Pulse Ox 97% on R/A; em 18:05 BP 151 / 98; Pulse 64; Resp 18; Pulse Ox 98% on R/A; em MDM: 13:00 Patient medically screened. [facility] 17:10 Data reviewed: vital signs, nurses notes, lab test result(s), EKG, radiologic studies, jr8 CT scan. Data interpreted: Pulse oximetry: on room air is 100 %. Interpretation: normal. Counseling: I had a detailed discussion with the patient and/or guardian regarding: the historical points, exam findings, and any diagnostic results supporting the discharge/admit diagnosis, lab results, radiology results, the need for further work-up and treatment in the hospital. ED course: Patient continues to not talk to anyone. Will voluntarily not allow us to do things to help her but refuses/can't respond. Dr. Rashid was notified of this. We have tried to transfer to two other [facility] facilities as we believe this is behavioral in nature but all have declined thus far because patient cannot do ADLs and will not speak. 03/09 13:12 Order name: Acetaminophen; Complete Time: 14:53 em 03/09 13:12 Order name: Basic Metabolic Panel; Complete Time: 14:53 03/09 13:12 Order name: CBC with Diff; Complete Time: 14:53 03/09 13:12 Order name: ETOH Level; Complete Time: 13:47 03/09 13:12 Order name: Hepatic Function; Complete Time: 14:53 03/09 13:12 Order name: PT-INR; Complete Time: 13:47 03/09 13:12 Order name: Ptt, Activated; Complete Time: 13:47 03/09 13:12 Order name: Salicylate; Complete Time: 14:53 03/09 13:12 Order name: Urine Drug Screen; Complete Time: 17:18 03/09 13:15 Order name: AMMONIA; Complete Time: 14:53 [facility] 03/09 13:15 Order name: Urine Microscopic Only; Complete Time: 17:18 [facility] 03/09 13:31 Order name: Manual Differential; Complete Time: 14:53 EDMA 03/09 14:54 Order name: Blood Culture Adult (2) [facility] 03/09 14:54 Order name: Procalcitonin; Complete Time: 16:11 [facility] 03/09 17:01 Order name: Urine Dipstick--Ancillary (enter results); Complete Time: 17:18 bd 03/09 21:38 Order name: Basic Metabolic Panel EDMA 03/09 21:38 Order name: Basic Metabolic Panel EDMS 03/09 22:47 Order name: Magnesium EDMS 03/09 22:47 Order name: Prealbumin; Complete Time: 01:02 EDMS 03/09 22:47 Order name: Thyroid Stimulating Hormone EDMS 03/09 22:47 Order name: CBC with Automated Diff EDMS 03/09 22:47 Order name: CBC with Automated Diff EDMS 03/09 22:47 Order name: CBC with Automated Diff EDMS 03/09 22:47 Order name: CBC with Automated Diff EDMS 03/09 22:47 Order name: Comprehensive Metabolic Panel MS 03/09 22:47 Order name: Comprehensive Metabolic Panel [facility] 03/09 22:47 Order name: Comprehensive Metabolic Panel MS 03/09 22:47 Order name: Comprehensive Metabolic Panel [facility] 03/09 22:49 Order name: Prealbumin [facility] 03/11 07:23 Order name: Phosphorus [facility] 03/09 13:12 Order name: EKG; Complete Time: 13:13 03/09 13:12 Order name: IV Saline Lock; Complete Time: 13:21 03/09 13:12 Order name: Labs collected and sent; Complete Time: 13:21 03/09 13:12 Order name: Urine Dipstick-Ancillary (obtain specimen); Complete Time: 16:49 03/09 13:12 Order name: Head Brain Wo Cont CT; Complete Time: 14:53 03/09 14:54 Order name: XRAY Chest (1 view); Complete Time: 15:38 [facility] 03/09 15:15 Order name: Cath; Complete Time: 16:49 [facility] 03/09 21:38 Order name: Regular EDMS 03/09 23:09 Order name: Social Service Consult [facility] 03/11 07:23 Order name: Magnesium EDMS Administered Medications: No medications were administered Disposition: 03/11 14:54 Co-signature as Attending Physician, Florentin Bush MD I agree with the assessment and kdr plan of care. Disposition: 03/09/20 21:32 Hospitalization ordered by Benitez Rashid for Inpatient Admission. Preliminary diagnosis is Dehydration. - Bed requested for [facility] ER HOLD. - Status is Inpatient Admission. bp - Condition is Stable. - Problem is new. - Symptoms are unchanged. Signatures: Dispatcher [employer] EDMS Isabel Cazares RN RN Prasanna Zavala RN RN sg Rittger, Kevin, MD MD [facility] Toni Walker PA PA [facility] Blas Earl RN KOLBY Emelia Nj RN RN Jhoan Coyle PA PA Marty Simpson Gulshan Campbell RN RN bp Corrections: (The following items were deleted from the chart) 03/09 15:53 13:12 EKG - Nurse/Tech ordered. [facility] 22:00 21:32 Hospitalization Ordered by Benitez Rashid MD for Observation. Preliminary diagnosis jmm is Dehydration; Unspecified psychosis not due to a substance or known physiological condition. Bed requested for Telemetry/MedSurg (observation). Status is Observation. Condition is Stable. Problem is new. Symptoms are unchanged. [facility] 22:01 22:00 03/09/2020 21:32 Hospitalization Ordered by Benitez Rashid MD for Inpatient mw Admission. Preliminary diagnosis is Dehydration; Unspecified psychosis not due to a substance or known physiological condition. Bed requested for Intensive Care Unit. Status is Inpatient Admission. Condition is Stable. Problem is new. Symptoms are unchanged. [facility] 22:56 22:01 03/09/2020 21:32 Hospitalization Ordered by Benitez Rashid MD for Observation. [facility] Preliminary diagnosis is Dehydration; Unspecified psychosis not due to a substance or known physiological condition. Bed requested for [facility] ER HOLD. Status is Observation. Condition is Stable. Problem is new. Symptoms are unchanged. mw 03/11 08:28 03/09 22:56 03/09/2020 21:32 Hospitalization Ordered by Benitez Rashid MD for Inpatient bp Admission. Preliminary diagnosis is Dehydration. Bed requested for [facility] ER HOLD. Status is Inpatient Admission. Condition is Stable. Problem is new. Symptoms are unchanged. [facility]
--- NOTE | 2020-03-09 21:33 | ER ---
Nurse's Notes [facility] Name: Gale Villalpando Age: 45 yrs Sex: Female : 1975 Arrival Date: 03/09/2020 Time: 12:55 Bed 17 Private MD: Diagnosis: Dehydration Presentation: 03/09 13:08 Chief complaint: EMS states: AMS since yesterday, stated that pt speech has iw been fragmented since yesterday and today she isn't speaking at all, can answer yes/no questions by shaking/nodding head, stopped taking narcotic medications yesterday and Dr. Moon was concerned she was having withdrawal symptoms. Coronavirus screen: At this time, the client does not indicate any symptoms associated with coronavirus-19. Ebola Screen: Patient negative for fever greater than or equal to 101.5 degrees Fahrenheit, and additional compatible Ebola Virus Disease symptoms Patient denies exposure to infectious person. Patient denies travel to an Ebola-affected area in the 21 days before illness onset. No symptoms or risks identified at this time. Initial Sepsis Screen: Does the patient meet any 2 criteria? No. Patient's initial sepsis screen is negative. Does the patient have a suspected source of infection? No. Patient's initial sepsis screen is negative. Risk Assessment: Do you want to hurt yourself or someone else? Patient reports no desire to harm self or others. Onset of symptoms was March 08, 2020. 13:08 Method Of Arrival: EMS: [facility] iw 13:08 Acuity: KAR 3 iw 20:30 Coronavirus screen: Client denies travel out of the [place] in the last 14 days. At this sg time, the client does not indicate any symptoms associated with coronavirus-19. The client denies any previous COVID testing. information provided by pt spouse. 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/A - UNknown wh Historical: - Allergies: 03/09 13:18 Dilaudid; iw 13:18 Tramadol HCl; iw - Home Meds: 13:18 morphine 15 mg Oral tab twice a day [Active]; gabapentin 300 mg oral cap four times a iw day [Active]; duloxetine 60 mg oral cpDR 1 cap once daily [Active]; trazodone 150 mg Oral tab nightly [Active]; methylphenidate 54 mg Oral tr24 1 tab once daily [Active]; celecoxib 200 mg Oral cap 1 cap 2 times per day [Active]; baclofen 10 mg Oral tab 1 tab 3 times per day [Active]; promethazine 25 mg Oral tab 1 tab every 6 hours [Active]; oxycodone-acetaminophen 10-325 mg Oral tab 1 tab every 6 hours [Active]; Estraderm TD twice a week [Active]; - PMHx: 13:18 Arthritis; spondylosis; iw - PSHx: 13:18 Cholecystectomy; Appendectomy; Hysterectomy; left knee; left foot; iw - Immunization history:: Adult Immunizations unknown. - Social history:: Smoking status: unknown. Screenin:07 Abuse screen: Denies threats or abuse. Nutritional screening: No deficits noted. em Tuberculosis screening: No symptoms or risk factors identified. Fall Risk None identified. Assessment: 13:10 General: Appears in no apparent distress. well groomed, well developed, well nourished, em Behavior is flat, quiet. Pain: Unable to use pain scale. Does not appear to understand pain scale. Neuro: Level of Consciousness is awake, Pupils are dilated. Cardiovascular: Capillary refill < 3 seconds Patient's skin is warm and dry. Respiratory: Airway is patent Respiratory effort is even, unlabored, Respiratory pattern is regular. Derm: Skin is intact, is healthy with good turgor, Skin is pink, warm \\T\\ dry. Musculoskeletal: Capillary refill < 3 seconds, Range of motion: intact in all extremities. 14:14 Reassessment: Patient appears in no apparent distress at this time. No changes from em previously documented assessment. 15:58 Reassessment: spoke with Lakisha at [facility] and pt was denied due to unable to speak. em 16:49 Reassessment: Patient appears in no apparent distress at this time. No changes from em previously documented assessment. pt still unable to speak, RICHARD Staples and CHRISTINA Navarro tech at bedside to cath pt, pt uncooperative, obtained specimen and sent to lab. 17:08 Reassessment: spoke with Farheen at [facility], pt was declined due to pt em unable to perform ADL's and being nonverbal, Farheen also started that Dr. Moon called to inform their staff that she is "some respiratory issue" and I informed her that pt has not had any respiratory distress while under my care, pt SPO2 100% on RA. 17:25 Reassessment: received phone call from Farheen at [facility] and verified that em pt is not accepted and states she spoke with Dr. Moon about transfer, informed him that she would not be a candidate for transfer due to her being nonverbal, she also referred us to [facility] with number [phone], provider notified. 18:05 Reassessment: Patient appears in no apparent distress at this time. No changes from em previously documented assessment. 19:01 Reassessment: spoke with Iza at [facility], request updated nurses notes em and medication list, states they are able to take of pt but may need a MARIXA because pt is nonverbal. 19:30 Reassessment: Report given to Stephanie with [facility] facility, awaiting a call back sg after Stephanie speaks with her stock supervisor about the patient. 19:39 Reassessment: Report given to [facility], reports needs to speak with her stock supervisor about the patient, awaiting a call back at this time. 19:48 Reassessment: report given to Arias at [facility], awaiting a call back from facility after she speaks with her stock supervisor. 19:55 Reassessment: [facility] [place] [place] has refused the patient at this time until the pt is ambulatory sg and able to perform ADLS independently and is able to speak. 20:08 Reassessment: Daniel with [facility] reports that he received the report sg from Iza who performed an assessment on this patient and stated that she is in a catatonic state and is able to do her ADLS but is just refusing to perform them. Have received a number for DOC TO DOC report to , information given to BENNETT Muñoz for report. awaiting acceptance at this time. 20:18 Reassessment: Stephanie with [facility], on phone to finish report at this time, a number sg for DOC TO DOC has been provided and given to BENNETT Muñoz PA awaiting new order at this time. 20:28 Reassessment: on the phone requesting an update on pt transfer status, sg updated, requests a call back when the pt is placed. 03/11 08:23 Reassessment: PT SEEN BY DR MOON, D/C HOME WITH FAMILY. bp Vital Signs: 03/09 12:55 BP 140 / 78; Pulse 80; Resp 16; Temp 99.3(T); Pulse Ox 100% on R/A; mt 14:14 BP 152 / 88; Pulse 85; Resp 18; Pulse Ox 100% on R/A; em 15:00 BP 152 / 89; Pulse 86; Resp 18; Pulse Ox 99% on R/A; em 15:30 Temp 98.3; em 16:00 BP 157 / 88; Pulse 82; Resp 18; Pulse Ox 97% on R/A; em 18:05 BP 151 / 98; Pulse 64; Resp 18; Pulse Ox 98% on R/A; em ED Course: 12:55 Patient arrived in ED. iw 13:00 Jhoan Coyle PA is PHCP. jr8 13:00 Florentin Bush MD is Attending Physician. jr8 13:02 Blas Earl, RN is Primary Nurse. em 13:07 Patient has correct armband on for positive identification. Placed in gown. Bed in low em position. Call light in reach. Pulse ox on. NIBP on. 13:11 Triage completed. iw 13:18 Arm band placed on. iw 13:49 Head Brain Wo Cont CT In Process Unspecified. EDMS 15:13 XRAY Chest (1 view) In Process Unspecified. EDMS 15:40 PHCP role handed off by Jhoan Coyle PA jmm 15:40 Toni Walker PA is PHCP. jmm 15:47 initiated transfer to [facility]. sent to the attention of karla Rodríguez per Dr Moon. 15:58 talked to nurse at [facility], confirmed that chart was received. bd 16:43 faxed chart to [facility] [place]. bd 16:55 Straight cath inserted, using sterile technique, 16 Fr. Specimen obtained. Returned la willie urine. Patient tolerated poorly. 17:49 faxed chart to [facility]. bd 17:54 faxed chart to [facility], [facility], [facility], [facility], [facility] and [facility]. 18:18 confirmed with Cierra at [facility] that fax was received. bd 18:31 pt denied by [facility] due to pt not being able to perform adls and possibly going into bd withdrawals soon. 18:41 was informed by Cierra at [facility] that she had spoken with dr moon and informed him bd why pt cannot be accepted in transfer to [facility]. 18:50 confirmed with Iza at [facility] that chart was received. bd 21:29 Benitez Moon MD is Hospitalizing Provider. [facility] 22:15 Primary Nurse role handed off by Blas Earl, RN 22:15 Prasanna Zavala, RN is Primary Nurse. 22:45 Inserted saline lock: 24 gauge in right forearm, using aseptic technique. Blood ds4 collected. 03/10 01:21 Prealbumin Sent. ds4 04:00 Report received from Prasanna Zavala RN. 04:00 No provider procedures requiring assistance completed. Patient admitted, IV remains in place. Administered Medications: No medications were administered Outcome: 03/09 21:32 Decision to Hospitalize by Provider. [facility] 03/10 04:00 Admitted to ER Hold. Please see [facility] for further documentation. Condition: stable Instructed on the need for admit. 03/11 08:28 Patient left the ED. bp Signatures: Dispatcher [employer] EDMS Leslie Guerrero Steven, RN KOLBY Toni Walker PA PA [facility] Blas Earl, RN Emelia Mckeon RN RN Jhoan Coyle PA PA [facility] Gildardo Cifuentes ds4 Melanie Wagner la Marty Sharma Gulshan Campbell RN RN bp Corrections: (The following items were deleted from the chart) 03/09 16:56 16:55 Straight cath inserted, using sterile technique, 16 Fr. Specimen obtained. mt Returned willie urine. Patient tolerated well. la
[2020-03-09] MEDS ORDERED: HALOPERIDOL LACT 5 MG/ML INJ IV PRN (21:35)
[2020-03-09] MEDS ORDERED: ONDANSETRON 4 MG/2 ML VIAL IV PRN (21:35)
[2020-03-09] MEDS ORDERED: HYDRALAZINE HCL 20 MG/ML VIAL IV PRN (22:43)
[2020-03-09] MEDS ORDERED: THIAMINE 200 MG/2 ML INJ IVP ONE (22:43)
--- NOTE | 2020-03-09 22:59 | P.HP ---
Certification for Inpatient Patient admitted to: Inpatient With expected LOS: >2 Midnights Patient will require the following post-hospital care: Other Practitioner: I am a practitioner with admitting privileges, knowledge of patient current condition, hospital course, and medical plan of care. Services: Services provided to patient in accordance with Admission requirements found in Title 42 Section 412.3 of the Code of Federal Regulations Patient History Date of Service: 03/09/20 Primary Care Provider: Kristine Acosta Reason for admission: opiate abuse disorder/withdrawal History of Present Illness: Patient of Mrs Acosta The patients called our office yesterday. Stated she had stop taking her pain medications. The patient has been on a lot of pain meds for several years. She had stopped taking them and speaking to him. The was asked to bring the patient for detox. She however did not come. He called again, she had worsened. Would not speak. Would not take meds. As the was very scared we had [facility] bring her to the ER. The patient had a normal CT scan and blood work. However she did not respond Have tried working with to transfer to in pt psych. However she has been turned down by several facilities. Allergies hydromorphone HCl [From Dilaudid] Allergy (Verified 09/02/12 12:43) Itching/Hives/Rash Tramadol HCl Allergy (Uncoded 03/10/17 19:22) Unknown Home Medications: Adalimumab [Humira 40 MG/0.8 ML*] 40 mg SQ SEECOM 09/02/12 Gabapentin 800 mg PO TID 09/02/12 Tizanidine [Zanaflex*] 4 mg PO TIDP PRN 09/02/12 Albuterol Inhaler [Ventolin Inhaler*] 2 puff IH Q6HP PRN #0 hfa.aer.ad 09/05/12 Amox/Clavulanate [Augmentin 875-125 Tab*] 1 each PO BID #0 tab 09/05/12 Hydrocodone Bit/Acetaminophen [[place] 10-325 Tablet] 1 each PO Q6HP PRN #0 tablet 09/05/12 Methylprednisolone [Medrol] 0 mg PO CONT #0 tablet 09/05/12 - Social History Alcohol use: No CD- Drugs: No Caffeine use: Yes Review of Systems is unable to be obtained Physical Examination - Physical Exam General: Other (patient awake and follows some comands. ) HEENT: Normocephalic, PERRLA (Left cornea has a chronic cloudiness) Neck: Supple, 2+ carotid pulse no bruit, No LAD, Without JVD or thyroid abnormality Respiratory: Clear to auscultation bilaterally, Normal air movement Cardiovascular: Regular rate/rhythm, Normal S1 S2 Gastrointestinal: Normal bowel sounds, No tenderness - Studies Laboratory Data (last 24 hrs) 03/09/20 13:14: PT 12.4, INR 1.05, APTT 24.0 L 03/09/20 13:14: WBC 13.5 H, Hgb 12.7, Hct 38.4, Plt Count 296 03/09/20 13:14: Sodium 139, Potassium 3.9, BUN 23 H, Creatinine 0.59, Glucose 123 H, Total Bilirubin 0.6, AST 22, ALT 19, Alkaline Phosphatase 73 Assessment and Plan - Problems (Diagnosis) (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 Will start the patient on haldo. she will need a sitter Will see if we can get her more stable and transfer to a psychiatric facility (2) Opiate abuse, continuous Current Visit: Yes Status: Acute Plan: She baylee been chronically on pain medications. She had a psychological operations specialist aware score of 240 However she has stoped Will need to worry about withdrawal. Will keep her on fluids and electrolyte replacement. Will consider suboxone therapy as an outpatient (3) Panic disorder Current Visit: Yes Status: Acute Plan: Will need to continue haldol for now. She will need antidepresant therapy in the future. As well as councilling. (4) Psoriatic arthritis Current Visit: Yes Status: Acute Plan: She is on cosentyx as an outpatient. Will restart as she becomes more stable. Discharge Plan: Psychiatry Plan to discharge in: 48 Hours - Advance Directives Does patient have a Living Will: No Does patient have a Durable POA for Healthcare: No - Code Status/Comfort Care Code Status Assessed: Yes Code Status: Full Code Critical Care: No Time Spent Managing Pts Care (In Minutes): 150
[2020-03-09] MEDS ORDERED: D5 0.45 NS 1,000 ML IV SCH (23:00)
[2020-03-10 02:33] VITALS: BMI 28.3
[2020-03-10] MEDS ORDERED: D5 0.45 NS 1,000 ML IV ONE (03:24)
[2020-03-10 06:31] LABS: Absolute Lymphocytes (CBC) 0.9 K/uL (0.7-4.9); Basophils % 0.3 % (0-1.3); Hematocrit 37.3 % (36.0-45.0); Lymphocytes % 7.4 % (15.3-44.8); MPV 8.3 fL (7.6-11.3); RBC Red Blood Cell Count 4.35 M/uL (3.86-4.86)
[2020-03-10 06:34] LABS: BUN Blood Urea Nitrogen 28 mg/dL (7-18); Bicarbonate 23 mmol/L (21-32); Glucose Level 138 mg/dL (74-106); Potassium 3.5 mmol/L (3.5-5.1); Sodium Level 142 mmol/L (136-145)
[2020-03-10] MEDS ORDERED: ALPRAZOLAM 1 MG TABLET ONE ×3 (06:58→21:50)
[2020-03-10 07:34] LABS: ALT/SGPT 18 U/L (12-78); AST/SGOT 17 U/L (15-37); Alkaline Phosphatase 64 U/L (45-117); BUN Blood Urea Nitrogen 28 mg/dL (7-18); Bicarbonate 22 mmol/L (21-32); Bilirubin Total 0.6 mg/dL (0.2-1.0); Glucose Level 137 mg/dL (74-106); Magnesium 2.2 mg/dL (1.8-2.4); Potassium 3.5 mmol/L (3.5-5.1); Protein, Total 7.4 g/dL (6.4-8.2); Sodium Level 142 mmol/L (136-145); Thyroid Stimulating Hormone 0.994 uIU/mL (0.360-3.740)
[2020-03-10] MEDS ORDERED: HOME MED 1 EA UNK (Gabapentin [Gabapentin] 800 MG) PO SCH (09:00)
[2020-03-10] MEDS ORDERED: POTASSIUM CL SA 10 MEQ TAB PO ONE (09:00)
[2020-03-10] MEDS: GABAPENTIN 400 MG CAP PO SCH ×3 (09:00→21:00)
--- NOTE | 2020-03-10 11:01 | P.PN ---
Subjective Date of Service: 03/10/20 Primary Care Provider: Kristine Acosta Chief Complaint: opiate abuse disorder/withdrawal Subjective: New changes (Patient is answering one word changes. States she is in pain. Will not elucidate beyond this.) Review of Systems is unable to be obtained Physical Examination - Vital Signs Temperature: 97.8 F Blood Pressure: 144/87 Pulse: 66 Respirations: 18 Pulse Ox (%): 99 - Physical Exam General: Alert, Other (minimally responsive) Neck: Supple Respiratory: Clear to auscultation bilaterally, Diminished Cardiovascular: No edema, Normal pulses Gastrointestinal: Normal bowel sounds - Studies Laboratory Data (last 24 hrs) 03/09/20 13:14: PT 12.4, INR 1.05, APTT 24.0 L 03/09/20 13:14: WBC 13.5 H, Hgb 12.7, Hct 38.4, Plt Count 296 03/09/20 13:14: Sodium 139, Potassium 3.9, BUN 23 H, Creatinine 0.59, Glucose 123 H, Total Bilirubin 0.6, AST 22, ALT 19, Alkaline Phosphatase 73 Assessment & Plan - Problems (Diagnosis) (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 Will start the patient on haldo. she will need a sitter Will see if we can get her more stable and transfer to a psychiatric facility 03/10 Patient is slight more alert. Will continue haldol. 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 She had a splicing supervisor aware score of 240 However she has stoped Will need to worry about withdrawal. Will keep her on fluids and electrolyte replacement. Will consider suboxone therapy as an outpatient 03/10 She is stating she is hurting. pulse is low. Will judiciously use benzo and morphine. She is most likely withdrawing. (3) Panic disorder Current Visit: Yes Status: Acute Plan: Will need to continue haldol for now. She will need antidepresant therapy in the future. As well as councilling. (4) Psoriatic arthritis Current Visit: Yes Status: Acute Plan: She is on cosentyx as an outpatient. Will restart as she becomes more stable. Discharge Plan: Psychiatry Plan to discharge in: 48 Hours - Code Status/Comfort Care Code Status Assessed: No Critical Care: No Time Spent Managing Pts Care (In Minutes): 25
[2020-03-10] MEDS ORDERED: MORPHINE 4 MG/ML SYR IM PRN (11:05)
[2020-03-10] MEDS: HALOPERIDOL LACT 5 MG/ML INJ IV SCH ×2 (11:45→21:02)
[2020-03-10] MEDS ORDERED: MORPHINE 4 MG/ML SYR ONE (11:49)
[2020-03-10] MEDS ORDERED: ONDANSETRON 4 MG/2 ML VIAL ONE (11:50)
[2020-03-10] MEDS ORDERED: HALOPERIDOL LACT 5 MG/ML INJ ONE (11:53)
[2020-03-10] MEDS ORDERED: LORazepam 2 MG/ML VIAL ONE (16:48)
[2020-03-10] MEDS ORDERED: LORazepam 2 MG/ML VIAL IV ONE (16:54)
[2020-03-10] MEDS: ALPRAZOLAM 1 MG TABLET PO PRN (22:32)
[2020-03-11 06:36] LABS: Absolute Lymphocytes (CBC) 2.4 K/uL (0.7-4.9); Basophils % 0.5 % (0-1.3); Hematocrit 35.8 % (36.0-45.0); Lymphocytes % 22.3 % (15.3-44.8); MPV 8.5 fL (7.6-11.3); RBC Red Blood Cell Count 4.16 M/uL (3.86-4.86)
[2020-03-11 06:39] LABS: ALT/SGPT 21 U/L (12-78); AST/SGOT 17 U/L (15-37); Albumin 3.7 g/dL (3.4-5.0); Alkaline Phosphatase 60 U/L (45-117); BUN Blood Urea Nitrogen 22 mg/dL (7-18); Bicarbonate 27 mmol/L (21-32); Bilirubin Total 0.5 mg/dL (0.2-1.0); Glucose Level 100 mg/dL (74-106); Potassium 3.5 mmol/L (3.5-5.1); Protein, Total 6.7 g/dL (6.4-8.2); Sodium Level 140 mmol/L (136-145)
[2020-03-11] MEDS: ALPRAZOLAM 1 MG TABLET PO PRN (06:43)
[2020-03-11] MEDS ORDERED: ALPRAZOLAM 1 MG TABLET ONE (06:50)
[2020-03-11] MEDS ORDERED: POTASSIUM CL SA 10 MEQ TAB PO ONE ×2 (06:53→07:09)
[2020-03-11 07:23] LABS: Magnesium 1.9 mg/dL (1.8-2.4); Phosphorus 3.3 mg/dL (2.5-4.9)
[2020-03-11 08:09] VITALS: BP 153/72; TEMP 97.5
--- NOTE | 2020-03-11 08:12 | P.DS ---
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 Stated she had stop taking her pain medications. The patient has been on a lot of pain meds for several years. She had stopped taking them and speaking to him. The was asked to bring the patient for detox. She however did not come. He called again, she had worsened. Would not speak. Would not take meds. As the was very scared we had [facility] bring her to the ER. The patient had a normal CT scan and blood work. However she did not respond Have tried working with to transfer to in pt psych. However she has been turned down by several facilities. Hospital Course: Patient was brought to the hospital after a break. She was non responsive for most of her stay here. She was given some haldol and eventually woke up. She was then very agitated. The patient was given intermittent ativan for this. She is verbal this morning and wants to go home. The patient states she did not sleep for a day and then decided not to take her medications. States she was trying to prove something. At this time she does not remember what her thinking was. She states she is going to [facility] for counselling. She goes to pain management [facility] in [place]. I have spoken with her for over 20min alone on mental health. She has addiction issues, chronic pain from Psoriatic arthritis. There is some underlying panic/depression issues. Have discussed starting her on suboxone for addiction. Will plain of continuing therapy. Short course of benzo while we start her on an antidepressant. Will have the office call her in the morning. Vital Signs/Physical Exam: Temp Pulse Resp BP Pulse Ox 98.5 F 75 16 127/69 100 03/11/20 05:20 03/11/20 05:20 03/11/20 05:20 03/11/20 05:20 03/11/20 05:20 General: Alert, In no apparent distress HEENT: Atraumatic, PERRLA, EOMI Neck: Supple, JVD not distended Respiratory: Clear to auscultation bilaterally, Normal air movement Cardiovascular: Regular rate/rhythm, Normal S1 S2 Gastrointestinal: Normal bowel sounds, No tenderness Musculoskeletal: No tenderness Integumentary: No rashes Neurological: Normal speech, Normal tone, Normal affect Lymphatics: No axilla or inguinal lymphadenopathy Laboratory Data at Discharge: WBC 10.5 K/uL (4.3-10.9) D 03/11/20 06:00 Hgb 12.1 g/dL (12.0-15.0) 03/11/20 06:00 Hct 35.8 % (36.0-45.0) L 03/11/20 06:00 Plt Count 247 K/uL (152-406) 03/11/20 06:00 PT 12.4 SECONDS (9.5-12.5) 03/09/20 13:14 INR 1.05 03/09/20 13:14 APTT 24.0 SECONDS (24.3-36.9) L 03/09/20 13:14 Sodium 140 mmol/L (136-145) 03/11/20 06:00 Sodium Cancelled 03/11/20 06:00 Potassium 3.5 mmol/L (3.5-5.1) 03/11/20 06:00 Potassium Cancelled 03/11/20 06:00 BUN 22 mg/dL (7-18) H 03/11/20 06:00 BUN Cancelled 03/11/20 06:00 Creatinine 0.50 mg/dL (0.55-1.3) L 03/11/20 06:00 Creatinine Cancelled 03/11/20 06:00 Glucose 100 mg/dL (74-106) 03/11/20 06:00 Glucose Cancelled 03/11/20 06:00 Phosphorus 3.3 mg/dL (2.5-4.9) 03/11/20 06:00 Magnesium 1.9 mg/dL (1.8-2.4) 03/11/20 06:00 Total Bilirubin 0.5 mg/dL (0.2-1.0) 03/11/20 06:00 AST 17 U/L (15-37) 03/11/20 06:00 ALT 21 U/L (12-78) 03/11/20 06:00 Alkaline Phosphatase 60 U/L (45-117) 03/11/20 06:00 Home Medications: Adalimumab [Humira 40 MG/0.8 ML*] 40 mg SQ SEECOM 09/02/12 Gabapentin 800 mg PO TID 09/02/12 Tizanidine [Zanaflex*] 4 mg PO TIDP PRN 09/02/12 Albuterol Inhaler [Ventolin Inhaler*] 2 puff IH Q6HP PRN #0 hfa.aer.ad 09/05/12 Amox/Clavulanate [Augmentin 875-125 Tab*] 1 each PO BID #0 tab 09/05/12 Hydrocodone Bit/Acetaminophen [[place] 10-325 Tablet] 1 each PO Q6HP PRN #0 tablet 09/05/12 Methylprednisolone [Medrol] 0 mg PO CONT #0 tablet 09/05/12 clonazePAM [Clonazepam] 1 mg PO BID PRN #15 tablet 03/11/20 New Medications: clonazePAM [Clonazepam] 1 mg PO BID PRN #15 tablet PRN Reason: Anxiety Diet: Regular Activity: Ad em Followup: Benitez Rashid MD [Primary Care Provider] - 1-2 Days (I have given the patient my card) Time spent managing pt's care (in minutes): 40
[2020-03-11 08:42] VITALS: O2SAT 98
== END 2020-03-11 08:28 | disposition home or self-care (01) ==
LOC: ER 12:51 → SUPCPDRO 12:51 → ERHOLD 03-10 01:05
PROVIDERS: ADMIT Internal Medicine; ATTEND Internal Medicine
DX: F23 Brief psychotic disorder (principal); F11.10 Opioid abuse, uncomplicated; F41.0 Panic disorder [episodic paroxysmal anxiety]; L40.50 Arthropathic psoriasis, unspecified; M47.899 Other spondylosis, site unspecified
CPT/HCPCS: 93005; 87040; 85025 ×3; 80048 ×2; 36415 ×2; 80320; 82140; 83735 ×2; 80329 ×2; 84100; 85610; 80076; 80307 ×8; 85730; 84443; 84134; 80053 ×2; 84145; 70450; 71045; 51702; 99285; J1630; J7799; J2405; G0378 ×3; 81003; 81015

== ENCOUNTER 2020-06-15 10:34 | Inpatient (IN) | payer OTHER ==
--- OUTSIDE RECORDS SUMMARY | 2020-06-15 10:37 | XMS REPORT | Clinical Summary ---
:1975 Author Organization [facility] Address [address] [place] [id number] Care Team Providers Name Role Phone AlberkanuDelia Primary Care Provider Allergies Active Allergy Reactions Severity Noted Date Comments Hydromorphone GI Intolerance Medium 12/02/2018 Methotrexate Rash Low 12/02/2018 Medications Medication Sig Dispensed Refills Start End Status Date Date celecoxib (CeleBREX) 0 11/08/19 Active 200 MG capsule 19 gabapentin Take 300 mg by 0 11/16/19 Acti ve (NEURONTIN) 300 mg mouth 4 (four) 19 capsule times a day. secukinumab Inject 300 mg 0 Acti ve (COSENTYX) 150 mg/mL under the skin syringe every 14 (fourteen) days. trazodone HCl Take 1 tablet by 0 Active (TRAZODONE ORAL) mouth nightly. promethazine promethazine 25 0 A ctive (PHENERGAN) 25 MG mg tablet tablet morphine (MORPHABOND every 12 0 02/11/20 Active ER) 15 mg (twelve) hours. 19 tablet,oral only,ext.rel.12 hr leflunomide (ARAVA) 1 (one) time 0 01/29/20 Active 20 MG tablet each day at the 19 same time. omeprazole TAKE 2 CAPSULES 90 capsule 3 04/25/20 Ac tive (PriLOSEC) 20 MG BY MOUTH EVERY 20 capsuleIndications: DAY Gastroesophageal reflux disease without esophagitis estradiol 0 11/19/19 Discontinu ed (VIVELLE-DOT) 0.1 19 020 (P atient mg/24 hr Reported) dexlansoprazole Take 60 mg by 0 Discontinued (DEXILANT) 60 mg mouth daily. 020 (Patient capsule Reported) HYDROcodone-acetamin 0 05/08/20 Discontinued ophen (NORCO) 10-325 15 020 (Patient mg per tablet Report ed) hydrOXYzine (ATARAX) Take 50 mg by 0 04/19/2003/21 Discontinued 50 MG tablet mouth Every 6 19 020 (Santiago vang hours while Reported ) awake as needed (RT). ipratropium ipratropium 0 Discon tinued (ATROVENT) 0.03 % bromide 0.03 % 020 (Patient nasal spray nasal spray Report ed) methocarbamol methocarbamol 0 Di scontinued (ROBAXIN) 500 MG 500 mg tablet 020 (Patient tablet Reported) lubiprostone AMITIZA 24 MCG 0 01/29/20 Di scontinued (AMITIZA) 24 MCG CAPS 19 020 (Santiago vang capsule Reported) LORAZepam (ATIVAN) 1 lorazepam 1 mg 0 12/14 Discontinued MG tablet tablet 020 (Patient Reported) methotrexate 2.5 MG methotrexate 0 Discontinued tablet sodium 2.5 mg 020 (Patie nt tablet Reported) naloxegol (MOVANTIK) Movantik 25 mg 0 12/14 Discontinued 25 mg tablet tablet tablet 020 (Patient Reported) omeprazole omeprazole 40 mg 0 Di scontinued (PriLOSEC) 40 MG capsule,delayed 020 (Patient capsule release Reported) predniSONE prednisone 10 mg 0 Di scontinued (DELTASONE) 10 mg tablet 020 (P atient tablet Reported) temazepam (RESTORIL) temazepam 15 mg 0 12/14 Discontinued 15 mg capsule capsule 020 (Patie nt Reported) triazolam (HALCION) triazolam 0.25 0 03/21 Discontinued 0.25 MG tablet mg tablet 020 (Reyna ent Reported) sodium,potassium,mag Take 2 Bottles 1 kit 0 03/21/2012/14 sulfates (Suprep (354 mL total) 20 020 Bowel Prep Kit) by mouth once 17.5-3.13-1.6 gram for 1 dose. recon soln Drink 1 bottle as directed for dose 1 and 1 bottle as directed for dose 2. omeprazole OTC Take 1 tablet 90 tablet 3 03/21/20 D iscontinued (PriLOSEC OTC) 20 MG (20 mg total) by 20 02 0 (Reorder) EC tablet mouth daily for 90 days. lubiprostone Take 1 capsule 60 capsule 3 03/28/20 E xpired (AMITIZA) 24 MCG (24 mcg total) 20 020 capsuleIndications: by mouth 2 (two) Constipation due to times a day with opioid therapy meals for 30 days. omeprazole OTC Take 1 tablet 90 tablet 3 04/23/20 D iscontinued (PriLOSEC OTC) 20 MG (20 mg total) by 20 02 0 EC mouth daily for tabletIndications: 90 days. Gastroesophageal reflux disease without esophagitis omeprazole OTC Take 2 tablets 90 tablet 3 04/23/20 Discontinued (PriLOSEC OTC) 20 MG (40 mg total) by 20 02 0 (Reorder) EC mouth daily for tabletIndications: 90 days. Gastroesophageal reflux disease without esophagitis omeprazole OTC Take 2 tablets 90 tablet 3 04/25/20 Discontinued (PriLOSEC OTC) 20 MG (40 mg total) by 20 02 0 EC mouth daily for tabletIndications: 90 days. Gastroesophageal reflux disease without esophagitis Active Problems Problem Noted Date Gastroesophageal reflux disease without esophagitis Overweight 04/23/2020 Drug-induced constipation 03/21/2020 Grade II hemorrhoids 03/21/2020 Abdominal adhesions 03/21/2020 Encounters Date Type Specialty Care Team Description 05/04/2020 Travel 05/03/2020 Hospital Encounter Radiology Rashi Rosenbaum Radic ulopathy, lumbar MD [place] region 05/03/2020 Transcribe Orders Radiology Rashi Rosenbaum Radicu lopathy, lumbar MD [place] region (Primary Dx) 05/03/2020 Community Orders ADMIN Rashi Rosenbaum MD 05/02/2020 Travel 04/30/2020 Travel 04/25/2020 Refill Gastroenterology [place]ld[place]onso, Gastroesoph ageal reflux Neeharika Hernandes, disease angélica matta MD esophagitis 04/25/2020 Orders Only Gastroenterology [place], Gastroesoph ageal reflux Neeharika Hernandes, disease angélica matta MD esophagitis 04/23/2020 Office Visit Gastroenterology [place], Drug-induce d constipation (Primary Dx); Rosmery Hernandes, Gastroesoph ageal reflux disease without esophagitis; Overweight 04/23/2020 Travel 03/21/2020 Lab Lab [place], Constipation du e to Rosmery Hernandes, opioid ther apy 03/21/2020 Office Visit Gastroenterology [place], Constipatio n due to opioid therapy (Primary Dx); Rosmery Heranndes, Grade II he morrhoids; Abdominal adhes ions 03/21/2020 Travel 03/14/2020 Travel after 06/15/2019 Surgical History Surgery Date Site/Laterality Comments HYSTERECTOMY SECTION 1997, 2004 APPENDECTOMY KNEE SURGERY Left ANKLE SURGERY 06/15/1984 - 06/14/1985 Left CHOLECYSTECTOMY LAMINOTOMY, LUMBAR 12/09/2018 Spine Lumbar/Left Procedure: LEFT L3 - L4 FAR LATERAL KHAN S PEDICULAR DISC R ESECTION W / EMG, SEP, MEP MONITORING; Bennett geon: Rashi Rosenbaum MD; Location: [facility]; Service: Neurosurgery; L aterality: Left; Medical devices from this surgery are in t he Implants section . Medical History Medical History Date Comments GERD (gastroesophageal reflux disease) Anxiety Depression Claustrophobia H/O fall Psoriatic arthritis (HCC) Anemia H/O Ankylosing spondylitis (HCC) PONV (postoperative nausea and vomiting) Pt...PONV, Family....Mother and Father have PONV also Ambulates with cane At risk for falls back pain Social History Tobacco Use Types Packs/Day Years Used Date Never Smoker Smokeless Tobacco: Never Used Alcohol Use Drinks/Week oz/Week Comments Not Currently Sex Assigned at Date Recorded Female 03/18/2020 11:12 PM CDT Last Filed Vital Signs Vital Sign Reading Time Taken Comments Blood Pressure 145/93 04/23/2020 10:57 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 Pulse 68 04/23/2020 10:57 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 Temperature - - Respiratory Rate - - Oxygen Saturation 97% 04/23/2020 10:57 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 Inhaled Oxygen Concentration - - Weight 79.7 kg (175 lb 12.8 oz) 04/23/2020 10:57 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 Height 162.6 cm (5' 4") 04/23/2020 10:57 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 Body Mass Index 30.18 04/23/2020 10:57 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 Plan of Treatment Date Type Specialty Care Team Description 07/24/2020 Telemedicine Gastroenterology Ildefonso Radhacarri Hernandes MD [address] [facility] [address] [place] [id number] 84 [phone] Health Maintenance Due Date Last Done Comments COVID-19 VACCINE (#1) 1990 CERVICAL CANCER SCREENING 1995 INFLUENZA VACCINE 01/14/2020 Implants Implanted Type Area Intensive Care Unit Nurse Device Shelf Model / Identifier Expiration Serial / Date Lot Bipolar Forceps [id number] Accessories N/A: N/A 05/14/2023 [id number] / Implanted: Qty: 1 on 12/09/2018 by Rashi Cardona MD at [facility] / [id number] Procedures Procedure Name Priority Date/Time Associated Diagnosis Comme nts MRI LUMBAR SPINE WO Routine 05/04/2020 1:35 Radiculopathy, melanie mbar Results for this CONTRAST PM ELECTROSTATIC PAINT OPERATOR region procedure are i n the results section. XR LUMBAR SPINE Routine 05/03/2020 12:22 Radiculopathy, lumbar Results for this COMPLETE W BENDING PM ELECTROSTATIC PAINT OPERATOR region procedure are in the results section. MAGNESIUM LEVEL Routine 03/21/2020 2:55 Constipation due to R esults for this PM CDT opioid therapy procedure are in the results section. BASIC METABOLIC Routine 03/21/2020 2:55 Constipation due to R esults for this PANEL PM CDT opioid therapy procedure are in the results section. after 06/15/2019 Results MRI Lumbar Spine Wo Contrast (05/04/2020 1:35 PM ELECTROSTATIC PAINT OPERATOR) Specimen Narrative Performed At This result has an attachment that is no t available. EXAMINATION: MRI LUMBAR SPINE WO CONTRAST [facility] CLINICAL HISTORY: M54.16 Radiculopathy lumbar shalini on, LUMBAR RADICULOPATHY COMPARISON: Lumbar spine radiographs dated May 03, 2020 TECHNIQUE: Multiplanar MRI imaging without IV Gadolinium was pe rformed. FINDINGS: There is normal lumbar lordosis and alig nment. Vertebral bodies are preserved. Bone marrow is unremarkable with no evidence of acute fracture or suspicious marrow-replacing lesion. Intervertebral disc s paces are relatively preserved. The distal spinal cord appears unremarkable. The conus med ullaris terminates at the L2 level and appears unremarkable. The cauda equina is unremarkable. L1-2: Unremarkable. 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 L2-3: Unremarkable L3-4: Mild disc bulge with superimposed left foraminal shallow disc protrusion and annular fissure causing minimal left foraminal narrowing and contacting the exiting left L3 nerve root. There is no canal stenosis. The right foramen is patent. L4-5: Mild disc bulge with central small disc protrusion. Bilateral facet arthropathy. No canal stenosis and no foraminal narrowing. L5-S1: Unremarkable. Visualized paraspinal soft tissues are unremarkable. IMPRESSION: Mild disc changes at L3-L4 and L4-L5 lev els with no significant lumbar canal stenosis or foraminal compromise. [id number] Procedure Note Hm Interface, Radiology Results - 05/04/2020 6:03 PM ELECTROSTATIC PAINT OPERATOR EXAMINATION: MRI LUMBAR SPINE WO CONTRAST CLINICAL HISTORY: M54.16 Radiculopathy lumbar region, LUMBAR RADICULOPATHY COMPARISON: Lumbar spine radiographs da mitali May 03, 2020 TECHNIQUE: Multiplanar MRI imaging without IV Gado linium was performed. FINDINGS: There is normal lumbar lordosis and alig nment. Vertebral bodies are preserved. Bone marrow is unremarkable with no evidence of acute fracture or suspicious marrow-replacing lesion. Intervertebral disc spaces are relatively preserved. The distal spinal cord appears unremarkable. The conus med ullaris terminates at the L2 level and appears unremarkable. The cauda equina is unremarkable. L1-2: Unremarkable. 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 L2-3: Unremarkable L3-4: Mild disc bulge with superimposed left foraminal shallow disc protrusion and annular fissure causing minimal left foraminal narrowing and contacting the exiting left L3 nerve root. There is no canal stenosis. The right foramen is patent. L4-5: Mild disc bulge with central small disc protrusion. Bilateral facet arthropathy. No canal stenosis and no foraminal narrowing. L5-S1: Unremarkable. Visualized paraspinal soft tissues are u nremarkable. IMPRESSION: Mild disc changes at L3-L4 and L4-L5 lev els with no significant lumbar canal stenosis or foraminal compromise. [id number] Performing Organization Address City/State/ZIP Code Phon e Number [facility] [id number] [place] [address] XR Lumbar Spine Complete W Flex and Ext (05/03/2020 12:22 PM ELECTROSTATIC PAINT OPERATOR) Specimen Narrative Performed At EXAMINATION: XR LUMBAR SPINE COMPLETE W FLEX & EXTEND HM [facility] CLINICAL HISTORY: M54.16 Radiculopathy lumbar region COMPARISON: External MRI of the lumbar spine dated 11/26/2018. IMPRESSION: 6 views of the lumbar spine are interpreted including dynamic lateral grafts. There are 5 lumbar type vertebrae. Vertebral heights are preserved. No displaced fracture aggressive bone lesion is seen. There is moderate to prominent loss of disc height at L1-2 which is developmental. Alignment is preserved. There is no significant change in alignment on dynamic lateral radiographs. [facility]-[id number] Procedure Note Hm Interface, Radiology Results Incoming - 05/03/2020 12:41 PM ELECTROSTATIC PAINT OPERATOR EXAMINATION: XR LUMBAR SPINE COMPLETE W FLEX & EXTEND CLINICAL HISTORY: M54.16 Radiculopathy lumbar region COMPARISON: External MRI of the lumbar spine dated 11/26/2018. IMPRESSION: 6 views of the lumbar spine are interpre mitali including dynamic lateral grafts. There are 5 lumbar type vertebrae. Vertebral heights are preserved. No disp laced fracture aggressive bone lesion is seen. There is moderate to prominent loss of d isc height at L1-2 which is developmental. Alignment is preserved. There is no significant change in alignm ent on dynamic lateral radiographs. [facility]-[id number] Performing Organization Address City/[facility]/ZIP Code Phon e Number [facility] [id number] [place] [address] Magnesium level (03/21/2020 2:55 PM CDT) Pathologist [facility] nature Magnesium 1.8 1.5 - 2.5 mg/dL [facility] [place] Specimen Blood Resulting Agency Comment Performing Organization Information: Site ID: [id number] Address: [address] [place] [phone] Director: Jonny Boyd Performing Organization Address City/State/ZIP Code Phon e Number [facility] [address] [address] Basic metabolic panel (03/21/2020 2:55 PM CDT) Glucose 118 (H) 65 - 99 [facility] Comment: mg/dL [place] Fasting reference interval For someone without known diabetes, a glucose value between 100 and 125 mg/dL is consistent with prediabetes and should be confirmed with a follow-up test. BUN 11 7 - 25 mg/dL [facility] [place] Creatinine 0.64 0.50 - 1.10 [facility] mg/dL [place] EGFR Non-Afr. 107 > OR = 60 [facility] Japanese mL/min/1.73m [place] 2 EGFR 124 > OR = 60 [facility] Japanese mL/min/1.73m [place] 2 BUN/creatinine NOT APPLICABLE 6 - 22 [facility] ratio (calc) [place] Sodium 139 135 - 146 [facility] mmol/L [place] Potassium 3.9 3.5 - 5.3 [facility] mmol/L [place] Chloride 104 98 - 110 [facility] mmol/L [place] CO2 28 20 - 32 [facility] mmol/L [place] Calcium 8.6 8.6 - 10.2 [facility] mg/dL [place] Specimen Blood Resulting Agency Comment Performing Organization Information: Site ID: [id number] Name: [facility] Cristina childers Address: [address] [place] [phone] Director: Jonny Boyd Performing Organization Address City/State/ZIP Code Phon e Number [employer] [facility] [address] [phone] after 06/15/2019 Advance Directives For more information, please contact: [phone] Type Date Recorded Patient Rotary Drum Dyer Explanati on Advance Directives, Living 05/26/2019 1:30 PM Will and Medical Power of Import Export Coordinator Code Status Date Activated Date Inactivated Comments Full Code 12/09/2018 1:31 PM 12/10/2018 3:22 PM Code Status decision reached by: Patient
--- OUTSIDE RECORDS SUMMARY | 2020-06-15 10:38 | XMS REPORT | Continuity of Care Document ---
:1975 Author Organization [employer] Care Team Providers Name Role Phone [employer] Unavailable Un available Problems Problem Status Onset Classification Date Comments Sourc e Date Reported L40.50 - Active 05/29/20 OPID "ARTHROPATHIC [address] [place] PSORIASIS, UNSPEC Bradycardia Active 07/14/19 Problem 02/08/2019 Data Medi glenn (disorder) 15 migrated Group,2.1 6. from GE 840.1.1138 8 Centricity 3.3.615.1 35 on 11/11/14. , MARSHALL Meneses, OPID [place] Carpal tunnel Active 07/14/19 Problem 02/08/2019 Data Me dical syndrome 15 migrated Group,2.16 . (disorder) from GE 840.1.113 88 Centricity 3.3.615.1 35 on 11/11/14. , MARSHALL Meneses OPID [place] Discharge 02/22/20 02/24/2014 Diagnosis: Cyst, 14 Sirena theast ovarian LEFT LOWER Active 02/22/20 ABDOMINAL PAIN 14 [place] 616.0 - Active 01/28/20 OPID CERVICITIS 723.4 14 [place] - BRACHIAL NEUR Allergic rhinitis Active 12/16/19 Problem 02/08/2019 Data M H Medical (disorder) 14 migrated Group,2.1 6. from GE 840.1.1138 8 Cent[place] 3.3.615.1 35 on 11/11/14. , MARSHALL Meneses, OPID [place] Elevated Active 12/16/19 Problem 02/08/2019 Data Medica l blood-pressure 14 migrated Group ,2.16. reading without from GE 840. 1.76180 diagnosis of Centricity 3.3.61 5.135 hypertension on 11/11/14. , O PID (finding) [place] PSORIATIC Active 11/10/19 ARTHRITIS FLARE 14 [place] CHEST PAIN Active 11/10/19 14 [place] ATYPICAL CHEST Active 11/10/19 PAIN 14 [place] Muscle pain Active 05/16/20 Problem 02/08/2019 Data Medi glenn (finding) 13 migrated Group,2.16 . from GE 840.1.1138 8 Centricity 3.3.615.1 35 on 11/11/14. , MARSHALL Meneses, OPID [place] Hyperlipidemia Active 02/10/20 Problem 02/08/2019 Data [facility] edical (disorder) 13 migrated Group,2.1 6. from GE 840.1.1138 8 Centricity 3.3.615.1 35 on 11/11/14. , MARSHALL Meneses, OPID [place] Peripheral edema Active 11/19/19 Problem 02/08/2019 Data Medical (disorder) 13 migrated Group,2.1 6. from GE 840.1.1138 8 Centricity 3.3.615.1 35 on 11/11/14. , MARSHALL Meneses, OPID [place] Cobalamin Active 10/28/19 Problem 02/08/2019 Data Medica l deficiency 13 migrated Group,2.1 6. (disorder) from GE 840.1.113 88 Centricity 3.3.615.1 35 on 11/11/14. , MARSHALL Meneses, OPID [place] Vitamin D Active 10/28/19 Problem 02/08/2019 Data Medica l deficiency 13 migrated Group,2.1 6. (disorder) from GE 840.1.113 88 Centricity 3.3.615.1 35 on 11/11/14. , MARSHALL Meneses, OPID [place] Anxiety disorder Active 10/27/19 Problem 02/08/2019 Data Medical (disorder) 13 migrated Group,2.1 6. from GE 840.1.1138 8 Centricity 3.3.615.1 35 on 11/11/14. , MARSHALL Meneses, OPID [place] Chronic pain Active 10/27/19 Problem 02/08/2019 Data Med ical syndrome 13 migrated Group,2.16 . (disorder) from GE 840.1.113 88 Centricity 3.3.615.1 35 on 11/11/14. , MARSHALL Meneses, OPID [place] Elevated levels Active 10/27/19 Problem 02/08/2019 Data [facility] of transaminase & 13 migrated Gr oup,2.16. lactic acid from GE 840.1.11 388 dehydrogenase Centricity 3.3.6 15.135 (finding) on 11/11/14. , MARSHALL Meneses, [place] Fatigue (finding) Active 10/27/19 Problem 02/08/2019 Data H Medical 13 migrated Group,2.16 . from GE 840.1.1138 8 Centricity 3.3.615.1 35 on 11/11/14. , MARSHALL Meneses, OPID [place] Insomnia Active 10/27/19 Problem 02/08/2019 Data Medica l (disorder) 13 migrated Group,2.1 6. from GE 840.1.1138 8 Centricity 3.3.615.1 35 on 11/11/14. , MARSHALL Meneses, OPID [place] Migraine Active 10/27/19 Problem 02/08/2019 Data Medica l (disorder) 13 migrated Group,2.1 6. from GE 840.1.1138 8 Centricity 3.3.615.1 35 on 11/11/14. , MARSHALL Meneses, OPID [place] Psoriasis with Active 10/27/19 Problem 02/08/2019 Data [facility] edical arthropathy 13 migrated Group,2. 16. (disorder) from GE 840.1.113 88 Centricity 3.3.615.1 35 on 11/11/14. 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 16. (disorder) 840.1.113 88 3.3.615.13 5 , MARSHALL Meneses, [place], M H OPID [place] Cyst of ovary Resolved Problem 02/08/2019 MH Me dical (disorder) Group,2.1 6. 840.1.1138 8 3.3.615.13 5 , MARSHALL Meneses, [place], M H MARSHALL Milagros Rheumatoid Active Problem 11/13/2013 arthritis [place] (disorder) PSORIATIC Active ARTHROPATHY [place] CHEST PAIN NOS Active [facility] Medications Medication Details Route Status Patient Ordering [...] 4 mg, Route: Inactive IVP, Drug 2013 [facility] form: INJ, ONCE, Dosing Weight 75, kg, Priority: STAT, Start date: 02/21/14 11:45:00, Stop date: 02/21/14 11:45:00 Acetaminophen 325 MG 1 tab, Inactive / Hydrocodone Route: PO, 2013 [facility] st Bitartrate 5 MG Oral Dosing Tablet Weight 75, kg, ONCE, STAT, Start date: 02/21/14 11:45:00, Stop date: 02/21/14 11:45:00 Morphine 4 mg, Route: Inactive IVP, Drug 2013 [facility] form: INJ, ONCE, Dosing Weight 75, kg, Priority: STAT, Start date: 02/21/14 10:11:00, Stop date: 02/21/14 10:11:00 Morphine 4 mg, Route: Inactive IVP, Drug 2013 [facility] form: INJ, ONCE, Dosing Weight 75, kg, Priority: STAT, Start date: 02/21/14 9:00:00, Stop date: 02/21/14 9:00:00 Zofran 4 mg, Route: Inactive IVP, Drug 2013 [facility] form: INJ, ONCE, Dosing Weight 75, kg, Priority: STAT, Start date: 02/21/14 8:52:00, Stop date: 02/21/14 8:52:00 Sodium Chloride 1,000 mL, Inactive 0.154 MEQ/ML 1,000 ml/hr, 2013 [facility] ast Injectable Solution Infuse Over: 1 hr, Route: IV, ONCE, Priority: STAT, Dosing Weight 75 kg, Start date: 02/21/14 8:52:00, Duration: 1 doses or times, Stop date: 02/21/14 8:52:00 Lyrica Notes: (Same No Longer as: Lyrica) Active 2013 [facility] Methylprednisolone Notes: (Same Inactive as:Solu-MEDR 2013 [facility] OL, A-Methapred) Demerol HCl Notes: (Same No Longer As: Demerol) Active 2013 [facility] Flexeril Notes: (Same No Longer As: Active 2013 [facility] Flexeril) Zanaflex Notes: (Same Inactive As: 2013 [facility] Zanaflex) Celebrex Notes: No Longer NSAID. Active 2013 [facility] Please check indication. Not for seizure. (Same As: CeleBREX) Enoxaparin Notes: (Same No Longer as: Lovenox) Active 2013 [facility] Demerol HCl Notes: (Same No Longer As: Demerol) Active 2013 [facility] Acetaminophen 325 MG Notes: Do No Longer / Hydrocodone not exceed Active 2013 [facility] Bitartrate 10 MG 4gm/day of Oral Tablet acetaminophe n. (Same as: [place] 325/10) Zanaflex 4 mg, PO, On Hold BID, 0 2013 [facility] Refill(s) Celebrex Daily, 0 On Hold Refill(s) 2013 [facility] Acetaminophen 325 MG 1 tab, PO, On Hold / Hydrocodone Q6H, as 2013 [facility] Bitartrate 10 MG needed for Oral Tablet pain, 0 Refill(s) Methotrexate 17.5 mg, PO, On Hold qWeek, 0 2013 [facility] Refill(s) nitroglycerin 0.4 mg Notes: (Same No Longer 10/14 sublingual tablet as:Nitroquic Active 2013 [place], Nitrostat) "Do Not Crush" Sublingual tablet atropine 0.5 mg, 5 No Longer mL, Route: Active 2013 [facility] IVP, Drug form: INJ, PRN, PRN Bradycardia, Start date: 11/09/13 20:46:00, Duration: 30 day, Stop date: 12/09/13 20:45:00 Ambaziza Notes: (Same No Longer As: Ambien) Active 2013 [facility] Morphine Notes: (Same No Longer as:MORPhine Active 2013 [facility] Sulfate) Allergies, Adverse Reactions, Alerts Substance Category Reaction Severity Reaction Status Date Comments S ource type Reported HYDROmorpho Assertion Drug Active Data 2.16.84 ne<sup>1</s allergy 3 migrated 0.1 .113 up> from valuescope 883.3.6 Centricity 15.13 5 on 10/12/14. Originally documented as DILAUDID. severe headache, vomiting Toradol Assertion Drug Active 2.16.8 4 allergy 0.1.113 883.3.6 15.135 Dilaudid Assertion Drug Active 2.16. 84 allergy 0.1.113 883.3.6 15.135 Immunizations Immunization Date Given Site Status Last Comments Source Updated Hx influenza 03/02/2013 completed GE Result Med ical vaccine-unspecifi Comment: Gr oup,2.16. ed<sup>1</sup> received. 840.1 .05674 Migrated from 3.3.61 5.135 OBS ; Data , OPI D migrated from Jac n GE Centricity on 07/17/2015. Results Order Name Results Value Reference Date Interpretation Comments Sirena rce Range CHEM PANEL Lipase Lvl 50 73 - 393 02/21 [facility] CHEM PANEL A/G Ratio 1.2 0.7 - 1.6 02/21 [facility] CHEM PANEL Globulin 3.5 2.0 - 4.0 02/21 [facility] CHEM PANEL B/C Ratio 16 6 - 25 02/21 [facility] CHEM PANEL AGAP 13.4 10.0 - 02/21 20.0 /2013 [facility] CHEM PANEL eGFR 108 02/21 <sup>1</sup>R [...] PANEL Total 7.8 6.4 - 8.4 02/21 [facility] CHEM PANEL Bili Total 0.3 0.2 - 1.3 02/21 [facility] CHEM PANEL AST 15 0 - 37 02/21 [facility] CHEM PANEL Calcium Lvl 8.8 8.5 - 10.5 02/21 [facility] CHEM PANEL Sodium Lvl 137 135 - 145 02/21 [facility] CHEM PANEL Chloride Lvl 103 95 - 109 02/21 [facility] CHEM PANEL Potassium 3.4 3.5 - 5.1 02/21 Lvl [facility] CHEM PANEL CO2 24 24 - 32 02/21 [facility] CHEM PANEL Creatinine 0.7 0.5 - 1.4 02/21 [facility] CHEM PANEL Glucose Lvl 107 70 - 99 02/21 <sup>2</sup>I nterpretive [facility] Data: Adult reference range values reflect the clinical guidelines
of the [place] [employer]. CHEM PANEL Alk Phos 85 39 - 136 02/21 [facility] CHEM PANEL BUN 11 7 - 22 02/21 [facility] CHEM PANEL Albumin Lvl 4.3 3.5 - 5.0 02/21 [facility] CHEM PANEL ALT 15 0 - 65 02/21 [facility] HEMATOLOGY PT 12.9 12.0 - 02/21 14.7 /2013 [facility] HEMATOLOGY PTT 38.8 22.9 - 02/21 <sup>4</sup>I 35.8 /2013 nterpretive [facility] Data: Heparin Therapeutic Range: 57 - 92 Seconds HEMATOLOGY INR 0.97 0.85 - 02/21 <sup>3</sup>I 1.17 nterpretive [facility] Data: RECOMMENDED RANGES FOR PROTIME INR:
2.0-3.0 for most medical and surgical thromboemboli c states.
2.5-3.5 for artificial heart valves and recurrent embolism.<br/ >
INR SHOULD BE USED ONLY FOR PATIENTS ON STABLE ANTICOAGULANT THERAPY. HEMATOLOGY MPV 8.8 7.4 - 10.4 02/21 /2013 [facility] HEMATOLOGY MCHC 33.0 32.0 - 02/21 MH 36.0 /2013 [facility] HEMATOLOGY RDW 13.6 11.5 - 02/21 14.5 /2013 [facility] HEMATOLOGY Platelet 216 133 - 450 02/21 [facility] HEMATOLOGY MCH 29.8 27.0 - 02/21 31.0 /2013 [facility] HEMATOLOGY MCV 90.1 80.0 - 02/21 98.0 /2013 [facility] HEMATOLOGY Hgb 13.0 12.0 - 02/21 16.0 /2013 [facility] HEMATOLOGY Hct 39.4 36.0 - 02/21 48.0 /2013 [facility] HEMATOLOGY RBC 4.37 4.20 - 02/21 MH 5.40 /2013 [facility] HEMATOLOGY WBC 6.5 3.7 - 10.4 02/21 /2013 [facility] HEMATOLOGY Lymphocytes 1.4 1.0 - 5.5 02/21 # /2013 [facility] HEMATOLOGY Segs-Bands # 4.5 1.5 - 8.1 02/21 [facility] HEMATOLOGY Monocytes 7.9 2.0 - 12.0 02/21 [facility] HEMATOLOGY Eosinophils 0.7 0.0 - 4.0 02/21 [facility] HEMATOLOGY Segs 69.3 45.0 - 02/21 MH 75.0 /2013 [facility] HEMATOLOGY Lymphocytes 21.4 20.0 - 02/21 MH 40.0 /2013 [facility] HEMATOLOGY Basophils 0.7 0.0 - 1.0 02/21 [facility] HEMATOLOGY Monocytes # 0.5 0.0 - 0.8 02/21 [facility] URINE AND UA WBC 0-2 /HPF None Seen 02/21 STOOL /HPF /2013 [facility] URINE AND UA RBC 3-5 /HPF 0 - 2 02/21 STOOL /2013 [place] URINE AND UA Bacteria Few /HPF None Seen 02/21 STOOL /HPF /2013 [facility] URINE AND UA Mucus None Seen None Seen 02/21 STOOL (02/21/14 8:50 AM) [facility] st URINE AND UA Sq Epi Occasional Few /LPF 02/21 STOOL /LPF /2013 [facility] URINE AND Micro? Performed 02/21 STOOL (02/21/14 8:50 AM) [facility] st URINE AND UA Leuk Est Negative Negative 02/21 STOOL (02/21/14 8:50 AM) [facility] st URINE AND UA Nitrite Negative Negative 02/21 STOOL (02/21/14 8:50 AM) [facility] st URINE AND UA Ketones Negative Negative 02/21 STOOL *NA* /2013 [facility] (02/21/14 8:50 AM) URINE AND UA Color Yellow Yellow 02/21 STOOL *NA* /2013 [facility] (02/21/14 8:50 AM) URINE AND UA Spec Grav 1.010 <=1.030 02/21 STOOL [facility] URINE AND UA pH 6.0 5.0 - 8.0 02/21 STOOL [facility] URINE AND UA Glucose Negative Negative 02/21 STOOL (02/21/14 8:50 AM) [facility] URINE AND UA Protein Negative Negative 02/21 STOOL (02/21/14 8:50 AM) [facility] URINE AND UA Bili Negative Negative 02/21 STOOL *NA* /2013 [facility] (02/21/14 8:50 AM) URINE AND UA Blood Trace Negative 02/21 STOOL *ABN* /2013 [facility] (02/21/14 8:50 AM) URINE AND UA 0.2 0.1 - 1.0 02/21 STOOL Urobilinogen /2013 [facility] URINE AND UA Turbidity Clear Clear 02/21 STOOL (02/21/14 8:50 AM) [facility] URINE CHEM U Preg Negative Negative 02/21 (02/21/14 8:50 AM) [facility] CHEM PANEL eGFR 109 11/10 <sup>1</sup>R esult [facility] Comment: The eGFR is calculated using [...] Creatinine 0.7 0.5 - 1.4 11/10 Lvl [facility] HEMATOLOGY Sed Rate 13 0 - 20 11/10 [facility] HEMATOLOGY Platelet 231 133 - 450 11/10 [facility] HEMATOLOGY PTT 38.9 22.9 - 11/10 <sup>3</sup>I 35.8 nterpretive [facility] Data: Heparin Therapeutic Range: 57 - 92 Seconds HEMATOLOGY D-Dimer 0.22 11/10 <sup>2</sup>I nterpretive [facility] Data: In DIC, quantitative D-Dimer is generally greater than
0.66 ug/mL FEU. Values of quantitative D-Dimer less than
0.40 ug/mL FEU have been reported to be associated with a low
proba bility of deep vein thrombosis/pu lmonary embolism.<br/ >This test alone should not be used to rule out DVT/PE. CARDIAC CK MB 0.6 0.5 - 3.6 11/10 ENZYMES /2013 [facility] CARDIAC Troponin-I 0.02 0.00 - 11/10 ENZYMES 0.40 /2013 [facility] Pathology Reports No Data Provided for This Section Diagnostic Reports Report Value Date Source Spine cervical comp w EXAM: XR CERVICAL SPINE 7 VIEWS 09/12/2016 MARSHALL Gideon obl-flx/ext DX DATE: 09/12/2016 12:37 PM CDT [...] XR BILATERAL HAND 2 VIEWS 09/12/2016 OPID [place] Bilateral DX DATE: 09/12/2016 12:38 PM CDT [...] XR LUMBAR SPINE 2 VIEWS 09/12/2016 OPID Gideon views DX DATE: 09/12/2016 12:37 PM CDT [...] Bilateral shoulder, 3 views. 05/30/2015 H OPID [place] Bilateral DX HISTORY: Arthritis. COMPARISON: Right shoulder radiography dated . RIGHT SHOULDER: No fracture or dislocation. No arthritic change is seen. Osseous and soft tissue structures appear normal. LEFT SHOULDER: No fracture or dislocation. No arthritic change is seen. Osseous and soft tissue structures appear normal. SL: 15 Spine lumbar 2 or 3 Lumbar spine, 3 views. 05/30/2015 OP ID [place] views DX HISTORY: Arthritis. COMPARISON: CT abdomen/pelvis [...] 3 views Bilateral hands, 3 views. 05/30/2015 OPI D [place] Bilateral DX HISTORY: Arthritis. COMPARISON: Bilateral wrist [...] or 3 CERVICAL SPINE, 3 V[facility]WS [facility]/30/2015 [facility] [place] view DX HISTORY: Arthritis. COMPARISON: None available. FINDINGS: No fracture is seen. Vertebral body and disc spa ce heights maintained. Normal alignment. No prevertebral soft tissue sw elling. SL: 15 Pelvis w pelvis PELVIC ULTRASOUND: 02/21/2014 [facility] doppler US Transabdominal evaluation of the pelvis [...] IV CT ABDOMEN PELVIS WITH CONTRAST: 02/21/2014 [facility] contrast CT TECHNIQUE: Helical images were done [...] series Examination: Right shoulder, 3 views 11/10/2013 [facility] History: Pain of unknown origin Comparison: None. Findings: Multiple views of the right shoulder show no acute bony fracture, joint dislocation, or suspicious osseous lesion. The soft tissues are unremarkable. IMPRESSION: No significant abnormality of the ri t shoulder. SL: 16 Chest 2 views Examination: Chest x-ray, 2 views 11/10/2013 [facility] History: Chest pain Comparison: None. Findings: The lungs are flex r and without focal consolidation. The cardiomediastinal silhouette is within normal limits. No pleural effusion or pneumothorax is seen. The osseous structures are without focal abnormality. IMPRESSION: No acute cardiopulmonary disease. SL: 16 Ext Upper Venous Right upper extremity venous Doppler ultrasound, November 09, 2013 09:02:00 PM 11/09/2013 [facility] Doppler [facility] US CLINICAL HISTORY: r/o DVT ; Pain, [...] Comments Source Diastolic (mm Hg) 125 02/21/[address] Systolic (mm Hg) 158 02/21/2014 Dianne [...] 02/21/[address] Heart Rate 75 02/21/2014 [facility] Height 162.56 cm 02/21/2014 [facility] BMI Calculated 28.38 02/21/2014 [facility] Weight 75 02/21/2014 [place] Heart Rate 87 11/11/2013 [facility] Temperature Oral (F) 98.1 F 11/11/2013 Sout [...] 11/10/2013 [place] BMI Calculated 29.24 11/10/2013 [place] Height 162.56 cm 11/10/2013 [place] Weight 77.273 11/10/2013 [facility] Encounters Location Location Encounter Encounter Reason Attending ADM [place] Stat us Source Details Type Number For Provider Date Date Visit OD [id number] 714.9 - JORY 10/21 Active O PID 0 INFLAMM MURO [place] POLYART Outpatient [id number] SYMMETRI JORY 11/23 Active [place] 0 C MURO /2012 [facility] Inpatient [id number] Mendez 11/10 11/11 Gideon 8 Grant /2013 [facility] [place] [id number] [place] 02/21 02/21 [facility] Emergency 2 [place] /2013 [facility] Outpatient [id number] YONY 02/20 Active [facility] Outpt Diag [id number] Chen 05/30 05/31 M H OPID Outpatient Services 4 [facility] Imaging [place] Outpatient [id number] AKUVI 05/27 Active [facility] Damon GBITO Outpatient [id number] AKUVI 05/27 [id number] SAV 06/18 Active [facility] 3 RICHARD [facility] Outpt Diag [id number] Chen 09/12 09/13 M H OPID [facility] 5 [facility] Outpatient [id number] SAV 06/21 Active [facility] 4 RICHARD [facility] Ambulatory [id number] Sav 06/21 06/21 M H Primary Pre-Reg 4 [facility] [id number] 07/21 07/22 2.16.840 [facility] .1.1138 8 Specialty 3.3.615 . Pharmacy 135 [facility] Outpatient [id number] HIGH JORY [place] [address] [place] [facility] Procedure Code Date Perfomer Comments Source Appendectomy [id number] Medical Group,07.31.83 [id number]. 615.135, MARSHALL Meneses,[facility], OPID [place] Cholecystectomy [id number] Medica l Group,07.31.83 [id number]. 615.135, MARSHALL Meneses,[facility], OPID [place] Hysterectomy [id number] Medical Group,07.31.83 [id number]. 615.135, MARSHALL Meneses,[facility], MARSHALL [place] Operative procedure [id number] [facility] dical on knee Group,2.16.84 [id number]. 615.135, MARSHALL Meneses,[facility], MARSHALL [place] Assessment and Plan No Data Provided for This Section Plan of Care No Data Provided for This Section Social History Social History Date Source Social History TypeResponse 11/10/2013 2.16.840.1.1 [id number] Alcohol Past Smoking Status Former smoker; Exposure to Tobacco Smoke None; Cigarette Smoking Last 365 Days No; Reg Smoking Cessation Counseling Yes entered on: 05/27/16 Social History TypeResponse 11/10/2013 [place] Fofana rougold Alcohol Past Smoking Status Former smoker; Exposure to Tobacco Smoke None; Cigarette Smoking Last 365 Days No; Reg Smoking Cessation Counseling Yes entered on: 05/27/16 Social History TypeResponse 11/10/2013 [facility] Alcohol Use: Past Smoking Status Former smoker, [...]
--- OUTSIDE RECORDS SUMMARY | 2020-06-15 10:39 | XMS REPORT | Continuity of Care Document ---
:1975 Author Organization [facility] t Address [address] [place] [address] Care Team Providers Name Role Phone Kerrie Primary Care Physician DEWAYNE Attending Clinician Unavailable Cecilio Fregoso MD Attending Clinician TAIWO Attending Clinician Unavailable HAROON Attending Clinician Unavailable Karen Aquino Attending Clinician EH Attending Clinician Unavailable Daja Hoang Attending Clinician JOSE Attending Clinician Unavailable ISI Attending Clinician Unavailable Kaleb Attending Clinician Narayan Burns Attending Clinician Narayan Burns Admitting Clinician Payers Payer Name Policy Type Policy Effective Date Expiration Date Sour ce Number AETNAAETNA [id number] [facility] Buddhist AMELIA/[id number] /16/2006- [facility] Problems Condition Condition Condition Status Onset Resolution Last Treating Co mments Source Name Details Category Date Date Treatment Clinician Date Gastroesop Gastroesop Disease Active 2019- H [facility] hageal hageal 06-23 Methodi reflux reflux 00:00: st disease disease 00 without without esophagiti esophagiti s s Overweight Overweight Disease Active 2019- [place] 06-23 Methodi 00:00: st 00 Drug-induc Drug-induc Disease Active 2019- H [facility] ed ed 0-07 Methodi constipati constipati 00:00: st on on 00 Grade II Grade II Disease Active 2019-06 [place] hemorrhoid hemorrhoid 0-07 Me thodi s s 00:00: st 00 Abdominal Abdominal Disease Active 2019-06 Adelina ston adhesions adhesions 0-07 Meth edgar 00:00: st 00 L40.50 - Diagnosis Active 2014-062015-05-30 M emoria "ARTHROPAT 07-30 09:59:00 l HIC L40.50 - 00:01: Jac garcia PSORIASIS, "ARTHROPAT 00 UNSPEC HIC PSORIASIS, UNSPEC Active 05/29/2015 OPID Milagros Bradycardi Problem Active 2019-02-08 M emoria a 07-14 14:45:28 l (disorder) 00:00: Jac garcia Bradycardi 00 a (disorder) Active 07/14/2014 Problem 02/08/2019 Data migrated from [email or web address] on 11/11/14. Medical Group,[id number], MARSHALL Meneses, MARSHALL [place] Carpal Problem Active 2019-02-08 Memor ia tunnel 07-14 14:45:28 l syndrome Carpal 00:00: Jac garcia (disorder) tunnel 00 syndrome (disorder) Active 07/14/2014 Problem 02/08/2019 Data migrated from [email or web address] on 11/11/14. Medical Group,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 Medical Group,[id number], MARSHALL Meneses, MARSHALL Lina[place] Elevated Problem Active 2019-02-08 Mem oria blood-pres 7-03 14:45:28 l sure Elevated 00:00: Jac n reading blood-pres 00 without sure diagnosis reading of without hypertensi diagnosis on of (finding) hypertensi on (finding) Active 12/15/2013 Problem 02/08/2019 Data migrated from [email or web address] on 11/11/14. Medical Group,[id number], MARSHALL Meneses, MARSHALL Linares PSORIATIC Diagnosis Active 2013-11-14 Memoria ARTHRITIS 11-09 21:48:00 l FLARE 00:00: [place] PSORIATIC 00 ARTHRITIS FLARE Active 11/09/2013 [place] CHEST PAIN Diagnosis Active 2013-11-10 Memoria 11-09 07:19:00 l CHEST 00:00: Gideon PAIN 00 Active 11/09/2013 [place] ATYPICAL Diagnosis Active 2013-11-09 M emoria CHEST PAIN 11-09 19:48:00 l ATYPICAL 00:00: Jac n CHEST PAIN 00 Active 11/09/2013 [place] Muscle Problem Active 2012-062019-02-08 Memor ia pain 2- 14:45:28 l (finding) Muscle 00:00: Abigail nn pain 00 (finding) Active 05/16/2013 Problem 02/08/2019 Data migrated from [email or web address] on 11/11/14. Medical Group,[id number], MARSHALL Meneses, ADYAmy Linares Hyperlipid Problem Active 2019-02-08 M emoria emia 02-09 14:45:28 l (disorder) 00:00: Jac n Hyperlipid 00 emia (disorder) Active 02/09/2013 Problem 02/08/2019 Data migrated from [email or web address] on 11/11/14. Medical Group,[id number], MARSHALL Meneses, OPIAmy Linares Peripheral Problem Active 2019-02-08 M emoria edema 6-06 14:45:28 l (disorder) 00:00: Jac n Peripheral 00 edema (disorder) Active 11/18/2012 Problem 02/08/2019 Data migrated from [employer] on 11/11/14. Medical Group,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 Medical Group,[id number], MARSHALL Meneses, MARSHALL [place] Anxiety Problem Active 2019-02-08 Michael shelli disorder 5-14 14:45:28 l (disorder) Anxiety 00:00: Her esparza disorder 00 (disorder) Active 10/26/2012 Problem 02/08/2019 Data migrated from [employer] on 11/11/14. Medical Group,[id number], MARSHALL Meneses, MARSHALL [place] Chronic Problem Active 2019-02-08 Michael shelli pain 5-14 14:45:28 l syndrome Chronic 00:00: Abigail nn (disorder) pain 00 syndrome (disorder) Active 10/26/2012 Problem 02/08/2019 Data migrated from [employer] on 11/11/14. Medical Group,[id number], MARSHALL Meneses, OPID [place] Fatigue Problem Active 2019-02-08 Michael shelli (finding) -14 14:45:28 l Fatigue 00:00: [place] (finding) 00 Active 10/26/2012 Problem 02/08/2019 Data migrated from [employer] on 11/11/14. Medical Group,[id number], MARSHALL Meneses, MARSHALL [place] HIGH LIVER Diagnosis Active 2013-01-08 Memoria ENZYMES - 15:38:00 l HIGH 00:00: Gideon LIVER 00 ENZYMES Active 10/04/2012 [facility] SYMMETRIC Diagnosis Active 2011-11-24 Memoria POLYARTICU 11-16 07:10:00 l LAR 00:00: Gideon INFLAMMATI SYMMETRIC 00 ON POLYARTICU LAR INFLAMMATI ON Active 2 [place] 714.9 - Diagnosis Active 2011-10-22 Me moria INFLAMM -07 09:45:00 l POLYART 714.9 - 00:01: Jac n INFLAMM 00 POLYART Active 10/20/2011 MARSHALL Linares History of History of Problem [...] Resolved Problem 02/08/2019 Medical Group,[id number],[facility], [facility] Ankylosing Problem Active 2019-02-08 M emoria spondyliti 14:45:28 l s Gideon (disorder) Ankylosing spondyliti s (disorder) Active Problem 02/08/2019 Medical Group,[id number], MARSHALL Meneses,[facility], [facility] PSORIATIC Diagnosis Active 2013-11-14 Memoria ARTHROPATH 21:48:00 l Y Gideon PSORIATIC ARTHROPATH Y Active [facility] CHEST PAIN Diagnosis Active 2013-11-10 Memoria NOS 07:19:00 l CHEST [place] PAIN NOS Active [facility] Discharge Problem 2013-2014-02-24 2014-02-24 Memoria Diagnosis: 02-21 02:44:22 02:44:22 l Cyst, 05:00: [place] ovarian Discharge 00 Diagnosis: Cyst, ovarian 02/21/2014 02/24/2014 [facility] Allergies, Adverse Reactions, Alerts Allergy Allergy Status Severity Reaction(s) Onset Inactive Treating Comm ents Source Name Type Date Date Clinician Hydromor Propensi Active GI [place] phone ty to Intolerance 6-20 Metho di adverse 00:00: st reaction 00 s to drug Methotre Propensi Active Rash [place] xate ty to 12-02 Methodi adverse 00:00: st reaction 00 s to drug Dilantin drug Active [facility] CAPS [facility] [place] [facility] Ultram drug Active Univers TABS [facility] [place] [facility] methotre drug Active Univers xate [facility] [place] [facility] Toradol Toradol Active Memoria florentino Meneses Dilaudid Dilaudid Active Memori carri Meneses Family History Family Member Diagnosis Comments Start Date Stop Date Source Mother Family history of [facility] [place] malignant neoplasm Physic ians of thyroid Father Family history of [facility] [place] Graves' disease Physician s Social History Social Habit Start Date Stop Date Quantity Comments Source Sex Assigned At F [facility] ethodist Tobacco use and 2019-05-04 2019-05-04 Never used [facility] ethodist exposure 00:00:00 00:00:00 Alcohol intake 2019-05-04 2019-05-04 Ex-drinker [facility] thodist 00:00:00 00:00:00 (finding) Social History 2013-11-10 2013-11-10 [facility] 04:07:22 04:07:22 Smoking Status Start Date Stop Date Source Current every day smoker [facility] Never smoker [place] [facility] t Medications Ordered Filled Start Stop Current Ordering Indication Dosage Frequency Signature Comments Components Source Medication Medication Date Date Medication? Clinician (SIG) Name Name omeprazole 2019-06 Yes Gastroesoph TAKE 2 [place] (PriLOSEC) 06-25 ageal CAPSULES Meth edgar 20 MG 00:00: reflux BY MOUTH st capsule 00 disease EVERY DAY without esophagitis omeprazole 2019-06 2020- No Gastroesoph 40mg QD Take 2 [place] OTC 06-25 ageal tablets Methodi (PriLOSEC 00:00: 00:00 reflux ([address] OTC) 20 MG 00 :00 disease total) by EC tablet without mouth esophagitis daily for 90 days. dexlansopra 2019-06 2020- No 60mg QD Take 60 mg [place] zole 06-23 by mouth Methodi (DEXILANT) 11:03: 00:[address] 60 mg 06 :00 capsule secukinumab 2019-06 Yes 300mg Q14D Inject 300 [place] (COSENTYX) 1-09 mg under Metho di 150 mg/mL 11:00: the skin st syringe 11 every 14 (fourteen) days. trazodone 2019-06 Yes 1{tbl} QD Take 1 [place] HCl -09 tablet by Methodi (TRAZODONE 11:00: mouth st ORAL) 11 nightly. promethazin 2019-06 Yes promethazi Steve e 06-23 ne 25 mg Methodi (PHENERGAN) 11:00: tablet st 25 MG 11 tablet omeprazole 2019-06- No Gastroesoph 40mg QD Take 2 [place] OTC 06-23 ageal tablets Methodi (PriLOSEC 00:00: 00:00 reflux ([address] OTC) 20 MG 00 :00 disease total) by EC tablet without mouth esophagitis daily for 90 days. omeprazole 2019-06- No Gastroesoph 20mg QD Take 1 [place] OTC 06-23 ageal tablet (20 Methodi (PriLOSEC 00:00: 00:00 reflux mg total) st OTC) 20 MG 00 :00 disease by mouth EC tablet without daily for esophagitis 90 days. lubiproston 2019-06- No Constipatio 24ug Q.5D Take 1 [place] yesenia (AMITIZA) 0-14 11-13 n due to capsule Methodi 24 MCG 00:00: 23:59 opioid ([address] capsule 00 :00 therapy total) by mouth 2 (two) times a day with meals for 30 days. triazolam 2019-06- triazolam Eagle martinez (HALCION) 0-07 10-07 0.25 mg Method i 0.25 MG 14:29: 00:[address] tablet 08 :00 temazepam 2019-06- No temazepam Eagle martinez (RESTORIL) 0-07 10-07 15 mg Methodi 15 mg 14:29: 00:[address] capsule 01 :00 predniSONE 2019-06- No prednisone [place] (DELTASONE) 0-07 10-07 10 mg Method i 10 mg 14:28: 00:[address] tablet 56 :00 omeprazole 2019-06- No omeprazole [place] (PriLOSEC) 0-07 10-07 40 mg Methodi 40 MG 14:28: 00:00 capsule,de st capsule 51 :00 layed release naloxegol 2019-06 Movantik Adelina gagen (MOVANTIK) 0 10- 25 mg Methodi 25 mg 14:28: 00:[address] tablet 48 :00 tablet methotrexat 2019-06 methotrexa Steve e 2.5 MG 003-21 te sodium Metho di tablet 14:28: 00:[address] 41 :00 tablet LORAZepam 2019-06 lorazepam Eagle martinez (ATIVAN) 1 003-21 1 mg Methodi MG tablet 14:28: 00:[address] 38 :00 methocarbam 2019-06 methocarba Steve ol 003-21 mol 500 mg Methodi (ROBAXIN) 14:28: 00:[address] 500 MG 25 :00 tablet ipratropium 2019-06 ipratropiu Steve (ATROVENT) 003-21 m bromide Met hodi 0.03 % 14:28: 00:00 0.03 % st nasal spray 17 :00 nasal spray omeprazole 2019-06 20mg QD Take 1 [place] OTC 004-23 tablet (20 Methodi (PriLOSEC 00:00: 00:00 mg total) st OTC) 20 MG 00 :00 by mouth EC tablet daily for 90 days. sodium,pota 2019-06 354mL Take 2 Eagle martinez ssium,mag 003-21 Bottles Method i sulfates 00:00: 23:59 ([address] (Suprep 00 :00 total) by Bowel Prep mouth once Kit) for 1 17.5-3.13-1 dose. .6 gram Drink 1 recon soln bottle as directed for dose 1 and 1 bottle as directed for dose 2. hydrOXYzine 2018-06- No 50mg Q6H Take 50 mg [place] (ATARAX) 50 06-19 by mouth Met hodi MG tablet 00:00: 00:[address] 00 :00 hours while awake as needed (RT). morphine 2018- Yes Q12H every 12 [place] (MORPHABOND 8-29 (twelve) Meth edgar ER) 15 mg 00:00: hours. st tablet,oral 00 only,ext.re l.12 hr leflunomide Yes 1 (one) Adelina ston (ARAVA) 20 8-16 time each Meth edgar MG tablet 00:00: day at the st 00 same time. lubiproston 2020- No AMITIZA 24 Wilson e (AMITIZA) 8-16 10-07 MCG CAPS Met hodi 24 MCG 00:00: 00:00 st capsule 00 :00 estradiol 2020- No [place] (VIVELLE-DO 6-06 10-07 Methodi T) 0.1 00:00: 00:00 st mg/24 hr 00 :00 gabapentin 2018- Yes 300mg Q.25D Take 300 [place] (NEURONTIN) 6-03 mg by Methodi 300 mg 00:00: mouth 4 st capsule 00 (four) times a day. celecoxib Yes [place] (CeleBREX) 5-26 Methodi 200 MG 00:00: st [...] Solution Auto-inject Auto-inject or or HYDROcodone 2014-06 2020- No [place] -acetaminop 07-08 Methodi hen (NORCO) 00:00: 00:00 st 10-325 mg 00 :00 per tablet Celecoxib Celecoxib Yes CHEN TAKE ONE Univers 200 MG Oral 200 MG Oral 1-13 HOANG CAPSULE BY ity of Capsule Capsule 00:00: M.D. MOUTH [place] 00 TWICE A Physici DAY ans NEEDED Acetaminoph Yes 1 - 2 tab, Memoria en 300 MG / 02-21 PO, Q4H, l Codeine 17:09: Pain, # 20 Herm nick Phosphate 00 tab, 0 30 MG Oral Refill(s) Tablet [Tylenol with Codeine #3] Ondansetron Yes 8 mg = 1 Me moria 8 MG Oral 02-21 tab, PO, l Tablet 17:09: TID, # 10 Jac n [Zofran] 00 tab, 0 Refill(s) Ondansetron No 4 mg, Memor ia 02-21 Route: l 16:45: IVP, Drug Gideon form: INJ, ONCE, Dosing Weight 75, kg, Priority: STAT, Start date: 02/21/14 11:45:00, Stop date: 02/21/14 11:45:00 Acetaminoph No 1 tab, Michael shelli en 325 MG / 02-21 Route: PO, l Hydrocodone 16:45: Dosing Herm nick Bitartrate 00 Weight 75, 5 MG Oral kg, ONCE, Tablet STAT, Start date: 02/21/14 11:45:00, Stop date: 02/21/14 11:45:00 Morphine No 4 mg, Memoria 02-21 Route: l 15:11: IVP, Drug Gideon form: INJ, ONCE, Dosing Weight 75, kg, Priority: STAT, Start date: 02/21/14 10:11:00, Stop date: 02/21/14 10:11:00 Morphine 2013-0 No 4 mg, Memoria 02-21 Route: l 14:00: IVP, Drug form: INJ, ONCE, Dosing Weight 75, kg, Priority: STAT, Start date: 02/21/14 9:00:00, Stop date: 02/21/14 9:00:00 Zofran 2013-0 No 4 mg, Memoria 02-21 Route: l 13:52: IVP, Drug form: INJ, ONCE, Dosing Weight 75, kg, Priority: STAT, Start date: 02/21/14 8:52:00, Stop date: 02/21/14 8:52:00 Sodium 2013- No 1,000 mL, Memori a Chloride 02-21 1,000 l 0.154 13:52: ml/hr, MEQ/ML 00 Infuse Injectable Over: 1 Solution [...] As: CeleBREX) Enoxaparin No Notes: Memor ia -29 (Same as: l 14:00: Lovenox) Demerol HCl No Notes: Michael shelli - (Same As: l 13:25: Demerol) Acetaminoph No Notes: Do M emoria en 325 MG / - not exceed l Hydrocodone 13:24: 4gm/day of Gideon Bitartrate acetaminop 10 MG Oral hen. Tablet (Same as: [place] 325/10) Zanaflex Yes 4 mg, PO, Michael shelli -29 BID, 0 l 05:46: Refill(s) Celebrex Yes Daily, 0 Memor ia -29 Refill(s) l 05:46: Gideon 00 Acetaminoph Yes 1 tab, PO, Memoria en 325 MG / -29 Q6H, as l Hydrocodone 05:46: needed for Bitartrate pain, 0 10 MG Oral Refill(s) Tablet Methotrexat Yes 17.5 mg, Me moria e 5-29 PO, qWeek, l 05:46: 0 Refill(s) nitroglycer No Notes: Michael shelli in 0.4 mg 11-10 (Same l sublingual 01:46: as:Nitroqu H ermann tablet 00 ick, Nitrostat) "Do Not Crush" Sublingual tablet atropine No 0.5 mg, 5 Michael shelli 5-29 mL, Route: l 01:46: IVP, Drug form: INJ, PRN, PRN Bradycardi a, Start date: 11/09/13 20:46:00, Duration: 30 day, Stop date: 12/09/13 20:45:00 Ambien No Notes: Memoria -29 (Same As: l 01:31: Ambien) Morphine No Notes: Memoria -29 (Same l 01:31: as:MORPhin e Sulfate) tiZANidine tiZANidine Yes CHEN 1 Q0.3333D TAKE 1 Univers HCl - 4 MG HCl - 4 MG 7-18 HOANG TABLET 3 ity of Oral Tablet Oral Tablet 00:00: M.D. TIMES [place] 00 DAILY Physici ans [place] TABS [place] TABS Yes Uni [facility] [place] [...] Immunizations Ordered Filled Immunization Date Status Comments [facility] e Immunization Name Name PPD 2014-04-11 Completed University 00:00:00 [place] [facility] PPD 2013-03-31 Completed University 00:00:00 [place] [facility] PPD 2012-02-25 Completed University 00:00:00 [place] [facility] Vital Signs Vital Name Observation Time Observation Value Comments Source Systolic blood 2020-04-23 145 mm[Hg] [place] pressure 10:57:00 Buddhist Diastolic blood 2020-04-23 93 mm[Hg] [place] pressure 10:57:00 Buddhist Heart rate 2020-04-23 68 /min [place] 10:57:00 Buddhist Body height 2020-04-23 162.6 cm [place] 10:57:00 Buddhist Body weight 2020-04-23 79.742 kg [place] 10:57:00 Buddhist BMI 2020-04-23 30.18 kg/m2 [place] 10:57:00 Buddhist Oxygen saturation 2020-04-23 97 /min [place] in Arterial blood 10:57:00 Buddhist by Pulse oximetry BP Systolic 2018-08-12 129 mm[Hg] Location: [facility] 10:54:00 Position: [place] [facility] s Sitting BP Diastolic 2018-08-12 97 mm[Hg] Location: [facility] 10:54:00 Position: [place] [facility] s Sitting Height 2018-08-12 64 [in_us] [facility] 10:54:00 [place] [facility] s Weight 2018-08-12 161.125 [lb_av] University o f 10:54:00 [place] [facility] s Body Mass Index 2018-08-12 27.66 kg/m2 University o f Calculated 10:54:00 [place] Phys[facility] s Heart Rate 2018-08-12 99 /min Location: R [facility] 10:54:00 Radial; [place] Physician s BP Systolic 2017-11-25 135 mm[Hg] Location: [facility]; [facility] 11:34:00 Position: [place] Physician s Sitting BP Diastolic 2017-11-25 94 mm[Hg] Location: RU; [facility] 11:34:00 Position: [place] Physician s Sitting Height 2017-11-25 64 [in_us] University 11:34:00 [place] Physician s Weight 2017-11-25 161.4 [lb_av] [facility] 11:34:00 [place] Physician s Body Mass Index 2017-11-25 27.7 kg/m2 University o f Calculated 11:34:00 [place] Phys[facility] s Heart Rate 2017-11-25 86 /min Location: R [facility] 11:34:00 Carotid; [place] Physician s Diastolic (mm Hg) 2014-02-21 [facility] 17:21:00 Systolic (mm Hg) 2014-02-21 [facility] r[facility] 17:21:00 Temperature Oral 2014-02-21 98.2 F [facility] (F) 17:21:00 Respitory Rate 2014-02-21 [facility] nick 17:21:00 Systolic (mm Hg) 2014-02-21 [facility] 15:50:00 Diastolic (mm Hg) 2014-02-21 [facility] ermann 15:50:00 Temperature Oral 2014-02-21 98.3 F [facility] rmann (F) 15:50:00 Respitory Rate 2014-02-21 [facility] nick 15:50:00 Temperature Oral 2014-02-21 98.5 F [facility] He rmann (F) 13:44:00 Respitory Rate 2014-02-21 Memorial [...] 00:48:00 Temperature Oral 2013-11-11 98.1 F Memorial Jaleel rmann (F) 00:48:00 Respitory Rate 2013-11-11 [facility] nick 00:48:00 Systolic (mm Hg) 2013-11-11 [facility] rmann 00:48:00 Diastolic (mm Hg) 2013-11-11 [facility] ermann 00:48:00 Systolic (mm Hg) 2013-11-10 [facility] rmann 21:00:00 Diastolic (mm Hg) 2013-11-10 [facility] ermann 21:00:00 Heart Rate 2013-11-10 Memorial Jac n 21:00:00 Respitory Rate 2013-11-10 [facility] nick 21:00:00 Temperature Oral 2013-11-10 98.3 F Lolita Marmolejo rmann (F) 21:00:00 Respitory Rate 2013-11-10 [facility] nick 17:00:00 Diastolic (mm Hg) 2013-11-10 [facility] H ermann 17:00:00 Systolic (mm Hg) 2013-11-10 [facility] Jaleel rmann 17:00:00 Heart Rate 2013-11-10 Lolita Arechigaan n 17:00:00 Temperature Oral 2013-11-10 98.0 F Lolita Marmolejo rmann (F) 17:00:00 BMI Calculated 2013-11-10 [facility] nick 01:17:00 Height 2013-11-10 162.56 cm Memorial Jac n 01:17:00 Weight 2013-11-10 Lolita Arechigaan n 01:17:00 Procedures Procedure Date / Time Performing Clinician Source Performed MRI LUMBAR SPINE WO 2020-05-04 13:35:26 Shree Rosenbaum CONTRAST Fernando XR LUMBAR SPINE COMPLETE W 2020-05-03 12:22:06 Shree Rosenbaum BENDING Fernando BASIC METABOLIC PANEL 2020-03-21 14:55:00 Rosmery Fregosody MAGNESIUM LEVEL 2020-03-21 14:55:00 Rosmery Fregoso Hernandes [UTP] EMG 2018-10-27 00:00:00 [facility] [place] [facility] [QLH] CBC (INCLUDES 2018-06-17 00:00:00 [facility] DIFF/PLT) Physicians [QLH] CMP W/EGFR 2018-06-17 00:00:00 [facility] [QLH] C-REACTIVE PROTEIN 2018-06-17 00:00:00 Uni [facility]icians [QLH] SED RATE BY MODIFIED 2018-06-17 00:00:00 [facility] [QL] QUANTIFERON(R)-TB 2018-06-17 00:00:00 [facility] [QLH] CBC (INCLUDES 2017-11-25 00:00:00 Universi [facility] DIFF/PLT) Physicians [QLH] CMP W/EGFR 2017-11-25 00:00:00 [facility]icians [QL] C-REACTIVE PROTEIN 2017-11-25 00:00:00 Uni [facility] Physicians [QL] SED RATE BY MODIFIED 2017-11-25 00:00[facility] C-REACTIVE PROTEIN 2017-10-27 00:00:00 Uni [facility] [QL] CBC (INCLUDES 2017-10-27 00:00:00 [facility] DIFF/PLT) Physicians [QLH] CMP W/EGFR 2017-10-27 00:00:00 [facility] [QLH] SED RATE BY MODIFIED 2017-10-27 00:00[facility] Physicians History [facility]nee [facility] Physicians History of Ankle surgery [facility] Physicians Appendectomy [facility] Cholecystectomy [facility] Hysterectomy [facility] Operative procedure on [facility] knee Plan of Care Planned Activity Planned Date Details Comments Source Future Scheduled 2020-01-14 INFLUENZA VACCINE [place] [facility] Test 00:00:00 [code = INFLUENZA VACCINE] Diagnostic Test 2018-10-27 [UTP] EMG [code = [facility] [place] Pending 00:00:00 [UTP] EMG] Physicians Diagnostic Test 2018-10-27 [UTP] EMG [code = [facility] [place] Pending 00:00:00 [UTP] EMG] Physicians Future Scheduled 1995 Screening for Wilson Me thodist Test 00:00:00 malignant neoplasm of cervix (procedure) [code = 612243497] Future Scheduled 1990 COVID-19 VACCINE [place] [facility] Test 00:00:00 (#1) [code = COVID-19 VACCINE (#1)] Encounters Start End Encounter Admission Attending Care Care Encounter Source Date/Time Date/Time Type Type Clinicians Facility Department ID 2020-05-04 2020-05-04 Outpatient SELL[place], [facility] [id number] [place] 00:00:00 00:00:00 SHREE 062 Metho di 2020-05-03 2020-05-03 Outpatient [place], [facility] [id number] [place] 00:00:00 00:00:00 SHREE 784 Metho di 2020-04-23 2020-04-23 Outpatient [place], [facility] [id number] [place] 00:00:00 00:00:00 NEEHARIKA 609 Meth edgar 2020-03-21 2020-03-21 Outpatient [place], [facility] [id number] [place] 00:00:00 00:00:00 NEEHARIKA 642 Meth edgar 2020-03-21 2020-03-21 Outpatient [place], [facility] [id number] [place] 00:00:00 00:00:00 NEEHARIKA [address] 2018-10-27 2018-10-27 [facility] [id number] [facility] 13:00:00 13:00:00 t; ENRRIQUE MARAVILLA ity of [place]RI[place], M.D. [place] [facility] 2018-08-12 2018-08-12 [facility] [id number] Univers 10:30:00 10:30:00 t; CHEN HOANG y ity of JAMMIE, M.D. [place] M.D. Physici ans 2018-08-12 2018-08-12 [facility] [id number] Univers 09:30:00 09:30:00 t; CHEN HOANG ity of JAMMIE, M.D. [place] [facility] 2018-07-21 2018-07-22 Outpatient [id number] 09:16:00 09:16:00 [id number] 2018-06-21 2018-06-21 Outpatient Miles [facility] [id number] 11:30:00 11:30:00 Savbucky Jones 2017-11-25 2017-11-25 Appointmen BEAU HOANG Rheumatolog [id number] Univers 10:30:00 10:30:00 t; CHEN HOANG y ity of [place]AM[place]E, M.D. [place] M.D. Physici ans 2017-10-28 2017-10-28 Appointmen BEAU STAUFFER Rheumatolog [id number] Univers 15:00:00 15:00:00 t; AUTUMN STAUFFER y ity o f FILEMON, M.D. [place] M.D. Physici ans 2017-10-28 2017-10-28 [facility], [facility]AU [facility] [id number] Univers 11:00:00 11:00:00 t; CHEN HOANG ity of [place]AM[place]E, M.D. [facility].D. Physici ans 2017-06-24 2017-06-24 [facility] [place], BEAU UTP [id number] Univers 09:00:00 09:00:00 t; CHEN HOANG ity of [place]AM[place]E, M.D. [facility].Amy. Physici ans 2017-03-25 2017-03-25 [facility] [place], BEAU [facility] [id number] Univers 09:30:00 09:30:00 t; CHEN HOANG ity of [place], M.D. [place] Luis Felipe.Natacha Physici ans 2016-12-10 2016-12-10 [facility] [place], BEAU [facility] [id number] Univers 09:30:00 09:30:00 t; CHEN HOANG ity of [place], M.D. [place] Luis Felipe.Natacha Physici ans 2016-11-19 2016-11-19 [facility] [place], BEAU UTP [id number] Univers 15:30:00 15:30:00 t; CHEN HOANG ity of [place], M.D. [place] Luis Felipe.D. Physici ans 2016-09-12 2016-09-12 [facility] [id number] 12:22:00 23:59:00 Chen Farnsworth 05 2016-08-19 2016-08-19 Appointmen HAROON, [facility] UTP [id number] Univers 09:30:00 09:30:00 t; CHEN HOANG ity of [place]AM[place], M.D. [facility] 2016-08-04 2016-08-04 Appointmen JOSE, [facility] UTP [id number] Univers 08:00:00 08:00:00 t; MAIA GARCIA ity of SALIMA, M.D. [facility] 2016-04-22 2016-04-22 Appointmen HAROON, [facility] UTP [id number] Univers 08:30:00 08:30:00 t; CHEN HOANG ity of [place], M.D. [facility] 2016-01-10 2016-01-10 [facility] ISI, [facility] UTP [id number] Univers 11:30:00 11:30:00 t; [facility] [place] Jh LO Physi ci ans 2015-12-20 2015-12-20 [facility]I, [facility] UTP [id number] Univers 14:00:00 14:00:00 t; Jh LO [place], [place] Jh LO Physi ci ans 2015-11-28 2015-11-28 [facility] [place], [facility] UTP [id number] Univers 09:30:00 09:30:00 t; CHEN HOANG ity of [place], M.D. [facility] 2015-05-30 2015-05-30 Outpatient KINZA HoangP [facility] [id number] 09:50:00 23:59:00 Chen Farnsworth 04 2014-02-21 2014-02-21 Outpatient AMOR Manuel [id number] 08:42:00 12:39:00 May2013-11-10 2013-11-10 Outpatient AMOR Burns [id number] 08:27:00 23:35:00 [facility] Cross[facility] Results Test Description Test Time Test Comments Results Result Sour e Comments XR Lumbar Spine 2020-04-15 Hm Interface, Trina n Complete W Flex 9 Radiology Results Me thodist and Ext 12:37:57 Incoming - 05/03/2020 12:41 PM CSTEXAMINATION: XR LUMBAR SPINE COMPLETE W FLEX & EXTENDCLINICAL HISTORY: M54.16 Radiculopathy lumbar regionCOMPARISON: External MRI of the lumbar spine dated 11/26/2018.IMPRESSIO N:6 views of the lumbar spine are interpreted including dynamic lateral grafts.There are 5 lumbar type vertebrae.Vertebral heights are preserved. No displaced fracture aggressive bone lesion is seen.There is moderate to prominent loss of disc height at L1-2 which is developmental.Align ment is preserved.There is no significant change in alignment on dynamic lateral radiographs.[facility]2U [id number] Basic metabolic panel 2020-03-22 05:37:00 Test Item Value Reference Range Interpretation Comme nts Glucose (test code = 118 mg/dL 65-99 H Fasting 2345-7) reference inter quita For someone without known diabetes, a glu cose valuebetween 10 0 and 125 mg/dL is consis tent withprediabetes and should be confi rmed with afollow-up test . BUN (test code = 3094-0) 11 mg/dL 7-25 Creatinine (test code = 0.64 mg/dL 0.5-1.1 2160-0) EGFR Non-Afr. Algerian 107 > OR = 60 (test code = 2775) mL/min/1.73m2 EGFR 124 > OR = 60 (test code = 17535-5) mL/min/1.73m2 BUN/creatinine ratio NOT APPLICABLE 6- 22 (calc) (test code = 3097-3) Sodium (test code = 139 mmol/L 959-339 1890-2) Potassium (test code = 3.9 mmol/L 3.5-5.3 2823-3) Chloride (test code = 104 mmol/L 98-110 2075-0) CO2 (test code = 2027-9) 28 mmol/L 20-32 Calcium (test code = 8.6 mg/dL 8.6-10.2 75986-1) RAC (test code = RAC) Performing Organization Information: Site ID: RGA Name: [facility] Address: [address] [place] [address] [place] [address] Director: Jonny Boyd Lab Interpretation (test Abnormal code = 84358-1) [facility] [place] [id number] 05:37:00 Test Item Value Reference Range Interpretation Comments Magnesium (test code 1.8 mg/dL 1.5-2.5 = 00185-6) RAC (test code = RAC) Performing Organization Information: Site ID: RGA Name: [facility] Address: [address] [place] [address] Director: Jonny Boyd [facility]] CMP [id number] 15:39:00 Test Item Value Reference Range Interpretation Comments GLUCOSE; Normal 124 mg/dl 65-139 N Non-fasting (test code = reference inter quita 1547-9) UREA NITROGEN (BUN) 14 mg/dl 7-25 N (test code = UREA NITROGEN (BUN)) CREATININE (test 0.67 mg/dl 0.50-1.10 N code = CREATININE) eGFR NON- 107 {ML/MIN/1.7} > OR = 60 N PRYDEINIG (test code = eGFR NON-) eGFR 124 {ML/MIN/1.7} > OR = 60 N PRYDEINIG (test code = eGFR ) BUN/CREATININE NOT APPLICABLE 6-22 RATIO (test code = BUN/CREATININE RATIO) SODIUM (test code = 138 mmol/L 135-146 N SODIUM) POTASSIUM (test 3.7 mmol/L 3.5-5.3 N code = POTASSIUM) CHLORIDE (test code 104 mmol/L 98-110 N = CHLORIDE) CARBON DIOXIDE 26 mmol/L 20-32 N (test code = CARBON DIOXIDE) CALCIUM (test code 8.3 mg/dl 8.6-10.2 = CALCIUM) PROTEIN, TOTAL 6.1 g/dl 6.1-8.1 N (test code = PROTEIN, TOTAL) ALBUMIN (test code 3.9 g/dl 3.6-5.1 N = ALBUMIN) GLOBULIN (test code 2.2 {G/DL CALC} 1.9-3.7 N = GLOBULIN) ALBUMIN/GLOBULIN 1.8 {CALC} 1.0-2.5 N RATIO (test code = ALBUMIN/GLOBULIN RATIO) BILIRUBIN, TOTAL; 0.2 mg/dl 0.2-1.2 N Normal (test code = 80575-4) ALKALINE PHSPHATASE 94 u/l 33-115 N (test code = ALKALINE PHSPHATASE) AST; Normal (test 11 u/l 10-30 N code = 1916-6) ALT; Normal (test 8 u/l 6-29 N code = 1742-6) [facility]] SED RATE BY MODIFIED [id number] 15:39:00 Test Item Value Reference Range Interpretation Comments SED RATE BY MODIFIED WESTERGREN (test 6 mm/h < OR = 20 N code = SED RATE BY MODIFIED WESTERGREN) [facility]] CBC (INCLUDES DIFF/PLT)2018-07-06 15:39:00 Test Item Value Reference Range Interpretation Comments WHITE BLOOD CELL COUNT 5.1 {Thousand/u} 3.8-10.8 N (test code = WHITE BLOOD CELL COUNT) RED BLOOD CELL COUNT (test 3.37 {Million/uL} 3.80-5.10 code = RED BLOOD CELL COUNT) HEMAGLOBIN; Below Low 10.8 g/dl 11.7-15.5 Threshold (test code = 61295-9) HEMATOCRIT; Below Low 31.4 % 35.0-45.0 Threshold (test code = 4544-3) MCV; Normal (test code = 93.2 fL 80.0-100.0 N 787-2) MCHC; Normal (test code = 34.4 g/dl 32.0-36.0 N 51969-4) RDW; Normal (test code = 13.9 % 11.0-15.0 N 788-0) PLATELET COUNT; Below Low 109 {Thousand/u} 140-400 Threshold (test code = 777-3) MPV; Normal (test code = 11.5 fL 7.5-12.5 N 85683-1) ABSOLUTE NEUTROPHILS (test 3203 {cells/uL} 8774-6528 N code = ABSOLUTE NEUTROPHILS) ABSOLUTE LYMPHOCYTES [...] Normal (test 5.7 % N code = 46291-3) EOSINOPHILS; Normal (test 1.2 % N code = 74806-1) BASOPHILS; Normal (test 0.2 % N code = 51971-0) [facility]] C-REACTIVE [id number] 15:39:00 Test Item Value Reference Range Interpretation Comments C-REACTIVE PROTEIN (test code = 5.4 mg/L <8.0 N C-REACTIVE PROTEIN) [facility][Q] QUANTIFERON( R)-TB GOLD PLUS, 1 [id number] 15:39:00 Test Item Value Reference Range Interpretation [...] For additional info rmation, please refer tohttp://educat ion.CDNetworks/fa q/204(This link is being p rovided for informational/e ducational purposes only.) [facility]] CMP [id number] 11:59:00 Test Item Value Reference Range Interpretation Comments GLUCOSE; Normal 97 mg/dl 65-139 N Non-fasting (test code = reference inter quita 1547-9) UREA NITROGEN (BUN) 19 mg/dl 7-25 N (test code = UREA NITROGEN (BUN)) CREATININE (test 0.63 mg/dl 0.50-1.10 N code = CREATININE) eGFR NON- 110 {ML/MIN/1.7} > OR = 60 N PRYDEINIG (test code = eGFR NON-) eGFR 127 {ML/MIN/1.7} > OR = 60 N PRYDEINIG (test code = eGFR ) BUN/CREATININE NOT [...] mg/dl 0.2-1.2 N Normal (test code = 33997-1) ALKALINE PHSPHATASE 79 u/l 33-115 N (test code = ALKALINE PHSPHATASE) AST; Normal (test 19 u/l 10-30 N code = 1916-6) ALT; Normal (test 18 u/l 6-29 N code = 1742-6) [facility]] SED RATE BY PIOTR [id number] 11:59:00 Test Item Value Reference Range Interpretation Comments SED RATE BY MODIFIED WESTERGREN (test 19 mm/h < OR = 20 N code = SED RATE BY MODIFIED WESTERGREN) [facility]] CBC (INCLUDES DIFF/PLT)2017-11-25 11:59:00 Test Item Value Reference Range Interpretation Comments WHITE BLOOD CELL COUNT 5.8 {Thousand/u} 3.8-10.8 N (test code = WHITE BLOOD CELL COUNT) RED BLOOD CELL COUNT (test 3.90 {Million/uL} 3.80-5.10 N code = RED BLOOD CELL COUNT) HEMOGLOBIN; Normal (test 12.0 g/dl 11.7-15.5 N code = 45547-0) HEMATOCRIT; Normal (test 35.4 % 35.0-45.0 N code = 4544-3) MCV; Normal (test code = 90.8 fL 80.0-100.0 N 787-2) MCHC; Normal (test code = 33.9 g/dl 32.0-36.0 N 24755-3) RDW; Normal (test code = 14.5 % 11.0-15.0 N 788-0) PLATELET COUNT; Normal 250 {Thousand/u} 140-400 N (test code = 777-3) MPV; Normal (test code = 10.7 fL 7.5-12.5 N 61014-4) ABSOLUTE NEUTROPHILS (test 3747 {cells/uL} 0587-9460 N code = ABSOLUTE NEUTROPHILS) ABSOLUTE LYMPHOCYTES [...] Normal (test 8.2 % N code = 94963-8) EOSINOPHILS; Normal (test 0.7 % N code = 18553-7) BASOPHILS; Normal (test 1.0 % N code = 03258-8) [facility]] C-REACTIVE [id number] 11:59:00 Test Item Value Reference Range Interpretation Comments C-REACTIVE PROTEIN (test code = 5.7 mg/L <8.0 N C-REACTIVE PROTEIN) [facility]iciansCHEM [id number] 14:00:0050[facility] CHEM UVJTS5078-77-48 14:00:001.2[facility] HermannCHEM ORART7519-39-72 14:00:003.5 [facility] GUERM8177-98-17 14:00:0016[facility]annCHEM PANEL 2014-02-21 14:00:0013.4[facility]annCHEM LWOSR1824-42-65 14:00:53757Ejbyrikh HermannCHEM WEQPE0118-45-67 14:00:007.8[facility]annCHE[facility] PQWQV1606-33-36 14:00:000.3[facility]annCHE[facility] AIHTJ1175-59-08 14:00:0015[facility]annCHEM CCBZU0318-74-93 14:00:008.8[facility]annCHE[facility] PBPLX6169-95-51 14:00:95915 [facility]annCHE[facility] AYRFN8507-73-03 14:00:87036Jvwiryol HermannCHEM PANEL 2014-02-21 14:00:003.4[facility]annCHEM TRCOX6240-35-07 14:00:0024[facility]annCHEM QJUEM0308-92-38 14:00:000.7[facility]annCHEM PPHYV7252-00-67 14:00:42104Pqcvchgz HermannCHEM PADFB4230-42-98 14:00:0085[facility]annCHEM PMRYS5274-73-15 14:00:0011[facility]annCHEM WYKDZ4334-44-27 14:00:004.3 [facility]CHE[facility] [id number] 14:00:0015[facility]annHEMATOLOGY 2014-02-21 14:00:00 Test Item Value Reference Range Interpretation Comments PT (test code = PT) 12.9 s 12.0-14.7 [facility] AdygdxxSKATWSVQBL4825-30-84 14:00:00 Test Item Value Reference Range Interpretation Comments PTT (test code = PTT) 38.8 s 22.9-35.8 [facility] TtqexssRFPXZEUWCL1671-43-55 14:00:000.97[facility]annHEMATOLOGY 2014-02-21 14:00:008.8[facility] LhbpsveWSSHAUZIJQ9255-06-17 14:00:0033.0[facility] ClaftfbRQTHJGEOGZ0649-99-23 14:00:0013.6[facility] GbmuzasEGCAVMHARR4063-81-91 14:00:33187Oxalngwg RpyygihTIANKRDQFS5744-14-97 14:00:00 Test Item Value Reference Range Interpretation Comments MCH (test code = MCH) 29.8 pg 27.0-31.0 Memorial BgazzlfFWPVEOYRSU8369-27-66 14:00:0090.1[facility] HermannHEMATOLOGY 2014-02-21 14:00:0013.0[facility] CbkqbblAJPLTKPSMF7706-04-44 14:00:0039.4[facility] UnmgadoIQPEDMWWXA2383-01-37 14:00:004.37[facility] CdgnayuYLRPEJJAPM5418-12-46 14:00:006.5[facility] DnajmgmRUXNFWGJGY1027-58-91 14:00:001.4[facility] OHZFPZZJPI0931-19-47 14:00:004.5[facility] XciyjhiAKBFMTANJK5659-44-01 14:00:007.9 Memorial FpagsdzTOLNSMWKQF8699-33-78 14:00:000.7[facility] HermannHEMATOLOGY 2014-02-21 14:00:0069.3[facility]orial ZmavzktNPISGGXFJU3873-32-38 14:00:0021.4[facility] CupcizxSWODMIUHDQ7771-37-54 14:00:000.7[facility]orial NtvdufxSFYZZHINJU9242-32-76 14:00:000.5[facility]annURINE AND HDUIQ3201-31-33 13:50:00None Seen (02/21/14 8:50 AM)[facility] AND NIIYR3838-57-62 13:50:00Performed (02/21/14 8:50 AM)[facility] MAIVR9659-50-02 13:50:00Negative (02/21/14 8:50 AM) [facility] DMNCF0683-34-63 13:50:00Negative (02/21/14 8:50 AM) [facility] ILWTA4998-04-80 13:50:00Negative *NA*(02/21/14 8:50 AM) [facility] ULNQT9892-91-09 13:50:00Yellow *NA*(02/21/14 8:50 AM) [facility] EYUZS5169-91-54 13:50:00 Test Item Value Reference Range Interpretation Comments UA Spec Grav (test code = UA Spec 1.010 1 Grav) [facility] IGDZX7169-91-92 13:50:00 Test Item Value Reference Range Interpretation Comments UA pH (test code = UA pH) 6.0 1 5.0-8.0 [facility] DAEDY9620-28-31 13:50:00Negative (02/21/14 8:50 AM) [facility] [id number] 13:50:00Negative (02/21/14 8:50 AM) [facility] PZQRM1990-08-94 13:50:00Negative *NA*(02/21/14 8:50 AM) [facility] XMOBZ0485-75-77 13:50:00Trace *ABN*(02/21/14 8:50 AM) [facility] PZGBJ9609-60-17 13:50:000.2[facility] AND UEAZO8594-80-82 13:50:00Clear (02/21/14 8:50 AM)[facility] CHEM 2014-02-21 13:50:00Negative (02/21/14 8:50 AM)[facility] HermannCHEM GVBBC9815-80-60 15:22:55652Fxxrioss HermannCHEM HHERE1935-61-45 15:22:000.7[facility] THYZNRXTKO0716-54-46 15:22:0013[facility] IoihxhhPPDAPCZHFZ9771-01-04 15:22:80006 Memorial DhkisdxZOITJWRYPF3347-24-53 15:22:00 Test Item Value Reference Range Interpretation Comments PTT (test code = PTT) 38.9 s 22.9-35.8 Memorial WeeyegqPEAOVZBSJB2464-26-81 02:37:000.22[facility] HermannCARDIAC ENZYMES 2013-11-10 01:49:000.6[facility] HermannCARDIAC FQEYPWC5836-21-17 01:49:000.[address] [facility]
[2020-06-15] MEDS ORDERED: dexAMETHasone 10 MG/ML VIAL ONE (11:41)
[2020-06-15] MEDS ORDERED: PROMETHAZINE INJ 25 MG/ML AMP ONE ×2 (11:41→12:42)
[2020-06-15] MEDS ORDERED: NA CHLORIDE 0.9% 1,000 ML ONE (11:42)
[2020-06-15] MEDS ORDERED: ALBUTEROL INHALER 60 PUFF/8 GM IH ONE (11:42)
[2020-06-15 12:09] LABS: Absolute Lymphocytes (CBC) 0.4 K/uL (0.7-4.9); Basophils % 0.4 % (0-1.3); Hematocrit 36.2 % (36.0-45.0); Lymphocytes % 7.1 % (15.3-44.8); MPV 8.5 fL (7.6-11.3); RBC Red Blood Cell Count 4.03 M/uL (3.86-4.86)
--- NOTE | 2020-06-15 12:10 | RAD REPORT ---
EXAM DESCRIPTION: RAD - Chest Single View - 06/15/2020 11:30 am CLINICAL HISTORY: Cough;Fever, COVID positive COMPARISON: Portable February 2020 TECHNIQUE: AP portable chest image was obtained 06/15/2020 11:30 am . FINDINGS: Bilateral airspace opacification is present in a more peripheral distribution. Given the h istory this is most likely a moderately severe COVID-19 pneumonia. No cavitation or mass lesion. Trac hea is midline. Heart and vasculature are normal. No measurable pleural effusion and no pneumothorax. No acute bony abnormality seen. No acute aortic findings suspected. IMPRESSION: Moderate severity bilateral pneumonia pattern consistent with COVID-19 pneumonia.
--- NOTE | 2020-06-15 12:15 | RAD REPORT ---
EXAM DESCRIPTION: CT - Chest Abdomen Pelvis W Cont - 06/15/2020 12:08 pm CLINICAL HISTORY: Abdominal pain, COVID positive;Fever;Cough COMPARISON: No comparisons TECHNIQUE: Following dynamic enhancement using 100 milliliters nonionic IV contrast, axial imaging o f the chest, abdomen and pelvis was performed. Biphasic technique was utilized through the abdomen. No oral contrast administered. All CT scans are performed using dose optimization technique as appropriate and may include automated exposure control or mA/KV adjustment according to patient size. FINDINGS: Extensive bilateral ground-glass opacification scattered in the lung bernard a more periphe ral distribution pattern. No focal mass or cavitation. No pleural effusion, pleural thickening or pne umothorax. No significant aortic or pulmonary arterial tree finding. Mediastinal and hilar regions sh ow no mass or abnormal lymphadenopathy. No chest wall mass or axillary lymphadenopathy. The liver, spleen and pancreas show no suspicious findings. Gallbladder is absent. No biliary tree di latation. Symmetric renal function is seen with no mass or hydronephrosis. No adrenal abnormalities. No urinary bladder abnormality. Uterus is absent. Ovaries are absent or atrophic. No dilated bowel loops or focal bowel wall thickening. No acute GI findings seen. No acute or destructive bony process. No significant vascular findings. IMPRESSION: Moderate severity bilateral COVID-19 pneumonia pattern. No cavitation, pleural effusion or other complicating factor. No acute abdomen or pelvis findings.
[2020-06-15 12:28] LABS: ALT/SGPT 23 U/L (12-78); AST/SGOT 39 U/L (15-37); Albumin 2.6 g/dL (3.4-5.0); Alkaline Phosphatase 86 U/L (45-117); BUN Blood Urea Nitrogen 24 mg/dL (7-18); Bicarbonate 29 mmol/L (21-32); Bilirubin Direct 0.2 mg/dL (0-0.2); Bilirubin Total 0.4 mg/dL (0.2-1.0); Ferritin 1079.2 ng/mL (8-388); Glucose Level 113 mg/dL (74-106); Lipase 38 U/L (73-393); Potassium 3.5 mmol/L (3.5-5.1); Protein, Total 7.2 g/dL (6.4-8.2); Sodium Level 138 mmol/L (136-145)
[2020-06-15 12:30] LABS: Blood Morphology Comment NOT SEEN (NOT SEEN); Platelet Estimate ADEQ
--- NOTE | 2020-06-15 12:45 | ER ---
Nurse's Notes [facility] Name: Gale Villalpando Age: 45 yrs Sex: Female : 1975 Arrival Date: 06/15/2020 Time: 10:37 Bed 8 Private MD: Diagnosis: Coronavirus infection, unspecified;Pneumonia, unspecified organism;Dehydration;Diarrhea, unspecified Presentation: 06/15 10:40 Chief complaint: Patient states: S/S started 06/03/2020. Tested positive for Covid-19 ca1 06/05/2020. Symptoms reported on and off fever x 12 days, sore throat, N/V/D, loss of appetite. Had fever this morning, took Tylenol at 0800. Pt has Lupus and Psoriatic Arthritis. Initial V/S after ambulating from wheelchair to bed HR 117, SPO2 88% RA. Coronavirus screen: Client reports previous positive COVID test result. Date of collection: June 05, 2020 Staff notified of need for isolation. Ebola Screen: Patient negative for fever greater than or equal to 101.5 degrees Fahrenheit, and additional compatible Ebola Virus Disease symptoms Patient denies exposure to infectious person. Patient denies travel to an Ebola-affected area in the 21 days before illness onset. No symptoms or risks identified at this time. Initial Sepsis Screen: Does the patient meet any 2 criteria? No. Patient's initial sepsis screen is negative. Does the patient have a suspected source of infection? No. Patient's initial sepsis screen is negative. Risk Assessment: Do you want to hurt yourself or someone else? Patient reports no desire to harm self or others. Onset of symptoms was June 15, 2020. 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 - Social history:: Smoking status: Patient denies any tobacco usage or history of. Screenin:05 Abuse screen: Denies threats or abuse. Denies injuries from another. Nutritional ph screening: No deficits noted. Tuberculosis screening: No symptoms or risk factors identified. Fall Risk None identified. Assessment: 11:35 Reassessment: Pt's resting Spo2 89% RA, placed on 3L NC, improved to 94%. ph 12:02 General: Appears in no apparent distress. uncomfortable, well groomed, Behavior is ph calm, cooperative, appropriate for age, Reports chills for fever for > 3 days. Pain: Complains of pain in back and left lower quadrant. Neuro: Level of Consciousness is awake, alert, obeys commands, Oriented to person, place, time, situation, Reports dizziness, weakness. Cardiovascular: Reports chest pain, nausea, shortness of breath, vomiting, Capillary refill < 3 seconds in bilateral fingers Patient's skin is warm and dry. Rhythm is regular. Respiratory: Reports shortness of breath at rest cough that is pain with cough pain with respiration Airway is patent Respiratory effort is even, unlabored, Respiratory pattern is regular, symmetrical. GI: Abdomen is non-distended, Reports lower abdominal pain, diarrhea, nausea, vomiting. Derm: Skin is intact, Skin is pink, warm \T\ dry. Musculoskeletal: Circulation, motion, and sensation intact. Range of motion: intact in all extremities. 13:59 Reassessment: Patient appears in no apparent distress at this time. Patient and/or ph family updated on plan of care and expected duration. Pain level reassessed. Pt resting w/ eyes closed VSS, awaiting room assignment. Vital Signs: 10:40 BP 95 / 66; Pulse 95; Resp 20 S; Temp 97.8(TE); Pulse Ox 90% on R/A; Weight 68.04 kg ca1 (R); Height 5 ft. 4 in. (162.56 cm) (R); 12:06 BP 125 / 82; Pulse 78; Resp 22; Pulse Ox 94% on 3 lpm NC; ph 13:00 BP 124 / 72; Pulse 70; Resp 18; Pulse Ox 95% on 3 lpm NC; ph 14:00 BP 120 / 68; Pulse 66; Resp 18; Pulse Ox 98% on 3 lpm NC; ph 14:47 Temp 97.9; ph 10:40 Body Mass Index 25.75 (68.04 kg, 162.56 cm) ca1 ED Course: 10:37 Patient arrived in ED. rg4 10:41 Abdirahman Jean-Baptiste, PITER is PHCP. pm1 10:41 Willam Mills MD is Attending Physician. pm1 10:55 Triage completed. ca1 10:56 Arm band placed on right wrist. ca1 11:15 Yasmeen Lizarraga, RN is Primary Nurse. ph 11:30 Chest Single View XRAY In Process Unspecified. EDMS 11:35 Missed attempt(s): 22 gauge in right antecubital area. Bleeding controlled, band aid ph applied, catheter tip intact. 11:40 Initial lab(s) drawn, by me, sent to lab. Inserted saline lock: 22 gauge in left ph antecubital area, using aseptic technique. Blood collected. 12:05 Patient has correct armband on for positive identification. Placed in gown. Bed in low ph position. Call light in reach. Side rails up X 1. Pulse ox on. NIBP on. Door closed. Noise minimized. Warm blanket given. 12:08 CT Chest, Abdomen, Pelvis - W/Contrast In Process Unspecified. EDMS 12:44 Ponce Willams MD is Hospitalizing Provider. pm1 14:47 No provider procedures requiring assistance completed. Patient admitted, IV remains in ph place. Administered Medications: 11:23 Not Given (Patient Refused): Zofran (Ondansetron) 4 mg IVP once; over 2 minutes pm1 11:35 Drug: Albuterol HFA Inhaler 2 puffs Route: Inhalation; ph 14:46 Follow up: Response: No adverse reaction ph 11:40 Drug: NS 0.9% 1000 ml Route: IV; Rate: 1000 ml; Site: left antecubital; ph 14:47 Follow up: Response: No adverse reaction; IV Status: Completed infusion; IV Intake: ph 1000ml 11:43 Drug: Phenergan 12.5 mg Route: IVP; Site: left antecubital; ph 14:46 Follow up: Response: No adverse reaction ph 11:45 Drug: Decadron - Dexamethasone 10 mg Route: IVP; Site: left antecubital; ph 14:46 Follow up: Response: No adverse reaction ph 12:58 Drug: Phenergan 12.5 mg Route: IVP; Site: left antecubital; ph 14:46 Follow up: Response: No adverse reaction ph Intake: 14:47 IV: 1000ml; Total: 1000ml. ph Outcome: 12:44 Decision to Hospitalize by Provider. pm1 14:48 Patient left the ED. ph 14:48 Admitted to Med/surg accompanied by tech, via wheelchair, with oxygen, with chart. ph 14:48 Condition: stable 14:48 Instructed on the need for admit. ph Signatures: Dispatcher [employer] EDYasmeen Silvestre RN RN ph Abdirahman Jean-Baptiste, PITER DRY PRESS OPERATOR pm1 Frances Childs rg4 Christine Mcclure RN RN ca1 Corrections: (The following items were deleted from the chart) 10:57 10:40 Chief complaint: Patient states: S/S started 06/03/2020. Tested positive for ca1 Covid-19 06/05/2020. Symptoms reported on and off fever x 12 days, sore throat, N/V/D, loss of appetite. Had fever this morning, took Tylenol at 0800. Pt has Lupus and Psoriatic Arthritis. ca1
--- NOTE | 2020-06-15 12:45 | EDPHYS ---
Physician Documentation [facility] Name: Gale Villalpando Age: 45 yrs Sex: Female : 1975 Arrival Date: 06/15/2020 Time: 10:37 Bed 8 Private MD: ED Physician Willam Mills HPI: 06/15 10:59 This 45 yrs old Female presents to ER via Wheelchair with complaints of pm1 Vomiting/Diarrhea, Sore Throat, Covid+. 10:59 The patient presents to the emergency department with nausea, with "dry heaves", pm1 diarrhea, small amounts 6-7 times per day for the past 4 days, abdominal pain, of the left lower quadrant, described as crampy, and does not radiate. Onset: The symptoms/episode began/occurred Sore throat and cough onset 06/03 and was swabbed for covid on 06/05. Positive for covid. Reports decreased appetite with nausea and dry heaving for the past 4 days. Small quantities of diarrhea 6-7 times per day. Possible causes: Covid19. The symptoms are aggravated by nothing. The symptoms are alleviated by nothing. Associated signs and symptoms: Pertinent positives: abdominal pain, diarrhea, fever, nausea, Pertinent negatives: dysuria. Severity of symptoms: in the emergency department the symptoms are worse. The patient has not recently seen a physician. 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 - Social history:: Smoking status: Patient denies any tobacco usage or history of. ROS: 10:59 Constitutional: Negative for fever, chills, and weight loss, Eyes: Negative for injury, pm1 pain, redness, and discharge. 10:59 Neck: Negative for injury, pain, and swelling. 10:59 Back: Negative for injury and pain, : Negative for injury, bleeding, discharge, and swelling, MS/Extremity: Negative for injury and deformity, Skin: Negative for injury, rash, and discoloration. 10:59 Neuro: Negative for headache, weakness, numbness, tingling, and seizure. 10:59 ENT: Positive for sore throat, Negative for ear pain. 10:59 Cardiovascular: Positive for chest pain, with cough, Negative for edema, palpitations. 10:59 Respiratory: Positive for cough, shortness of breath. 10:59 Abdomen/GI: Positive for abdominal pain, nausea, diarrhea, of the left lower quadrant, Negative for vomiting, constipation. Exam: 10:59 Constitutional: This is a well developed, well nourished patient who is awake, alert, pm1 and in no acute distress. 10:59 Chest/axilla: Normal chest wall appearance and motion. Nontender with no deformity. pm1 No lesions are appreciated. 10:59 Back: No spinal tenderness. No costovertebral tenderness. Full range of motion. Skin: Warm, dry with normal turgor. Normal color with no rashes, no lesions, and no evidence of cellulitis. MS/ Extremity: Pulses equal, no cyanosis. Neurovascular intact. Full, normal range of motion. 10:59 Cardiovascular: Exam negative for acute changes, Rate: normal, Rhythm: regular, Pulses: no pulse deficits are appreciated, Heart sounds: normal, Edema: is not appreciated. 10:59 Respiratory: the patient does not display signs of respiratory distress, Respirations: normal, Breath sounds: bronchial sounds, are heard diffusely, Respiratory rate: 22 10:59 Neuro: Exam negative for acute changes, Orientation: is normal, Mentation: is normal, Motor: is normal, moves all fours. Vital Signs: 10:40 BP 95 / 66; Pulse 95; Resp 20 S; Temp 97.8(TE); Pulse Ox 90% on R/A; Weight 68.04 kg ca1 (R); Height 5 ft. 4 in. (162.56 cm) (R); 12:06 BP 125 / 82; Pulse 78; Resp 22; Pulse Ox 94% on 3 lpm NC; ph 13:00 BP 124 / 72; Pulse 70; Resp 18; Pulse Ox 95% on 3 lpm NC; ph 14:00 BP 120 / 68; Pulse 66; Resp 18; Pulse Ox 98% on 3 lpm NC; ph 14:47 Temp 97.9; ph 10:40 Body Mass Index 25.75 (68.04 kg, 162.56 cm) ca1 MDM: 10:42 Patient medically screened. pm1 12:25 Data reviewed: vital signs. pm1 12:31 Counseling: I had a detailed discussion with the patient and/or guardian regarding: the pm1 historical points, exam findings, and any diagnostic results supporting the discharge/admit diagnosis, lab results, radiology results, the need for further work-up and treatment in the hospital. 12:31 Physician consultation: Ponce Willams MD was contacted at 12:43, regarding admission, pm1 patient's condition, and will see patient. 06/15 10:51 Order name: Flu; Complete Time: 13:48 pm1 06/15 10:51 Order name: Strep; Complete Time: 12:17 pm1 06/15 10:54 Order name: Basic Metabolic Panel; Complete Time: 12:31 pm1 06/15 10:54 Order name: CBC with Diff; Complete Time: 12:31 pm1 06/15 10:54 Order name: Hepatic Function; Complete Time: 12:31 pm1 06/15 10:54 Order name: Lipase; Complete Time: 12:31 pm1 06/15 10:54 Order name: CRP; Complete Time: 12:31 pm1 06/15 10:54 Order name: Ferritin; Complete Time: 12:31 pm1 06/15 12:12 Order name: Throat Culture EDNJ 06/15 12:30 Order name: Manual Differential; Complete Time: 12:31 EDMS 06/15 12:55 Order name: C-Reactive Protein EDNJ 06/15 12:55 Order name: C-Reactive Protein EDNJ 06/15 12:55 Order name: CBC with Automated Diff EDMS 06/15 12:55 Order name: CBC with Automated Diff EDMS 06/15 10:51 Order name: Chest Single View XRAY; Complete Time: 12:17 pm06/15 10:54 Order name: CT Chest, Abdomen, Pelvis - W/Contrast; Complete Time: 12:17 pm1 06/15 12:55 Order name: Comprehensive Metabolic Panel EDNJ 06/15 12:55 Order name: Comprehensive Metabolic Panel EDMS 06/15 12:55 Order name: D-Dimer EDMS 06/15 12:55 Order name: D-Dimer EDMS 06/15 12:55 Order name: Ferritin EDMS 06/15 12:55 Order name: Ferritin EDMS 06/15 12:55 Order name: Protime (+INR) EDMS 06/15 12:55 Order name: Protime (+INR) EDNJ 06/15 12:55 Order name: PTT, Activated Partial Thromb EDMS 06/15 12:55 Order name: PTT, Activated Partial Thromb EDMS 06/15 10:52 Order name: Droplet/Contact Precautions; Complete Time: 12:01 pm1 06/15 10:54 Order name: IV Saline Lock; Complete Time: 12:01 pm1 06/15 10:54 Order name: Labs collected and sent; Complete Time: 12:01 pm1 06/15 10:57 Order name: O2 Per Protocol; Complete Time: 12:00 pm1 06/15 12:55 Order name: CONS Pharmacy Consult EDNJ 06/15 12:55 Order name: CONS Physician Consult EDNJ 06/15 12:55 Order name: Heart Healthy EDNJ Administered Medications: 11:23 Not Given (Patient Refused): Zofran (Ondansetron) 4 mg IVP once; over 2 minutes pm1 11:35 Drug: Albuterol HFA Inhaler 2 puffs Route: Inhalation; ph 14:46 Follow up: Response: No adverse reaction ph 11:40 Drug: NS 0.9% 1000 ml Route: IV; Rate: 1000 ml; Site: left antecubital; ph 14:47 Follow up: Response: No adverse reaction; IV Status: Completed infusion; IV Intake: ph 1000ml 11:43 Drug: Phenergan 12.5 mg Route: IVP; Site: left antecubital; ph 14:46 Follow up: Response: No adverse reaction ph 11:45 Drug: Decadron - Dexamethasone 10 mg Route: IVP; Site: left antecubital; ph 14:46 Follow up: Response: No adverse reaction ph 12:58 Drug: Phenergan 12.5 mg Route: IVP; Site: left antecubital; ph 14:46 Follow up: Response: No adverse reaction ph Disposition: 16:22 Co-signature as Attending Physician, Willam Mills MD I agree with the assessment and 4 plan of care. Disposition: 06/15/20 12:44 Hospitalization ordered by Ponce Willams for Inpatient Admission. Preliminary diagnosis are Coronavirus infection, unspecified, Pneumonia, unspecified organism, Dehydration, Diarrhea, unspecified. - Bed requested for Telemetry/MedSurg (Inpatient). - Status is Inpatient Admission. ph - Condition is Stable. - Problem is new. - Symptoms have improved. Signatures: Dispatcher [employer] EDLakisha Langley, RN RN dw Yasmeen Lizarraga RN RN ph Abdirahman Jean-Baptiste, DEVELOPMENT ADVISOR DEVELOPMENT ADVISOR pm1 Willam Mills MD MD tw4 Christine Mcclure RN RN ca1 Corrections: (The following items were deleted from the chart) 14:02 12:44 Hospitalization Ordered by Ponce Willams MD for Inpatient Admission. Preliminary dw diagnosis is Coronavirus infection, unspecified; Pneumonia, unspecified organism; Dehydration; Diarrhea, unspecified. Bed requested for Telemetry/MedSurg (Inpatient). Status is Inpatient Admission. Condition is Stable. Problem is new. Symptoms have improved. pm1 14:48 14:02 06/15/2020 12:44 Hospitalization Ordered by Ponce Willams MD for Inpatient ph Admission. Preliminary diagnosis is Coronavirus infection, unspecified; Pneumonia, unspecified organism; Dehydration; Diarrhea, unspecified. Bed requested for Telemetry/MedSurg (Inpatient). Status is Inpatient Admission. Condition is Stable. Problem is new. Symptoms have improved. dw
[2020-06-15] MEDS ORDERED: ACETAMINOPHEN 500 MG TAB PO PRN (12:50)
[2020-06-15] MEDS ORDERED: ALBUTEROL INHALER 60 PUFF/8 GM IH PRN (12:54)
[2020-06-15 17:22] VITALS: BMI 25.7
[2020-06-15] MEDS: ONDANSETRON 4 MG/2 ML VIAL IV PRN (17:40)
[2020-06-15] MEDS: MORPHINE 2 MG/ML SYR IV PRN ×2 (17:41→21:59)
[2020-06-15] MEDS: METHYLPREDNISOLONE 40 MG INJ IV SCH (20:31)
[2020-06-15] MEDS: APIXABAN 2.5 MG TABLET PO SCH (20:32)
[2020-06-15] MEDS: FAMOTIDINE 20 MG/2 ML VIAL IV SCH (20:32)
[2020-06-15] MEDS: PROMETHAZINE INJ 25 MG/ML AMP IV PRN (21:59)
[2020-06-16] MEDS: MORPHINE 2 MG/ML SYR IV PRN ×5 (01:54→21:53)
[2020-06-16] MEDS: ONDANSETRON 4 MG/2 ML VIAL IV PRN ×2 (03:10→12:26)
[2020-06-16] MEDS: PROMETHAZINE INJ 25 MG/ML AMP IV PRN ×2 (05:07→21:52)
[2020-06-16 05:23] LABS: Absolute Lymphocytes (CBC) 0.3 K/uL (0.7-4.9); Basophils % 0.9 % (0-1.3); Hematocrit 33.6 % (36.0-45.0); Lymphocytes % 7.9 % (15.3-44.8); MPV 8.4 fL (7.6-11.3); RBC Red Blood Cell Count 3.73 M/uL (3.86-4.86)
[2020-06-16 05:33] LABS: Protime INR 1.9
[2020-06-16 05:52] LABS: ALT/SGPT 20 U/L (12-78); AST/SGOT 30 U/L (15-37); Albumin 2.3 g/dL (3.4-5.0); Alkaline Phosphatase 78 U/L (45-117); BUN Blood Urea Nitrogen 20 mg/dL (7-18); Bicarbonate 28 mmol/L (21-32); Bilirubin Total 0.4 mg/dL (0.2-1.0); Ferritin 1036.5 ng/mL (8-388); Glucose Level 157 mg/dL (74-106); Potassium 3.8 mmol/L (3.5-5.1); Protein, Total 6.6 g/dL (6.4-8.2); Sodium Level 138 mmol/L (136-145)
[2020-06-16] MEDS: METHYLPREDNISOLONE 40 MG INJ IV SCH ×3 (08:22→21:52)
[2020-06-16] MEDS: FAMOTIDINE 20 MG/2 ML VIAL IV SCH ×2 (08:23→21:52)
[2020-06-16] MEDS: APIXABAN 2.5 MG TABLET PO SCH ×2 (08:24→21:53)
--- NOTE | 2020-06-16 09:54 | P.HP ---
Certification for Inpatient Patient admitted to: Inpatient With expected LOS: >2 Midnights Patient will require the following post-hospital care: None Practitioner: I am a practitioner with admitting privileges, knowledge of patient current condition, hospital course, and medical plan of care. Services: Services provided to patient in accordance with Admission requirements found in Title 42 Section 412.3 of the Code of Federal Regulations Patient History Date of Service: 06/15/20 Reason for admission: COVID-19 pneumonia History of Present Illness: Patient is a 45-year-old female came to the hospital with abdominal pain, nausea, vomiting, and diarrhea. This is been going on for the last few days. Her clinical symptoms are not getting any better. She came to the hospital for evaluation. In the ER she was given anti emetics and IV fluids. Chest x-ray revealed diffuse infiltrates of the lungs. She was diagnosed with COVID-19 pneumonia. She will be admitted to the hospital for further treatment. Start on IV steroids along with IV antibiotic therapy and gentle hydration. Patient inflammatory markers are significantly elevated. Will continue to monitor them closely. Continue on O2 per protocol. Allergies methotrexate Allergy (Unknown, Verified 06/15/20 20:37) unknown hydromorphone HCl [From Dilaudid] Allergy (Verified 09/02/12 12:43) Itching/Hives/Rash Tramadol HCl Allergy (Uncoded 03/10/17 19:22) Unknown Home Medications: Celecoxib [Celebrex] 200 mg PO BID 06/15/20 Gabapentin 300 mg PO DAILY 06/15/20 Leflunomide 20 mg PO DAILY 06/15/20 Morphine Sulfate [Morphine Sulfate ER] 15 mg PO Q12H PRN 06/15/20 Omeprazole 20 mg PO DAILY 06/15/20 Oxycodone HCl/Acetaminophen [Oxycodone-Acetaminophen 10-325] 1 each PO Q6HP PRN 06/15/20 Promethazine Tab [Phenergan] 25 mg PO Q6HP PRN 06/15/20 Secukinumab [Cosentyx Pen] 150 mg SQ UD 06/15/20 Tizanidine [Zanaflex] 4 mg PO Q6HP PRN 06/15/20 Trazodone [Desyrel] 150 mg PO BEDTIME 06/15/20 - Past Medical/Surgical History Has patient received pneumonia vaccine in the past: No Diabetic: No -: ARTHRITIS -: SPONDYLOSIS -: lupus -: psoriatic arthritis -: appendectomy -: c section x2 -: left knee repair x2 -: cholecystectomy -: hysterectomy -: oophrectomy - Family History Father Medical History: Heart disease, Diabetes Mother Medical History: Cancer - Social History Smoking Status: Never smoker Alcohol use: No CD- Drugs: No Caffeine use: Yes Place of Residence: Home Review of Systems 10-point ROS is otherwise unremarkable Physical Examination - Vital Signs Temperature: 96.8 F Blood Pressure: 122/62 Pulse: 58 Respirations: 16 Pulse Ox (%): 98 - Physical Exam General: Alert, In no apparent distress, Oriented x3 HEENT: Atraumatic, PERRLA, Mucous membr. moist/pink, EOMI, Sclerae nonicteric Neck: Supple, 2+ carotid pulse no bruit, No LAD, Without JVD or thyroid abnormality Respiratory: Diminished, Expiratory wheezes Cardiovascular: Regular rate/rhythm, Normal S1 S2, No murmurs Gastrointestinal: Normal bowel sounds, Soft and benign, Non-distended, No tenderness Musculoskeletal: No clubbing, No swelling, No tenderness Integumentary: No rashes Neurological: Normal gait, Normal speech, Normal strength at 5/5 x4 extr, Normal tone, Sensation intact, Cranial nerves 3-12 intact, Normal affect Lymphatics: No axilla or inguinal lymphadenopathy - Studies Laboratory Data (last 24 hrs) 06/15/20 11:45: WBC 5.7, Hgb 12.1, Hct 36.2, Plt Count 193 06/15/20 11:45: Sodium 138, Potassium 3.5, BUN 24 H, Creatinine 0.63, Glucose 113 H, Total Bilirubin 0.4, AST 39 H, ALT 23, Alkaline Phosphatase 86, Lipase 38 L Microbiology Data (last 24 hrs): 06/15/20 11:50 Throat Group A Streptococcus Rapid Screen - Final Assessment & Plan - Problems (Diagnosis) (1) COVID-19 Current Visit: Yes Status: Acute - Plan 1. Continue with IV antibiotics 2. Anti emetics and gentle hydration 3. Repeat chest x-ray is symptoms are progressively worsening 4. O2 per protocol 5. Pulmonary consultation 6. Continue with albuterol inhaler therapy; IV steroids; zinc and vitamin-C 7. O2 per protocol 8. Monitor LFTs 9. Repeat labs including D-dimer, ferritin, and CRP and LFTs 10. GI and DVT prophylaxis Discharge Plan: Home Plan to discharge in: Greater than 2 days - Advance Directives Does patient have a Living Will: No Does patient have a Durable POA for Healthcare: No - Code Status/Comfort Care Code Status Assessed: Yes Code Status: Full Code Critical Care: No Time Spent Managing PTS Care (In Minutes): 40
[2020-06-16] MEDS ORDERED: NA CHLORIDE 0.9% 1,000 ML IV SCH (10:00)
--- NOTE | 2020-06-16 10:34 | P.CNS ---
Date of Consult: 06/17/20 Chief Complaint: COVID-19 pneumonia History of Present Illness: Patient is 45 years of age diagnosed with vela virus 2 weeks ago became progressively more short of breath was admitted from the emergency room she is still weak short of breath over only on nasal cannula oxygen Allergies methotrexate Allergy (Unknown, Verified 06/15/20 20:37) unknown hydromorphone HCl [From Dilaudid] Allergy (Verified 09/02/12 12:43) Itching/Hives/Rash Tramadol HCl Allergy (Uncoded 03/10/17 19:22) Unknown Home Medications: Celecoxib [Celebrex] 200 mg PO BID 06/15/20 Gabapentin 300 mg PO DAILY 06/15/20 Leflunomide 20 mg PO DAILY 06/15/20 Morphine Sulfate [Morphine Sulfate ER] 15 mg PO Q12H PRN 06/15/20 Omeprazole 20 mg PO DAILY 06/15/20 Oxycodone HCl/Acetaminophen [Oxycodone-Acetaminophen 10-325] 1 each PO Q6HP PRN 06/15/20 Promethazine Tab [Phenergan] 25 mg PO Q6HP PRN 06/15/20 Secukinumab [Cosentyx Pen] 150 mg SQ UD 06/15/20 Tizanidine [Zanaflex] 4 mg PO Q6HP PRN 06/15/20 Trazodone [Desyrel] 150 mg PO BEDTIME 06/15/20 - Past Medical/Surgical History Diabetic: No -: ARTHRITIS -: SPONDYLOSIS -: lupus -: psoriatic arthritis -: appendectomy -: c section x2 -: left knee repair x2 -: cholecystectomy -: hysterectomy -: oophrectomy - Family History Father Medical History: Heart disease, Diabetes Mother Medical History: Cancer - Social History Smoking Status: Unknown if ever smoked Alcohol use: No CD- Drugs: No Caffeine use: Yes Place of Residence: Home Review of Systems General: Weakness Respiratory: Cough, Shortness of Breath Physical Examination Temp Pulse Resp BP Pulse Ox 96.8 F 58 16 122/62 98 06/16/20 09:54 06/16/20 09:54 06/16/20 09:54 06/16/20 09:54 06/16/20 09:54 Laboratory Data (last 24 hrs) 06/15/20 11:45: WBC 5.7, Hgb 12.1, Hct 36.2, Plt Count 193 06/15/20 11:45: Sodium 138, Potassium 3.5, BUN 24 H, Creatinine 0.63, Glucose 113 H, Total Bilirubin 0.4, AST 39 H, ALT 23, Alkaline Phosphatase 86, Lipase 38 L - Problems (1) COVID-19 Current Visit: Yes Status: Acute Plan: Patient is 45 years of age admitted with pneumonia due to vela virus she is bilateral infiltrates ferritin level is over above a 1000 CRP levels are also elevated up increase the dose of Solu-Medrol arrange for home oxygen if she remains stable tomorrow probably go home on high doses of steroids 20 mg twice a day for at least 10 days Dc IV fluids no evidence of sepsis
[2020-06-16] MEDS ORDERED: MORPHINE 2 MG/ML SYR IV ONE (13:13)
--- NOTE | 2020-06-16 14:05 | EKG ---
Test Date: 2020-06-16 Test Time: 13:31:51 Admissions Clinician: BUCK MEASUREMENT RESULTS: Intervals: Rate: 66 NH: 106 QRSD: 82 QT: 452 QTc: 473 [place]: P: 34 NH: 106 QRS: 32 T: 43 INTERPRETIVE STATEMENTS: Sinus rhythm with short NH Nonspecific ST abnormality Abnormal ECG Compared to ECG 03/10/2017 15:05:01 Short NH interval now present ST (T wave) deviation now present Sinus arrhythmia no longer present Prolonged QT interval no longer present Electronically Signed On 06-16-20 14:04:33 ACCREDITATION MANAGER by Tito Freeman
[2020-06-17] MEDS: MORPHINE 2 MG/ML SYR IV PRN ×2 (01:59→09:15)
--- NOTE | 2020-06-17 08:23 | P.PN ---
Subjective Date of Service: 06/16/20 Patient clinically is doing well. Will repeat inflammatory markers in the morning if there is continued improvement and hopefully we can get patient home. Review of Systems 10-point ROS is otherwise unremarkable Physical Examination - Vital Signs Temperature: 97.3 F Blood Pressure: 127/77 Pulse: 78 Respirations: 20 Pulse Ox (%): 96 - Physical Exam General: Alert, In no apparent distress, Oriented x3 Respiratory: Diminished, Expiratory wheezes Cardiovascular: Regular rate/rhythm, Normal S1 S2, No murmurs Gastrointestinal: Normal bowel sounds, Soft and benign, Non-distended, No tenderness Musculoskeletal: No clubbing, No swelling, No tenderness Neurological: Sensation intact, Cranial nerves 3-12 intact - Studies Microbiology Data (last 24 hrs): 06/15/20 11:50 Throat Culture & Sensitivity - Final Medications List Reviewed: Yes Assessment & Plan - Problems (Diagnosis) (1) COVID-19 Current Visit: Yes Status: Acute (2) SLE (systemic lupus erythematosus related syndrome) Current Visit: Yes Status: Acute (3) Psoriatic arthritis Current Visit: No Status: Acute - Plan 1. Continue with monitoring oxygenation. Clinically, patient continues to gradually improve 2. Continue with antiemetics and gentle hydration 3. Arrange for home oxygen 4. Monitor inflammatory markers 5. Continue albuterol inhaler therapy and cough medication 6. GI and DVT prophylaxis Discharge Plan: Home Plan to discharge in: Greater than 2 days - Advance Directives Does patient have a Living Will: No Does patient have a Durable POA for Healthcare: No - Code Status/Comfort Care Code Status: Full Code Critical Care: No Time Spent Managing PTS Care (In Minutes): 35
[2020-06-17] MEDS: PROMETHAZINE INJ 25 MG/ML AMP IV PRN ×2 (09:10→16:00)
[2020-06-17] MEDS: APIXABAN 2.5 MG TABLET PO SCH ×2 (09:16→20:58)
[2020-06-17] MEDS: FAMOTIDINE 20 MG/2 ML VIAL IV SCH (09:16)
[2020-06-17] MEDS: METHYLPREDNISOLONE 40 MG INJ IV SCH ×3 (09:17→20:57)
[2020-06-17] MEDS ORDERED: PROMETHAZINE 25 MG TABLET PO PRN (11:01)
[2020-06-17] MEDS ORDERED: HOME MED 1 EA UNK (Oxycodone Hcl/Acetaminophen [Oxycodone-Acetaminophen 10-325] Tablet) PO PRN (11:01)
[2020-06-17] MEDS ORDERED: TIZANIDINE 4 MG TABLET PO PRN (11:01)
[2020-06-17] MEDS ORDERED: COSENTYX 150 MG/ML SQ SCH (11:15)
[2020-06-17 11:58] LABS: BUN Blood Urea Nitrogen 31 mg/dL (7-18); Bicarbonate 30 mmol/L (21-32); Ferritin 1046.3 ng/mL (8-388); Glucose Level 121 mg/dL (74-106); Magnesium 2.5 mg/dL (1.8-2.4); NT PRO-BNP 394 pg/mL (<125); Potassium 4.3 mmol/L (3.5-5.1); Sodium Level 141 mmol/L (136-145)
[2020-06-17] MEDS ORDERED: OXYCODONE HCL 5 MG TAB PO PRN (13:29)
[2020-06-17] MEDS ORDERED: Oxycodone HCl/Acetaminophen 1 TAB TAB PO PRN (13:30)
[2020-06-17] MEDS: NA CHLORIDE 0.9% 1,000 ML IV SCH (13:33)
[2020-06-17] MEDS: MORPHINE 15 MG IR TAB PO PRN (13:38)
[2020-06-17] MEDS ORDERED: NA CHLORIDE 0.9% 500 ML IV ONE (14:00)
[2020-06-17] MEDS: GABAPENTIN 300 MG CAP PO SCH (16:01)
[2020-06-17] MEDS: PANTOPRAZOLE 40MG TABLET PO SCH (16:01)
[2020-06-17] MEDS: CELECOXIB 100 MG CAPSULE PO SCH ×2 (16:02→20:58)
[2020-06-17] MEDS ORDERED: TRAZODONE 150 MG TAB PO SCH (21:00)
[2020-06-17] MEDS ORDERED: HOME MED 1 EA UNK (Celecoxib [Celebrex] 200 MG Capsule) PO SCH (21:00)
[2020-06-17] MEDS: ONDANSETRON 4 MG/2 ML VIAL IV PRN (21:00)
[2020-06-17] MEDS ORDERED: TRAZODONE 50 MG TABLET PO SCH (21:00)
--- NOTE | 2020-06-18 04:29 | P.PN ---
Subjective Date of Service: 06/17/20 Patient became very tearful when we told her she would probably be going home. Daughter out of bed and to almost passed out. Nursing staff ambulated her and she almost fell at the nursing station. She is a little pre renal and we will gently hydrate her. Continue on IV steroids along with inhaler therapy. Patient's long-term prognosis remains good. Patient is on numerous medications at home for pain control. Continue with oral pain medications. Pulmonary has evaluated and patient is stable from a pulmonary standpoint to go home. Home oxygen has already been arranged. Review of Systems 10-point ROS is otherwise unremarkable Physical Examination - Vital Signs Temperature: 97.3 F Blood Pressure: 127/77 Pulse: 78 Respirations: 20 Pulse Ox (%): 96 - Physical Exam General: Alert, In no apparent distress, Oriented x3 Respiratory: Normal air movement, Diminished, Expiratory wheezes Cardiovascular: Regular rate/rhythm, Normal S1 S2, No murmurs Gastrointestinal: Normal bowel sounds, Soft and benign, Non-distended, No rebound, No guarding Musculoskeletal: No clubbing, No swelling Neurological: Cranial nerves 3-12 intact, Abnormal gait, Abnormal strength - Studies Microbiology Data (last 24 hrs): 06/15/20 11:50 Throat Culture & Sensitivity - Final Medications List Reviewed: Yes Assessment & Plan - Problems (Diagnosis) (1) COVID-19 Current Visit: Yes Status: Acute (2) SLE (systemic lupus erythematosus related syndrome) Current Visit: Yes Status: Acute (3) Psoriatic arthritis Current Visit: No Status: Acute - Plan 1. Home oxygen is arranged. Oxygen is in the room. Patient is stable to go home as long as she is ambulating appropriately. 2. Continue with antiemetics and gentle hydration 3. Resume home medications for pain control 4. Monitor inflammatory markers 5. Continue albuterol inhaler therapy and cough medication 6. GI and DVT prophylaxis Discharge Plan: Home Plan to discharge in: 24 Hours - Advance Directives Does patient have a Living Will: No Does patient have a Durable POA for Healthcare: No - Code Status/Comfort Care Code Status: Full Code Critical Care: No Time Spent Managing PTS Care (In Minutes): 45
[2020-06-18] MEDS: MORPHINE 15 MG IR TAB PO PRN (04:41)
[2020-06-18] MEDS: NA CHLORIDE 0.9% 1,000 ML IV SCH (04:42)
[2020-06-18 05:31] LABS: Absolute Lymphocytes (CBC) 0.3 K/uL (0.7-4.9); Basophils % 0.4 % (0-1.3); Hematocrit 32.3 % (36.0-45.0); Lymphocytes % 4.3 % (15.3-44.8); MPV 8.9 fL (7.6-11.3); RBC Red Blood Cell Count 3.57 M/uL (3.86-4.86)
[2020-06-18 05:57] LABS: Albumin 2.3 g/dL (3.4-5.0); Bilirubin Total 0.3 mg/dL (0.2-1.0); C-Reactive Protein 37.9 mg/L (<3.00); Ferritin 878.2 ng/mL (8-388); Magnesium 2.3 mg/dL (1.8-2.4); Potassium 3.8 mmol/L (3.5-5.1); Protein, Total 6.1 g/dL (6.4-8.2)
--- NOTE | 2020-06-18 07:31 | P.DS ---
Admission Date: 06/15/20 Discharge Date: 06/18/20 Primary Care Provider: [facility] Disposition: ROUTINE DISCHARGE Discharge Condition: GOOD Reason for Admission: COVID-19 pneumonia Consultations: Pulmonary-Dr. Rowell Procedures: CT Chest/Ab: FINDINGS: Extensive bilateral ground-glass opacification scattered in the lung bernard a more peripheral distribution pattern. No focal mass or cavitation. No pleural effusion, pleural thickening or pneumothorax. No significant aortic or pulmonary arterial tree finding. Mediastinal and hilar regions show no mass or abnormal lymphadenopathy. No chest wall mass or axillary lymphadenopathy. The liver, spleen and pancreas show no suspicious findings. Gallbladder is absent. No biliary tree dilatation. Symmetric renal function is seen with no mass or hydronephrosis. No adrenal abnormalities. No urinary bladder abnormality. Uterus is absent. Ovaries are absent or atrophic. No dilated bowel loops or focal bowel wall thickening. No acute GI findings seen. No acute or destructive bony process. No significant vascular findings. IMPRESSION: Moderate severity bilateral COVID-19 pneumonia pattern. No cavi tation, pleural effusion or other complicating factor. No acute abdomen or pelvis findings. Medical Problem List: Bilateral COVID 19 pneumonia with hypoxia Nausea, vomiting with diarrhea and mild dehydration Psoriatic arthritis with chronic pain Brief History of Present Illness: 45 yo HF with nausea, vomiting and dehydration. Found to have bilateral COVID pneumonia. She was admitted for further treatment. Hospital Course: Patient presented with nausea, vomiting with diarrhea with noted dehydration. Patient was also found to have bilateral COVID pneumonia with hypoxia. The patient was admitted for treatment. Patient was seen and evaluated by pulmonology. The patient has done well with IV fluid hydration and treatment. At discharge patient requires home oxygen. Currently on 2 L per nasal cannula. She will continue with oxygen at home. At discharge she will continue with prednisone 20 mg 1 pill twice daily for 7 days then 1 pill once daily for 7 days. The patient will also be given Eliquis 5 mg 1 pill twice daily for 10 days. Medication for cough, congestion noted. Patient may take vitamin-C, vitamin-D at home. Recommend follow up with pulmonology within 1 week to follow up this hospitalization and continue her care. Patient will continue with CDC guidelines on isolation. Education will be provided. Patient with history of psoriatic arthritis and chronic pain. At discharge she will continue with her current medications including Celebrex, gabapentin, leflunomide, cosentyx, morphine ER, oxycodone as needed for pain, Zanaflex 4 mg as needed for muscle spasm, and trazodone. Recommend follow up with Rheumatology and chronic pain management to further address her condition. Vital Signs/Physical Exam: Temp Pulse Resp BP Pulse Ox 97.3 F 78 20 127/77 95 06/18/20 04:29 06/18/20 04:29 06/18/20 04:41 06/18/20 04:29 06/18/20 04:41 General: Alert, In no apparent distress, Oriented x3, Cooperative HEENT: Atraumatic Neck: Supple Respiratory: Other (Patient on 2 L per nasal cannula. No distress noted) Cardiovascular: Normal pulses Gastrointestinal: No guarding Neurological: Normal speech, Normal strength at 5/5 x4 extr, Normal tone, Normal affect Laboratory Data at Discharge: WBC 6.9 K/uL (4.3-10.9) D 06/18/20 05:10 Hgb 10.7 g/dL (12.0-15.0) L 06/18/20 05:10 Hct 32.3 % (36.0-45.0) L 06/18/20 05:10 Plt Count 262 K/uL (152-406) D 06/18/20 05:10 PT 22.1 SECONDS (9.5-12.5) H 06/16/20 05:11 INR 1.90 06/16/20 05:11 APTT 30.9 SECONDS (24.3-36.9) 06/16/20 05:11 Sodium 139 mmol/L (136-145) 06/18/20 05:10 Potassium 3.8 mmol/L (3.5-5.1) 06/18/20 05:10 BUN 29 mg/dL (7-18) H 06/18/20 05:10 Creatinine 0.71 mg/dL (0.55-1.3) 06/18/20 05:10 Glucose 125 mg/dL (74-106) H 06/18/20 05:10 Magnesium 2.3 mg/dL (1.8-2.4) 06/18/20 05:10 Total Bilirubin 0.3 mg/dL (0.2-1.0) 06/18/20 05:10 AST 37 U/L (15-37) 06/18/20 05:10 ALT 31 U/L (12-78) 06/18/20 05:10 Alkaline Phosphatase 71 U/L (45-117) 06/18/20 05:10 Troponin I < 0.02 ng/mL (0.0-0.045) 06/16/20 14:00 Lipase 38 U/L (73-393) L 06/15/20 11:45 Home Medications: Celecoxib [Celebrex] 200 mg PO BID 06/15/20 Gabapentin 300 mg PO DAILY 06/15/20 Leflunomide 20 mg PO DAILY 06/15/20 Morphine Sulfate [Morphine Sulfate ER] 15 mg PO Q12H PRN 06/15/20 Omeprazole 20 mg PO DAILY 06/15/20 Oxycodone HCl/Acetaminophen [Oxycodone-Acetaminophen 10-325] 1 each PO Q6HP PRN 06/15/20 Promethazine Tab [Phenergan*] 25 mg PO Q6HP PRN 06/15/20 Secukinumab [Cosentyx Pen] 150 mg SQ UD 06/15/20 Tizanidine [Zanaflex*] 4 mg PO Q6HP PRN 06/15/20 Trazodone [Desyrel*] 150 mg PO BEDTIME 06/15/20 Albuterol Inhaler [Ventolin Inhaler*] 2 puff IH Q6H PRN #1 hfa.aer.ad 06/17/20 Apixaban [Eliquis *] 5 mg PO BID #20 tablet 06/17/20 Azithromycin Tab [Zithromax*] 250 mg PO ZPAK #1 jessie 06/17/20 Benzonatate [Tessalon Perle] 200 mg PO TID #30 cap 06/17/20 predniSONE [Prednisone*] 20 mg PO SEECOM #21 tab 06/18/20 New Medications: Apixaban [Eliquis *] 5 mg PO BID #20 tablet predniSONE [Prednisone*] 20 mg PO SEECOM #21 tab Benzonatate [Tessalon Perle] 200 mg PO TID #30 cap Albuterol Inhaler [Ventolin Inhaler*] 2 puff IH Q6H PRN #1 hfa.aer.ad PRN Reason: Shortness Of Breath Azithromycin Tab [Zithromax*] 250 mg PO ZPAK #1 jessie Patient Discharge Instructions: Patient presented with nausea, vomiting with diarrhea with noted dehydration. Patient was also found to have bilateral COVID pneumonia with hypoxia. The patient was admitted for treatment. Patient was seen and evaluated by pulmonology. The patient has done well with IV fluid hydration and treatment. At discharge patient requires home oxygen. Currently on 2 L per nasal cannula. She will continue with oxygen at home. At discharge she will continue with prednisone 20 mg 1 pill twice daily for 7 days then 1 pill once daily for 7 days. The patient will also be given Eliquis 5 mg 1 pill twice daily for 10 days. Medication for cough, congestion noted. Patient may take vitamin-C, vitamin-D at home. Recommend follow up with pulmonology within 1 week to follow up this hospitalization and continue her care. Patient will continue with CDC guidelines on isolation. Education will be provided. Patient with history of psoriatic arthritis and chronic pain. At discharge she will continue with her current medications including Celebrex, gabapentin, leflunomide, cosentyx, morphine ER, oxycodone as needed for pain, Zanaflex 4 mg as needed for muscle spasm, and trazodone. Recommend follow up with Rheumatology and chronic pain management to further address her condition. OK TO DC IV AND DC HOME. FOLLOW-UP WITH PRIMARY CARE PROVIDER IN 1-2 WEEKS. FOLLOW-UP WITH Pulmonary and Rheumatology IN 1-2 WEEKS. RETURN TO THE ER IF symptoms worsen. CALL or TEXT DR. HOWARD AT [phone] IF ANY QUESTIONS REGARDING HOSPITAL STAY. PLEASE CALL THE FLOOR AT [phone] IF ANY MEDICATION OR NURSING QUESTIONS. Diet: Regular Activity: Fall precautions Followup: NONE,NONE [Primary Care Provider] - Time spent managing pt's care (in minutes): 55
[2020-06-18] MEDS: CELECOXIB 100 MG CAPSULE PO SCH (07:57)
[2020-06-18] MEDS: APIXABAN 2.5 MG TABLET PO SCH (07:58)
[2020-06-18] MEDS: PANTOPRAZOLE 40MG TABLET PO SCH (07:58)
[2020-06-18] MEDS: METHYLPREDNISOLONE 40 MG INJ IV SCH (07:58)
[2020-06-18] MEDS: GABAPENTIN 300 MG CAP PO SCH (07:58)
[2020-06-18 08:53] VITALS: BP 133/66; TEMP 97.1
[2020-06-18] MEDS ORDERED: LEFLUNOMIDE 20 MG PO SCH (09:00)
[2020-06-18] MEDS ORDERED: HOME MED 1 EA UNK (Omeprazole [Omeprazole] 20 MG Capsule.Dr) PO SCH (09:00)
[2020-06-18 09:34] VITALS: O2SAT 95
== END 2020-06-18 09:12 | disposition home or self-care (01) | DRG 177 ==
LOC: ER 10:34 → ERHOLD 12:52 → 4TH 14:20
PROVIDERS: ADMIT Hospitalist; ATTEND Family Medicine
DX: U07.1 COVID-19 (principal); J12.82 Pneumonia due to coronavirus disease 2019; M32.9 Systemic lupus erythematosus, unspecified; E86.0 Dehydration; L40.50 Arthropathic psoriasis, unspecified; G89.29 Other chronic pain; Z90.710 Acquired absence of both cervix and uterus; Z88.5 Allergy status to narcotic agent; Z90.49 Acquired absence of other specified parts of digestive tract; Z88.8 Allergy status to other drugs, medicaments and biological substances; Z79.899 Other long term (current) drug therapy; Z79.01 Long term (current) use of anticoagulants; Z79.52 Long term (current) use of systemic steroids
CPT/HCPCS: 36415; 71045; 71260; 74177; 80048; 80053; 80076; 82565; 82728; 82947; 83605; 83690; 83735; 83880; 84484; 85025; 85379; 85610; 85730; 86140; 87070; 87081; 87804; 93005; 96361; 96374; 96375; 99285; J1100; J2270; J2405; J2550; J2920; J7030; J7040; Q9967